=== PATIENT | male | born 1955 | race Caucasian/White ===

== ENCOUNTER 2018-10-13 20:18 | Inpatient (IN) ==
[2018-10-13] MEDS ORDERED: ASPIRIN ONE (20:23)
[2018-10-13] MEDS ORDERED: ASPIRIN PO ONE (20:27)
[2018-10-13] MEDS ORDERED: CARDIZEM ONE (20:33)
[2018-10-13] MEDS ORDERED: CARDIZEM IV ONE (20:35)
[2018-10-13 20:49] LABS: BASO% 0.8 % (0.0-0.8); EOS# 0.12 X1000 (0.0-0.7); HEMATOCRIT 35.4 % (42.0-52.0); HEMOGLOBIN 11.3 g/dL (14.0-18.0); IMM GRAN# 0.03 X1000 (0.0-0.04); IMM GRAN% 0.3 % (0.0-0.5); LYMPH# 1.62 X1000 (1.2-3.4); LYMPH% 13.5 % (20.5-51.1); MCH 33.5 PG (27-31); MCHC 31.9 g/dL (33-37); MONO# 1.53 X1000 (0.11-0.59); MONO% 12.8 % (1.7-9.3); MPV 9.8 FL (7.4-10.4); NEUT# 8.56 X1000 (1.4-6.5); NEUT% 71.6 % (42.2-75.2); PLT 303 X1000 (130-400); RBC 3.37 XMIL (4.7-6.1); RDW 14.1 % (11.5-14.5); WBC 11.96 X1000 (4.8-10.8)
[2018-10-13] MEDS ORDERED: CORDARONE IV ONE ×2 (20:56→21:45)
[2018-10-13 21:06] LABS: INR 1.11; PROTIME 14.9 Seconds (11.0-16.0)
[2018-10-13 21:07] LABS: PTT 30.9 Seconds (22.3-41.8)
[2018-10-13 21:13] LABS: AGAP 13; ALBUMIN 3.6 g/dL (3.5-5.0); ALKALINE PHOSPHATASE 87 U/L (32-122); BUN 13 mg/dL (8-22); CALCIUM 8.8 mg/dL (8.8-10.2); CHLORIDE 92 mmol/L (98-107); CK PROFILE 96 U/L (24-204); COSMO 282; CREATININE 0.8 mg/dL (0.7-1.2); ESTIMATED GFR > 60; GLUCOSE 304 mg/dL (70-104); GOT 10 U/L (10-34); GPT 8 U/L (10-44); POTASSIUM 3.8 mmol/L (3.5-5.1); SODIUM 135 mmol/L (136-145); TCO2 30 mmol/L (25-35); TOTAL PROTEIN 7.3 g/dL (6.3-8.3)
--- NOTE | 2018-10-13 21:33 | Diag Imaging Result Doc PS360 ---
EXAM: CHEST-1 VIEW - 10/13/2018 HISTORY: cp TECHNIQUE: Portable chest COMPARISON: 12/20/2017 FINDINGS: Heart size is normal. There are COPD/emphysematous changes. There is no dense consolidation, pleural effusion, or pneumothorax identified. IMPRESSION: COPD/emphysematous changes. No discrete pneumonia. No pneumothorax. Electronically signed by Colin Gramajo 10/13/2018 9:31 PM
[2018-10-13] MEDS ORDERED: MORPHINE IV ONE ×2 (21:49→23:35)
[2018-10-13] MEDS ORDERED: ZOFRAN IV ONE (21:49)
[2018-10-13] MEDS ORDERED: CARDIZEM 100 MG/NS 100 MG/100 ML IVPB IV SCH ×2 (22:00→23:45)
--- NOTE | 2018-10-13 22:04 | PROVIDER DOCUMENTATION ---
This chart was entered by Marli Reyna Scribe, acting as scribe for Florentino Obrien MD. HPI-Chest Pain - General Chief Complaint: Chest Pain Stated Complaint: CP Time Seen by Provider: 10/13/18 20:22 Source: patient Allergies/Adverse Reactions: Patient Allergies Allergy/AdvReac Type Severity Reaction Status Date / Time pneumococcal vaccine Allergy Unknown Verified 12/06/15 15:21 Home Medications: Home Medication List Medication Instructions Recorded Confirmed Last Taken Type Aspirin 81 mg PO DAILY 08/02/12 06/29/17 Unknown History Amiodarone [Cordarone] 200 mg PO DAILY 12/06/15 06/29/17 Unknown History Lisinopril/Hydrochlorothiazide 1 each PO DAILY 12/06/15 06/29/17 Unknown History [Lisinopril-Hctz 20-25 mg Tab] PRAVAstatin [Pravachol] 40 mg PO QHS 12/06/15 06/29/17 Unknown History Albuterol Sulfate Inhaler 2 puff INH Q6H PRN PRN 06/29/17 06/29/17 Unknown History [Ventolin Hfa] Ipratropium/Albuterol Sulfate 3 ml IH DAILY PRN 06/29/17 06/29/17 Unknown History [Iprat-Albut 0.5-3(2.5) mg/3 ml] Metformin HCl [Fortamet] 1,000 mg PO DAILY 06/29/17 06/29/17 Unknown History - History of Present Illness-CP Nature of Presenting Problem: pt is a 62 yr old male presenting with complaint of chest pain and worsening shortness of breath. pt reports while sitting, talking her began having chest pain, dypnea worsened. pt hx of COPD and is on 3L continuous o2 home. Location: reports: central Chest Pain Radiation: reports: no radiation Quality of Pain: reports: dull Severity in ED: moderate Onset/Duration: this morning Timing: constant Context/Activities at Onset: reports: light activity Modifying Factors: improves with: exercise (worsens sypmtoms) Associated Symptoms: reports: shortness of breath. denies: nausea Nitro Today/Relief: no nitro taken today Aspirin Treatment Today: 325 mg x 1, provided by ED Similar Symptoms Previously?: No Recently Seen Here or By Another Healthcare Provider: No Review of Systems - Adult - REVIEW OF SYSTEMS - ADULT Constitutional: reports: fatique. denies: chills, fever Eyes: denies: discharge, redness Ears, Nose, Mouth & Throat: reports: no symptoms reported Cardiovascular: reports: chest pain. denies: palpitations, syncope Respiratory: reports: dyspnea on exertion, shortness of breath. denies: cough Gastrointestinal: reports: no symptoms reported Genitourinary: reports: no symptoms reported Musculoskeletal: reports: no symptoms reported Integumentary: reports: no symptoms reported Neurological: denies: dizziness/vertigo, headache/migraines Psychiatric: reports: no symptoms reported Endocrine: reports: no symptoms reported Hematologic/Lymphatic: reports: no symptoms reported Allergic/Immunologic: reports: no symptoms reported All Other Systems: Reviewed and Negative Past History - Adult - PAST MEDICAL HISTORY-ADULT Review of Records: reports: Old Records Reviewed, Nursing Assessment Review, Medications Reviewed, Social history reviewed & non-contributory. Major Childhood Illnesses: reports: denies history Cardiovascular: reports: A-Fib, CHF, HTN Respiratory: reports: COPD Gastrointestinal: reports: denies history Obstetrical/Gynecological: reports: denies history Genitourinary: reports: denies history Musculoskeletal: reports: denies history Neurological: reports: denies history Endocrine/Immune: reports: Diabetes Other Conditions: reports: denies history - PRIOR SURGERIES/PROCEDURES Surgical/Procedure History: reports: reviewed, not pertinent - IMMUNIZATION STATUS Childhood Immunizations: See Nurse Assessment Flu Vaccine: See Nurse Assessment - FAMILY HISTORY Family History: reviewed, not pertinent - SOCIAL HISTORY Smoking: cigarettes, greater than 1 pack/day Provider spent 3-5 mins advising pt. on dangers of tobacco.: Discussed manners to quit use, and f/u contacts for add'l counseling. Substance Use: alcohol Alcohol Use Frequency: 3-4 times a week Number of drinks per typical drinking period:: 3-4 drinks Living Situation: alone Physical Exam-General - PHYSICAL EXAM-ADULT Initial Vital Signs Reviewed: Yes - CONSTITUTIONAL General Appearance: alert, moderate distress, obese - EYES Eyes: PERRL/EOMI - HEAD, EARS, NOSE, MOUTH & THROAT HENMT: moist mucous membranes - NECK Neck: non-tender, full range of motion, supple, normal inspection - RESPIRATORY Respiratory: decreased breath sounds, accessory muscle use, prolonged expiration , increased rate, other (shallow breathing with prolonged, pursed lip expirations) - CARDIOVASCULAR Cardiovascular: normal peripheral pulses, regular rate, rhythm, no edema - GASTROINTESTINAL (ABDOMEN) Abdominal Exam: normal bowel sounds, non tender, soft - LYMPHATIC Lymphatic: no adenopathy - MUSCULOSKELETAL Back Exam: normal inspection, no CVA tenderness, no vertebral tenderness Extremity: normal range of motion, non-tender, normal inspection - SKIN Integumentary: normal color, normal turgor, warm/dry - NEUROLOGIC Neurologic: grossly normal, no motor/sensory deficits - PSYCHIATRIC Psych/Mental Status: normal mood/affect - HEART Score HEART Score: History: Slightly Suspicious HEART Score: ECG: Non-Specific Repolarization Disturbance/LBBB/PM HEART Score: Age: 45-65 Years HEART Score: Risk Factors for Atherosclerotic Disease: > or = 3 Risk Factors or History of Atherosclerotic Disease HEART Score: Troponin: < or = Normal Limit (4) Total HEART Score:: 4 Progress - PLAN OF CARE/RESULTS Progress/Plan/Lab Results: Vital Signs - 8 hr 10/13/18 20:20 10/13/18 20:52 Temperature 98.4 F Pulse Rate 170 H 132 H Respiratory Rate 20 19 Blood Pressure 161/129 100/82 O2 Sat by Pulse Oximetry 93 L 95 Laboratory Results - last 24 hr 10/13/18 10/13/18 10/13/18 20:35 20:35 20:35 WBC 11.96 H RBC 3.37 L Hgb 11.3 L Hct 35.4 L MCV 105.0 H MCH 33.5 H MCHC 31.9 L RDW Std Deviation 14.1 Plt Count 303 MPV 9.8 Immature Gran % (Auto) 0.3 Neut % (Auto) 71.6 Lymph % (Auto) 13.5 L Summers % (Auto) 12.8 H Eos % (Auto) 1.0 Baso % (Auto) 0.8 Immature Gran # (Auto) 0.03 Neut # (Auto) 8.56 H Lymph # (Auto) 1.62 Summers # (Auto) 1.53 H Eos # (Auto) 0.12 Baso # (Auto) 0.10 PT INR PTT (Actin FS) Sodium 135 L Potassium 3.8 Chloride 92 L Carbon Dioxide 30 Anion Gap 13 BUN 13 Creatinine 0.8 Estimated GFR/1.73 m2 > 60 BUN/Creatinine Ratio 16 Glucose 304 H POC Glucose Calculated Osmolality 282 Calcium 8.8 Total Bilirubin 0.40 AST 10 ALT 8 L Alkaline Phosphatase 87 Creatine Kinase 96 Troponin T Ioy-I-Zjqfspgiijy Pept 221 H Total Protein 7.3 Albumin 3.6 Globulin 4.0 Albumin/Globulin Ratio 1.0 10/13/18 10/13/18 10/13/18 20:35 20:35 20:56 WBC RBC Hgb Hct MCV MCH MCHC RDW Std Deviation Plt Count MPV Immature Gran % (Auto) Neut % (Auto) Lymph % (Auto) Summers % (Auto) Eos % (Auto) Baso % (Auto) Immature Gran # (Auto) Neut # (Auto) Lymph # (Auto) Summers # (Auto) Eos # (Auto) Baso # (Auto) PT 14.9 INR 1.11 PTT (Actin FS) 30.9 Sodium Potassium Chloride Carbon Dioxide Anion Gap BUN Creatinine Estimated GFR/1.73 m2 BUN/Creatinine Ratio Glucose POC Glucose 330 H D Calculated Osmolality Calcium Total Bilirubin AST ALT Alkaline Phosphatase Creatine Kinase Troponin T < 0.010 Ber-C-Jvlnhptbcrv Pept Total Protein Albumin Globulin Albumin/Globulin Ratio Orders Category Date Time Status Admit - [facility] Routine AdmDCTranf 10/13/18 22:02 Ordered Cardiac Monitoring DIRECTED Care 10/13/18 20:28 Active Oxygen Therapy- ED Nursing DIRECTED Care 10/13/18 20:28 Active Saline Loc NOW Care 10/13/18 20:28 Active CHEST-1 VIEW [RAD] Stat Exams 10/13/18 20:58 Completed CBC WITH ELECTRONIC DIFF [HEME] Stat Lab 10/13/18 20:35 Completed CK PROFILE [SP CHEM] Stat Lab 10/13/18 20:35 Completed COMPREHENSIVE METABOLIC PANEL [CHEM] Stat Lab 10/13/18 20:35 Completed PRO B-NATRIURETIC PEPTIDE Stat Lab 10/13/18 20:35 Completed PROTIME WITH INR [COAG] Stat Lab 10/13/18 20:35 Completed PTT [COAG] Stat Lab 10/13/18 20:35 Completed TROPONIN T Stat Lab 10/13/18 20:35 Completed Amiodarone [Cordarone] Med 10/13/18 20:56 Discontinued 150 mg IV NOW ONE Amiodarone [Cordarone] Med 10/13/18 21:45 Discontinued 150 mg IV NOW ONE Aspirin Med 10/13/18 20:23 Discontinued 325 mg .ROUTE .STK-MED ONE Aspirin Med 10/13/18 20:27 Discontinued 325 mg PO NOW ONE Diltiazem 100 mg/Ns [Cardizem 100 mg/Ns] Med 10/13/18 22:00 Ordered 100 mg in 100 ml IV As Directed Diltiazem [Cardizem] Med 10/13/18 20:35 Discontinued 10 mg IV NOW ONE Diltiazem [Cardizem] Med 10/13/18 20:33 Discontinued 25 mg .ROUTE .STK-MED ONE Morphine Med 10/13/18 21:49 Discontinued 4 mg IV NOW ONE Ondansetron [Zofran] Med 10/13/18 21:49 Discontinued 4 mg IV NOW ONE CP/SOB/Palp >45 yrs of Age Stat Oth 10/13/18 20:28 Ordered EKG [EKG] Stat Ther 10/13/18 20:28 Ordered Transfer/Admit Order [TRANSFER] Routine Transfer 10/13/18 22:01 Ordered A/P: Afib w RVR. Gave 2 doses of 10 mg Cardizem, 2 doses of miodarone 150 mg, has not resolved RVR. Will admit to Dr alonso Result Diagrams: 10/13/18 20:35 10/13/18 20:35 - CONSULTS/PCP/HOSPITALIST Notification #1 *Consult/PCP/Hospitalist*: Dr alonso Time Discussed: 22:04 Consult Disposition: Admit Departure - Departure Date of Disposition Decision: 10/13/18 Time of Disposition Decision: 22:04 DIAGNOSIS: Atrial fibrillation with RVR Disposition: ADMITTED INPATIENT 09 Certified Medical Emergency: Emergent Condition: Stable Additional Freetext Instructions: We have examined and treated you today on an emergency basis only. This was not a substitute for, or an effort to provide, complete medical care. In most cases , you must let your doctor check you again. Tell your doctor about any new or lasting problems. We cannot recognize and treat all injuries or illnesses in one Emergency Department visit. If you had special tests, such as X-rays or CT scans, will be reviewed by radiologist and will call you if there are any new suggestions Follow up with primary care provider in 1 to 2 days if no improvement. If you do not have a primary care provider, you need to choose one as soon as possible. Take medicines as prescribed. Monitor for any side effects or adverse events from medications. If any side effect, adverse event or rash develops, or if you suspect any other adverse reaction to the medication, then discontinue the medication immediately and contact clinic /PCP or go to the nearest ER. Narcotic meds / sedative meds instruction - patent advised not to drive, operate any machinery or go into water after taking meds as it may impair mental ability to react to the situation in an appropriate manner. Continue other current medicines. Follow up with PCP within 24-48 hours, or sooner if symptoms worsen or fail to improve. Patient / guardian verbalizes understanding of treatment plan, medication, and side effects and agrees with treatment plan. Patient leaves ER in stable condition and ambulatory state. Return to ER as needed. Discharge instructions reviewed verbally and given to patient in written form. Follow up with primary Referrals and Follow-Ups: Tali Hartmann MD [Primary Care Provider] - - Critical Care Note This patient required my direct & personal management of CC.: No Attestation - Physician/ PATTIE Attestation Patient care was provided by Advanced Practice Provider:: No The physician spent face to face time with patient:: Yes Advanced Practice Provider documentation review:: Supervising physician onsite and consulted in the evaluation and care of this patient. The physician did have a face to face encounter with the patient. This chart was documented by the indicated scribe, (Marli Reyna, Lindsay) and accurately reflects the services I performed and decisions made by me, Florentino Obrien MD, as attested by the provider's signature.
--- NOTE | 2018-10-13 22:13 | ED EKG INTERP ---
This chart was entered by Marli Reyna Scribe, acting as scribe for Florentino Obrien MD. EKG Interpretation - EKG Time of EKG reading by physician:: 20:25 EKG Read and Signed by:: Florentino Obrien EKG Interpretation (*Must complete 3 of following elements*): Abnormal (left posterior fasicular block, bifasicular block) Rate: 151 Rhythm: afib with RVR with PVCs Mccrory: normal QRS: RBB, other (bifasicular block, left posteroir fasicular block) SD Interval: normal ST Wave: normal Attestation - Physician/ PATTIE Attestation Patient care was provided by Advanced Practice Provider:: No The physician spent face to face time with patient:: Yes Advanced Practice Provider documentation review:: Supervising physician onsite and consulted in the evaluation and care of this patient. The physician did have a face to face encounter with the patient. This chart was documented by the indicated scribe, (Marli Reyna Scribe) and accurately reflects the services I performed and decisions made by Micah gant Christophe J., MD, as attested by the provider's signature.
[2018-10-13] MEDS ORDERED: CARDIZEM 125/NS 125 MG/125 ML IVPB ONE (23:48)
[2018-10-14] MEDS ORDERED: DUONEB (A & A) INH ONE (00:07)
[2018-10-14] MEDS ORDERED: SOLU-MEDROL IV ONE (00:46)
--- NOTE | 2018-10-14 01:15 | ED EKG INTERP ---
This chart was entered by Marli Reyna Scribe, acting as scribe for Florentino Obrien MD. EKG Interpretation - EKG Time of EKG reading by physician:: 00:53 EKG Read and Signed by:: Florentino Obrien EKG Interpretation (*Must complete 3 of following elements*): Abnormal ( indeterminate axis) Rate: 93 Rhythm: sinus rhythm with occ PVCs QRS: RBB, PVC's Attestation - Physician/ PATTIE Attestation Patient care was provided by Advanced Practice Provider:: No The physician spent face to face time with patient:: Yes Advanced Practice Provider documentation review:: Supervising physician onsite and consulted in the evaluation and care of this patient. The physician did have a face to face encounter with the patient. This chart was documented by the indicated scribe, (Marli Reyna, Lindsay) and accurately reflects the services I performed and decisions made by me, Florentino Obrien MD, as attested by the provider's signature.
[2018-10-14] MEDS ORDERED: DUONEB (A & A) INH PRN (01:18)
[2018-10-14] MEDS ORDERED: NS 1,000 ML IV SCH (01:30)
[2018-10-14] MEDS: MORPHINE IV PRN ×3 (01:50→13:14)
[2018-10-14] MEDS ORDERED: CARDIZEM 125/NS 125 MG/125 ML IVPB IV SCH (06:17)
--- NOTE | 2018-10-14 08:27 | EKG Report ---
Test Performed on : 10/14/2018 00:53:51 AM Test Reason : cp Blood Pressure : / mmHG Vent. Rate : 093 BPM Atrial Rate : 093 BPM P-R Int : 186 ms QRS Dur : 132 ms QT Int : 398 ms P-R-T Axes : 068 065 069 degrees QTc Int : 494 ms Sinus rhythm. with occasional premature ventricular complexes. Indeterminate axis Right bundle branch block Abnormal ECG When compared with ECG of 13-OCT-2018 20:25, (Unconfirmed) Sinus rhythm. has replaced Atrial fibrillation. Vent. rate has decreased BY 58 BPM Non-specific change in ST segment in Anterior leads Unconfirmed Result
[2018-10-14] MEDS ORDERED: CARDIZEM 125/NS 125 MG/125 ML IVPB IV PRN (08:30)
--- NOTE | 2018-10-14 08:36 | EKG Report ---
Test Performed on : 10/13/2018 8:25:19 PM Test Reason : cp Blood Pressure : / mmHG Vent. Rate : 151 BPM Atrial Rate : 166 BPM P-R Int : 000 ms QRS Dur : 124 ms QT Int : 300 ms P-R-T Axes : 000 146 055 degrees QTc Int : 475 ms Atrial fibrillation. with rapid ventricular response. with premature ventricular or aberrantly conduc juan luis complexes. Right bundle branch block Left posterior fascicular block Bifascicular block Abnormal ECG When compared with ECG of 13-OCT-2018 20:24, (Unconfirmed) No significant change was found Unconfirmed Result
[2018-10-14] MEDS ORDERED: VENTOLIN HFA INH PRN (08:39)
[2018-10-14] MEDS ORDERED: GLUCOPHAGE XR PO SCH (09:00)
[2018-10-14] MEDS ORDERED: HYDROCHLOROTHIAZIDE PO SCH (09:00)
[2018-10-14] MEDS ORDERED: CORDARONE PO SCH ×2 (09:00→09:45)
[2018-10-14] MEDS ORDERED: NON-FORMULARY MED (Lisinopril/Hydrochlorothiazide [Lisinopril-Hctz 20-25 Mg Tab] 1 EACH) PO SCH (09:00)
[2018-10-14] MEDS: PRINIVIL PO SCH (10:18)
[2018-10-14] MEDS: ASPIRIN PO SCH (10:19)
[2018-10-14] MEDS: HUMALOG (PARKWAY) SUBQ SCH ×3 (11:41→21:41)
[2018-10-14] MEDS: DUONEB (A & A) INH PRN ×2 (11:43→22:41)
[2018-10-14] MEDS ORDERED: LASIX IV SCH (12:00)
[2018-10-14] MEDS ORDERED: SOLU-MEDROL IV SCH (12:00)
--- NOTE | 2018-10-14 13:25 | HISTORY AND PHYSICAL ---
PRIMARY CARE PHYSICIAN: Dr. Tali Hartmann PROFESSIONAL NURSE: Dr. Vicente. CHIEF COMPLAINT: Chest pain and worsening shortness of breath despite being on 3 L of O2 at home. HISTORY OF PRESENTING ILLNESS: This is a 62-year-old male who presents to [facility] ER with complaints of chest pain and worsening shortness of breath. He states the pain began while he was sitting and talking, and began having left-sided chest pain, dyspnea that worsened despite being on his home O2 at 3 L via nasal cannula. He states he felt some palpitations as well. His workup in the emergency room showed an EKG with atrial fibrillation with RVR at 151. He was given Cardizem 10 mg IV x1, aspirin p.o. x1, amiodarone 150 mg IV x1 in the emergency room. His rate decreased down to 93, and was in sinus rhythm with occasional PVCs. Currently, he is in atrial fibrillation but is rate controlled in the upper 80s and low 90s. He was admitted to the intensive care unit for further evaluation and treatment. The patient states that he has not been taking his medications as prescribed, the reason was "because I was being stupid", and was not for any financial reasons that he was not taking his medications as prescribed. He states he saw Dr. Vicente outpatient approximately 1 month ago. PAST MEDICAL HISTORY: Atrial fibrillation, CHF, hypertension, COPD, and diabetes. PAST SURGICAL HISTORY: Hernia repair and an appendectomy. FAMILY HISTORY: Hypertension. SOCIAL HISTORY: He currently lives alone. He has been a 2 pack a day smoker for 40+ years. Denies any alcohol or illicit drug use. ALLERGIES: Pneumococcal vaccine. HOME MEDICATIONS: 1. Ventolin 2 puff inhalation q.6 hours p.r.n. 2. Amiodarone 200 mg p.o. daily. 3. Aspirin 81 mg p.o. daily. 4. Ipratropium/albuterol sulfate 3 mL inhalation daily p.r.n. 5. Lisinopril/hydrochlorothiazide 20/25 one p.o. daily. 6. Metformin 1000 mg p.o. daily. 7. Pravastatin 40 mg p.o. at bedtime. LABORATORY DATA: White blood cell count of 11.96, hemoglobin 11.3, hematocrit 35.4, and platelets 303,000. The PT and INR of 14.9 and 1.11. Sodium of 135, potassium 3.8, chloride 92, CO2 30, BUN of 13, creatinine 0.8, and glucose 304. Cardiac enzymes x2 sets were negative. EKG showed atrial fibrillation with RVR at 151 on arrival. Chest x-ray with COPD and emphysematous changes, but no discrete pneumonia or pneumothorax noted. REVIEW OF SYSTEMS: He denied any fever, chills, blurred vision, or dizziness. He was positive for chest pain and palpitations, but no radiating. Positive for shortness of breath, but no cough. No abdominal pain, constipation, diarrhea, or burning or hurting with urination. PHYSICAL EXAMINATION: VITAL SIGNS: Temperature 98.4 degrees, pulse 170, respirations 20, blood pressure was 161/129, saturating 93% on 4 L. Currently, her O2 saturation is 93% on 4 L, 92 heart rate, and still in atrial fibrillation. GENERAL: This is a 62-year-old male who is sitting up in the bed eating breakfast and answers questions appropriately. HEENT: Normocephalic, atraumatic. Normal ENT on inspection. Oropharynx and nares are clear. Eyes: Pupils are equal, round, and reactive to light and accommodation. Extraocular movements are intact. NECK: Normal inspection. Normal range of motion. LUNGS: Clear to auscultation bilaterally with equal lung expansion and chest wall movement. HEART: Irregular rate and rhythm, but no murmurs, rubs, or gallops. ABDOMEN: Soft, nontender, and nondistended. Bowel sounds are present x4 quadrants. MUSCULOSKELETAL: He has 5/5 strength x4 extremities. NEUROLOGICAL: The cranial nerves 2-12 are grossly intact. ASSESSMENT: 1. Atrial fibrillation with rapid ventricular response now rate controlled. 2. Chest pain resolved. 3. Hypertension. 4. Diabetes type 2. 5. Medical noncompliance. PLAN: He was admitted to the intensive care unit. Placed on a diabetic diet. Pattern blood sugars with sliding scale insulin. We will check an echocardiogram today. He is on morphine 4 mg IV q.4 hours p.r.n. We will continue his home medications as previously identified. Recheck a CBC and BMP in the morning. Further orders after seen by attending. Dictated by AMAN Daniels for Ezio Cedeño MD cc: AkMD Ancelmo Becker MD Kami Whorton, CRNP Alexis R. Penot, MD
[2018-10-14 14:06] LABS: BILIRUBIN URINE NEGATIVE (NEGATIVE); BLOOD URINE TRACE (NEGATIVE); CLARITY CLEAR (CLEAR); COLOR YELLOW; KETONE URINE TRACE mg/dL (NEGATIVE); LEUKOCYTES URINE NEGATIVE (NEGATIVE); NITRITE URINE NEGATIVE (NEGATIVE); PROTEIN URINE TRACE mg/dL (NEGATIVE); SP GRAVITY URINE 1.015; UROBILINOGEN URINE 4 mg/dL
[2018-10-14 14:33] LABS: URINE BACTERIA 1+ /HFP; URINE CAST NONE SEEN /LPF; URINE CRYSTAL NONE SEEN /HPF; URINE EPITHELIAL CELLS <10 /HPF (<10); URINE RBC <10 /HPF (<10); URINE SOURCE CATH; URINE WBC <10 /HPF (<10); URINE YEAST NONE SEEN /HPF
--- NOTE | 2018-10-14 15:35 | PROGRESS NOTE ---
DATE: 10/14/2018 SUBJECTIVE: The patient has no major complaints breathing. He could not breathe yesterday. He came in. He looked at his O2 saturation as an outpatient and heart rate was in the 150s, so he came in for evaluation. He was in atrial fibrillation with RVR and he was admitted for treatment. His chest x-ray is clear or just consistent with COPD. He does have wheezing on exam. His heart rate is now regular, overall stable, and the patient is overall improved. His atrial fibrillation has been rate controlled now with amiodarone and Cardizem and he seems better. PROBLEM LIST: Atrial fibrillation with rapid ventricular response. He seems to be resolved. Recently his amiodarone was decreased because he has been stable, but he tells me he only takes his medicines very intermittently. Sometimes it will be a week and he will not take his amiodarone. It does have a long half-life, but I am not sure if he is actually getting full treatment doses. I am going to bump up the amiodarone 400 b.i.d. I am not really sure about doing a full load again. I will try to get a cardiology opinion if available. At this point he may need even a little diuresis. I am going to give him a little bit of Lasix because he does have some peripheral edema and we will evaluate for heart failure and those kinds of things. I do not think there is any evidence of ischemia. He has had 2 sets of cardiac enzymes and they were negative. I have not had any other further enzymes. Echo has been ordered. We will work on diabetic control as well. Check an A1c. I am going to bump up his metformin. For his COPD, he has a mild COPD exacerbation, so we will continue breathing treatments and steroids and monitor his level. He is diabetic and hypertensive. He is not on anticoagulation, but I think he meets criteria. We will discuss with cardiology about that. There may be a reason they have taken him off of that related to other issues. cc: Ezio Cedeño MD
--- NOTE | 2018-10-14 16:19 | CARDIOLOGY CONSULTATION ---
DATE: 10/14/2018 REASON FOR CONSULTATION: Cardiology was consulted for chest pain, shortness of breath, atrial fibrillation Mr. Everett Loving is a 62-year-old gentleman who I follow in the clinic has history of hypertension, diabetes, COPD, last episode of atrial fibrillation was in 2011. I saw him recently. He had a stress test which revealed severe grade large-sized fixed defect in the left ventricular apex suggestive of scar however he has not had any previous cardiac history and he did not complain of chest pain when I had seen him and we decided to do further investigation should he have any chest pains. He takes oxygen at home. He has COPD as well. He came to the emergency room with having had left-sided chest discomfort for the last couple of days at least 2 to 3 days, however when he came to the emergency room he noticed that his heart rate was very high and he had worsening chest pain. He was noted to be in atrial fibrillation was given Cardizem, amiodarone 150 mg IV in the emergency room. Patient converted to sinus rhythm. At the time of my examination patient was pain free. His cardiac enzymes were negative. There is no dizziness or syncope. He says he has not been taking his amiodarone recently and this has been of late in the last week. REVIEW OF SYSTEM: 14-point review of systems was done. GI: There is no history of nausea, vomiting, diarrhea. There is no history of hematemesis or melena. Central nervous system: No focal weakness to suggest a CVA, TIA. : There is no dysuria or hematuria. PAST MEDICAL HISTORY: 1. Paroxysmal atrial fibrillation last episode in 2011 and episode during this hospitalization. 2. Severe COPD on no home oxygen. 3. Hypertension. 4. Hyperlipidemia. 5. Diabetes. 6. Tobacco abuse. Smokes about 2 packs of cigarettes a day. 7. History of diastolic heart failure. 8. Preserved left ventricular systolic function by echocardiogram. SOCIAL HISTORY: Patient lives alone. There is no history of alcohol abuse. HOME MEDICATIONS: Amiodarone 200 mg a day, aspirin 81 mg a day, lisinopril hydrochlorothiazide 20/25, metformin 1000, pravastatin 40, inhalers, oxygen. ALLERGIES: He is not known to be allergic to any medication. PHYSICAL EXAMINATION: Blood pressure when he came in was 160/120, currently blood pressure 108/71. Jugular sinus pressure was normal. First and second heart sounds were heard. There was no S3 gallop.Respiratory: Scattered wheeze. Abdomen: Soft, nontender. There was no guarding or rigidity. Bowel sounds were heard. Central nervous system: Alert and was moving all 4 extremities. Examination of extremities revealed no pedal edema. HEENT: Atraumatic, normocephalic. Pupils were reacting to light . LABORATORY EXAMINATION: Revealed sodium 135, potassium 3.8, BUN 13, creatinine 0.8, glucose 304. Cardiac enzymes 2 sets negative. Chest x-ray COPD emphysematous changes. CURRENT MEDICATIONS: In addition to his home medications in the hospital his amiodarone was increased to 400 mg twice a day. Given his COPD we will cut it down to 200 mg a day. ASSESSMENT AND PLAN: Mr. Everett Loving is a 62-year-old gentleman with history of hypertension, diabetes, chronic obstructive pulmonary disease, history of diastolic heart failure in the past, past episode of atrial fibrillation was in 2011 comes with complaints of having episodes of chest discomfort 2 to 3 days prior to his admission, when he was admitted he had increasing chest pain with palpitations. He was noted to be in atrial fibrillation was given amiodarone 150 intravenous and Cardizem and he is in sinus rhythm. RECOMMENDATIONS: 1. Given his multiple risk factors and stress test which revealed severe fixed defect when I saw him in the clinic there was no ischemia, however he has been having episodes of chest pain suggestive of unstable angina. Cardiac enzymes are negative. Given this, I have recommended that he undergo left heart catheterization. Risks, benefits, alternatives were explained. Patient will be set up for left heart catheterization on Wednesday. 2. We will continue with Lovenox given that he will be undergoing the procedure and in addition to aspirin. 3. As far as his atrial fibrillation is concerned, this is the 2nd episode. He was very well controlled on amiodarone. He has severe COPD as well. I will decrease the amiodarone to 200 mg a day. 4. Diabetes. Continue with glipizide and metformin. 5. Hypertension. He is on lisinopril hydrochlorothiazide. I have not made any changes. 6. For severe COPD he is on inhalers. Would recommend continuing the same medications. Thank you for the consult. Will follow hospital course. cc: Ancelmo Vicente MD
[2018-10-14] MEDS: LOVENOX SUBQ SCH (16:33)
[2018-10-14] MEDS ORDERED: BASAGLAR SUBQ ONE (16:46)
[2018-10-14] MEDS ORDERED: INSULIN PEN NEEDLES ONE (16:56)
[2018-10-14] MEDS ORDERED: SENOKOT PO PRN (20:32)
--- NOTE | 2018-10-14 21:07 | ECHO REPORT ---
ORDER DATE: 10/14/2018 INDICATION: COPD, shortness breath, atrial fibrillation. FINDINGS: 1. The right atrium appears normal in size at 3.7 cm. 2. Trace tricuspid regurgitation. RV systolic pressure of 46. 3. Normal RV size and systolic function. 4. Trace pulmonic insufficiency. 5. Normal left atrial size with a dimension of 3.8 cm. 6. No mitral valve prolapse. Trace mitral regurgitation. 7. Normal LV size, end-diastolic dimension of 4.6. Normal wall thicknesses with a posterior and interventricular septal wall thickness 1.0 cm each. Normal LV systolic function. Estimated EF of 60%. Definity echo contrast was used on this study. 8. Aortic valve appears calcified with some restriction in motion. The valve is trileaflet. There is trace insufficiency. The peak gradient across valve is 46 with a mean of 25. The valve area by continuity equation is 1.16 cm2. 9. Aorta appears slightly dilated at the root with a dimension of 3.8 cm. 10. No pericardial effusion is identified. cc: MD Rosalie Ferro CRNP
[2018-10-14] MEDS: GLUCOPHAGE XR PO SCH (21:39)
[2018-10-14] MEDS: AYR NASAL SPRAY NAS PRN (21:40)
[2018-10-14] MEDS: PRAVACHOL PO SCH (21:40)
[2018-10-14] MEDS: SOLU-MEDROL IV SCH (22:03)
[2018-10-15] MEDS: DUONEB (A & A) INH PRN ×4 (03:35→18:32)
[2018-10-15] MEDS: LOVENOX SUBQ SCH ×2 (05:00→16:24)
[2018-10-15] MEDS ORDERED: LOVENOX SUBQ SCH (06:00)
[2018-10-15] MEDS: HUMALOG (PARKWAY) SUBQ SCH ×4 (06:48→21:36)
[2018-10-15 07:17] LABS: EOS# 0.01 X1000 (0.0-0.7); EOS% 0.1 % (0.0-10.0); HEMATOCRIT 33.7 % (42.0-52.0); HEMOGLOBIN 10.5 g/dL (14.0-18.0); IMM GRAN# 0.06 X1000 (0.0-0.04); IMM GRAN% 0.4 % (0.0-0.5); LYMPH# 0.69 X1000 (1.2-3.4); MCHC 31.2 g/dL (33-37); MONO% 8.7 % (1.7-9.3); MPV 10.1 FL (7.4-10.4); NEUT# 11.85 X1000 (1.4-6.5); NEUT% 85.8 % (42.2-75.2); PLT 317 X1000 (130-400); RBC 3.18 XMIL (4.7-6.1); RDW 13.9 % (11.5-14.5); WBC 13.81 X1000 (4.8-10.8)
[2018-10-15 07:42] LABS: AGAP 11; BUN 20 mg/dL (8-22); CALCIUM 8.8 mg/dL (8.8-10.2); CHLORIDE 91 mmol/L (98-107); COSMO 278; CREATININE 0.6 mg/dL (0.7-1.2); ESTIMATED GFR > 60; GLUCOSE 227 mg/dL (70-104); MAGNESIUM 1.8 mg/dL (1.5-2.7); POTASSIUM 4.1 mmol/L (3.5-5.1); SODIUM 134 mmol/L (136-145); TCO2 32 mmol/L (25-35)
[2018-10-15 08:26] LABS: LYMPHS 7 % (21-51); MONO 6 % (1-9); SEGS 87 % (42-75)
[2018-10-15] MEDS ORDERED: BASAGLAR SUBQ SCH (09:00)
[2018-10-15] MEDS: GLUCOPHAGE XR PO SCH ×2 (09:20→21:35)
[2018-10-15] MEDS: LASIX PO SCH (09:20)
[2018-10-15] MEDS: ASPIRIN PO SCH (09:20)
[2018-10-15] MEDS: CORDARONE PO SCH (09:20)
[2018-10-15] MEDS: PRINIVIL PO SCH (09:20)
[2018-10-15] MEDS: POTASSIUM CHLORIDE 20% LIQUID PO SCH (09:34)
[2018-10-15] MEDS: SOLU-MEDROL IV SCH ×2 (11:50→19:55)
[2018-10-15 12:50] LABS: HEMOGLOBIN A1C 8.5 % (4.8-6.0)
[2018-10-15] MEDS: FLONASE NAS SCH (13:46)
[2018-10-15] MEDS ORDERED: DUONEB (A & A) INH PRN (19:03)
[2018-10-15] MEDS ORDERED: CARDIZEM PO ONE (19:19)
[2018-10-15] MEDS ORDERED: DUONEB (A & A) INH SCH (19:30)
--- NOTE | 2018-10-15 19:44 | PROGRESS NOTE ---
DATE: 10/15/2018 SUBJECTIVE: Patient has no focal complaints. OBJECTIVE: Vital Signs: Blood pressure is improved, 104/49. Heart rate of 104, respiratory rate of 20, temperature 98.3, 96% on 2 L. Cardiovascular: Regular rate and rhythm. Pulmonary: Bilateral breath sounds. Clear to auscultation. GI: Was soft, nontender, nondistended. Bowel sounds are positive. Extremity Exam: No clubbing or cyanosis. Lymphatic exam: No peripheral edema. Neurological: Nonfocal. He does have a little twinge of wheezing, but it is a little bit better than it was before. PROBLEM LIST: 1. Atrial fibrillation with rapid ventricular rate. That is overall improved. He will be on Pacerone. This has been manipulated by Dr. Vicente and he is on Lovenox for the time being. 2. Chronic obstructive pulmonary disease exacerbation. Seems a bit improved per Dr. Vicente's recommendations. We are trying to decrease steroids as soon as possible. With his level of wheezing though, I have got to be careful because we cannot push breathing treatments, which I think at this point I am going to give him levalbuterol and see how he does with that. Because he is relatively tachycardic, I will also give him a dose of Cardizem to see if we can try to get the heart rate under better control. 3. Diabetes. We will continue blood sugars and follow closely. I have started some Lantus. His blood sugars are still not really very good at all, but we are going to wean his steroids and I am going to up his Lantus to 20 and see how he does. We are just going to go to b.i.d. 4. Disposition: We are waiting right heart catheterization, left heart catheterization on Wednesday per Cardiology recommendations. He is still having some intermittent chest pain. His atrial fibrillation is still not completely controlled. We will continue to follow very closely. I am having to adjust his medications for heart rate control. cc: Ezio Cedeño MD
[2018-10-15] MEDS: ROBITUSSIN-AC PO PRN (19:55)
[2018-10-15] MEDS: PRAVACHOL PO SCH (21:35)
[2018-10-15] MEDS: BASAGLAR SUBQ SCH (21:36)
[2018-10-15] MEDS: XOPENEX NEB INH SCH (22:18)
[2018-10-16] MEDS: XOPENEX NEB INH SCH ×5 (03:41→23:01)
[2018-10-16] MEDS: LOVENOX SUBQ SCH ×2 (04:13→16:13)
[2018-10-16] MEDS: CARDIZEM PO SCH ×2 (05:55→08:54)
[2018-10-16] MEDS: HUMALOG (PARKWAY) SUBQ SCH ×4 (06:33→21:09)
[2018-10-16] MEDS ORDERED: INSULIN PEN NEEDLES MISC PRN (06:46)
[2018-10-16 07:10] LABS: HEMATOCRIT 34.1 % (42.0-52.0); HEMOGLOBIN 10.9 g/dL (14.0-18.0); IMM GRAN# 0.07 X1000 (0.0-0.04); IMM GRAN% 0.6 % (0.0-0.5); LYMPH# 0.87 X1000 (1.2-3.4); LYMPH% 7.2 % (20.5-51.1); MCH 33.6 PG (27-31); MCV 105.2 FL (81-99); MONO# 1.03 X1000 (0.11-0.59); MONO% 8.5 % (1.7-9.3); MPV 9.9 FL (7.4-10.4); NEUT# 10.13 X1000 (1.4-6.5); NEUT% 83.7 % (42.2-75.2); PLT 366 X1000 (130-400); RBC 3.24 XMIL (4.7-6.1); RDW 14.2 % (11.5-14.5)
[2018-10-16 07:30] LABS: AGAP 11; BUN 23 mg/dL (8-22); CALCIUM 8.8 mg/dL (8.8-10.2); CHLORIDE 95 mmol/L (98-107); COSMO 288; CREATININE 0.6 mg/dL (0.7-1.2); ESTIMATED GFR > 60; GLUCOSE 247 mg/dL (70-104); MAGNESIUM 1.8 mg/dL (1.5-2.7); POTASSIUM 4.6 mmol/L (3.5-5.1); SODIUM 138 mmol/L (136-145); TCO2 32 mmol/L (25-35)
[2018-10-16] MEDS: ASPIRIN PO SCH (08:54)
[2018-10-16] MEDS: CORDARONE PO SCH (08:54)
[2018-10-16] MEDS: LASIX PO SCH (08:54)
[2018-10-16] MEDS: POTASSIUM CHLORIDE 20% LIQUID PO SCH (08:54)
[2018-10-16] MEDS: SOLU-MEDROL IV SCH (08:54)
[2018-10-16] MEDS: COZAAR PO SCH (08:54)
[2018-10-16] MEDS: GLUCOPHAGE XR PO SCH ×2 (08:54→21:08)
[2018-10-16] MEDS: BASAGLAR SUBQ SCH ×2 (08:55→21:07)
[2018-10-16] MEDS: FLONASE NAS SCH (08:57)
[2018-10-16] MEDS ORDERED: CORDARONE 360 MG/D5W 360 MG/200 ML IV.SOLN IV ONE (12:17)
[2018-10-16] MEDS ORDERED: CARDIZEM IV ONE (12:17)
[2018-10-16] MEDS ORDERED: MAGNESIUM SULFATE 1 GM/D5W 1 GM/100 ML IVPB IV ONE (13:54)
[2018-10-16] MEDS ORDERED: LANOXIN IV ONE ×3 (14:00→22:00)
--- NOTE | 2018-10-16 14:13 | PROGRESS NOTE ---
DATE: 10/16/2018 SUBJECTIVE: Patient has no focal complaints. He is sitting up eating lunch. Spontaneously this morning, though, his heart rate went into the 130s to 140s, all the way up to 170s with atrial fibrillation. PHYSICAL EXAMINATION: Vital Signs: Current blood pressure 150/70, heart rate was 140s, when I saw him 150s, respiratory rate 24, temp 98.2. Cardiovascular: Tachy, with irregularly irregular. Pulmonary: Occasional wheezing. Gastrointestinal: Soft, nontender, nondistended. Bowel sounds are positive. LABORATORY DATA: White count is 12, hemoglobin and hematocrit 10 and 34, platelets 366,000. Creatinine 0.6, blood sugar 247, mag is 1.8. PROBLEM LIST: 1. Atrial fibrillation with RVR today, which is much worse than usual but was an issue when he initially came in, but that is improved. I have gone ahead and initiated IV amiodarone because I just do not think we can really get by without it and will see how he does. Give him a little bit of magnesium. 2. Chronic obstructive pulmonary disease exacerbation. I think he is doing much better. I am going to drop his Solu-Medrol to daily. I just do not want, his sugars are still elevated. We will drop his Xopenex to half dose. 3. Possible CAD. Plan is for left heart catheterization tomorrow. We will continue to monitor. I am going to give him some additional Lantus because of Lantus just does not seem to be working. 1. Disposition: Plan is to transfer to [facility] tomorrow for left heart catheterization, from what I understand. Dr. Díaz is going to check on him today. I appreciate his input. cc: Ezio Cedeño MD
--- NOTE | 2018-10-16 14:28 | CARDIOLOGY PROGRESS NOTE ---
DATE: 10/16/2018 CHIEF COMPLAINT: Dyspnea, irregular heartbeat. SUBJECTIVE: Mr. Loving was doing fine last night. Unfortunately this morning he developed recurrence of atrial fibrillation and had to be transferred back to the ICU. He has been put back on an IV amiodarone drip. He just felt slightly more dyspneic and also felt a little bit of palpitations. He denies having chest pain. OBJECTIVE: Blood pressure is 150/70, temperature 98.2, pulse 140, respirations 28. He is awake, looking somewhat pale, in no significant distress. HEENT is unremarkable. Chest: Diffusely diminished breath sounds with some end expiratory wheezing. His heart sounds are distant and irregular without gallop or murmur. His abdomen is obese, nontender. Extremities showed trace edema. Neurologic: Follows commands. Moves all 4 extremities. DIAGNOSTIC DATA: His blood work today shows white cell count is 12,100, hemoglobin 10.9, hematocrit 34.1, RDW is 14.2, MCV is 105.2. Sodium is 138, potassium 4.6, BUN is 23, creatinine 0.6. Magnesium is 1.8. Hemoglobin A1c is 8.5%. IMPRESSION: 1. The patient presented with atrial fibrillation with rapid response. This has recurred, and now he is back in the ICU on IV amiodarone. 2. Chronic obstructive pulmonary disease, severe. 3. Remote imaging study indicating presence of abdominal aortic aneurysm of 3.2 x 2.3 cm. This was done in 2011. 4. Tobacco user, heavy. 5. Obesity, body mass index of 32. 6. Diabetes mellitus type 2. RECOMMENDATIONS: At this point in time, we will add digoxin to his regimen to try to make him convert. I would suggest to do a CT scan of the chest and abdomen to evaluate for possible abdominal aortic aneurysm enlargement and also make sure that he does not have any pulmonary nodules that were missed on the chest x-ray. In addition, we will look at coronary calcifications. Of note, his echocardiogram from 10/14/2018 showed normal left ventricular systolic function. His ProBNP was only minimally elevated at 221, normal being 177 for his age. Further advice will follow. cc: Jean-Paul Alston MD
[2018-10-16] MEDS ORDERED: CORDARONE 540 MG in D5W 289.2 ML IV ONE (18:17)
[2018-10-16] MEDS: CORDARONE 360 MG/D5W 360 MG/200 ML IV.SOLN IV SCH (18:51)
[2018-10-16] MEDS: ROBITUSSIN-AC PO PRN (21:07)
[2018-10-16] MEDS: AYR NASAL SPRAY NAS PRN (21:08)
[2018-10-16] MEDS: PRAVACHOL PO SCH (21:08)
[2018-10-17] MEDS: XOPENEX NEB INH SCH ×2 (03:48→08:23)
[2018-10-17] MEDS: LOVENOX SUBQ SCH (04:42)
[2018-10-17] MEDS: CORDARONE 360 MG/D5W 360 MG/200 ML IV.SOLN IV SCH (05:30)
[2018-10-17] MEDS: HUMALOG (PARKWAY) SUBQ SCH (07:04)
[2018-10-17 07:14] LABS: BASO# 0.01 X1000 (0.0-0.2); BASO% 0.1 % (0.0-0.8); EOS# 0.01 X1000 (0.0-0.7); EOS% 0.1 % (0.0-10.0); HEMATOCRIT 34.9 % (42.0-52.0); HEMOGLOBIN 11.1 g/dL (14.0-18.0); IMM GRAN# 0.07 X1000 (0.0-0.04); IMM GRAN% 0.7 % (0.0-0.5); LYMPH# 1.74 X1000 (1.2-3.4); LYMPH% 16.4 % (20.5-51.1); MCH 33.7 PG (27-31); MCHC 31.8 g/dL (33-37); MCV 106.1 FL (81-99); MONO# 1.35 X1000 (0.11-0.59); MONO% 12.7 % (1.7-9.3); MPV 9.9 FL (7.4-10.4); NEUT# 7.45 X1000 (1.4-6.5); PLT 372 X1000 (130-400); RBC 3.29 XMIL (4.7-6.1); RDW 14.5 % (11.5-14.5); WBC 10.63 X1000 (4.8-10.8)
[2018-10-17 07:28] LABS: AGAP 9; BUN 23 mg/dL (8-22); CALCIUM 8.9 mg/dL (8.8-10.2); CHLORIDE 97 mmol/L (98-107); COSMO 282; CREATININE 0.5 mg/dL (0.7-1.2); ESTIMATED GFR > 60; GLUCOSE 172 mg/dL (70-104); POTASSIUM 4.3 mmol/L (3.5-5.1); SODIUM 137 mmol/L (136-145); TCO2 31 mmol/L (25-35)
[2018-10-17 07:56] LABS: ANISOCYTOSIS 1+; LYMPHS 12 % (21-51); MONO 10 % (1-9); SEGS 78 % (42-75)
[2018-10-17 08:00] VITALS: BP 108/63
[2018-10-17] MEDS: POTASSIUM CHLORIDE 20% LIQUID PO SCH (08:36)
[2018-10-17] MEDS: LASIX PO SCH (08:36)
[2018-10-17] MEDS: COZAAR PO SCH (08:36)
[2018-10-17] MEDS: FLONASE NAS SCH (08:36)
[2018-10-17] MEDS: BASAGLAR SUBQ SCH (08:37)
[2018-10-17] MEDS: GLUCOPHAGE XR PO SCH (08:37)
[2018-10-17] MEDS: ASPIRIN PO SCH (08:37)
[2018-10-17] MEDS ORDERED: SOLU-MEDROL IV SCH (09:00)
--- NOTE | 2018-10-17 09:15 | Diag Imaging Result Doc PS360 ---
EXAM: CT THORAX/ABDOMEN W/O CONTRAST HISTORY: EMPHYSEMA/ABDOMINAL AORTIC ANEURYSM/TOBACCO ABUSE TECHNIQUE: Routine chest and abdomen CT with IV contrast. No enteric contrast was administered. COMPARISON: CT abdomen and pelvis 08/18/2012 FINDINGS: CT THORAX: There is marked scattered calcific atherosclerotic disease including coronary artery calcification. There are mildly prominent mediastinal lymph nodes. None meet criteria for pathologic enlargement. No hilar adenopathy. There is pulmonary emphysema. Irregular pleural parenchymal thickening right apex. There is bilateral, diffuse, peribronchial thickening. There are prominent reticular markings and septal thickening within the bilateral lower lobes. There is a small focal area of consolidation left lower lobe. No effusion. No pneumothorax. CT ABDOMEN: Evaluation of the solid visceral organs is limited by lack of IV contrast. There is subcutaneous gas within the anterior abdominal wall likely from recent injection. Correlate clinically. No calcified gallstones are appreciated. There is moderate constipation. No free fluid, free air, or bowel distention. The appendix is surgically absent. No nephrolithiasis or hydronephrosis. Marked scattered calcific atherosclerotic disease is noted including a 3.3 cm infrarenal abdominal aortic aneurysm. Unenhanced liver spleen and pancreas are unremarkable. IMPRESSION: 1.Peribronchial thickening bilateral lungs. 2.Pulmonary emphysema. 3.Bibasilar reticular infiltrates with septal thickening and small area of consolidation left lower lobe. 4.Pleural thickening right apex nonspecific, likely scarring. 5.Moderate constipation. 6.3.3 cm abdominal aortic aneurysm. This exam was performed using automated exposure control, adjustment of mA or kV according to patient size, and/or use of iterative reconstruction technique. Electronically signed by Mary Jane Arita 10/17/2018 9:13 AM
--- NOTE | 2018-10-17 09:20 | EKG Report ---
Test Performed on : 10/16/2018 12:25:21 PM Test Reason : tachycardia Blood Pressure : / mmHG Vent. Rate : 146 BPM Atrial Rate : 082 BPM P-R Int : 000 ms QRS Dur : 124 ms QT Int : 316 ms P-R-T Axes : 000 083 057 degrees QTc Int : 492 ms Atrial fibrillation. with rapid ventricular response. with premature ventricular or aberrantly conduc juan luis complexes. Right bundle branch block Abnormal ECG When compared with ECG of 14-OCT-2018 00:53, (Unconfirmed) Atrial fibrillation. has replaced Sinus rhythm. Vent. rate has increased BY [address] no longer elevated in Inferior leads Non-specific change in ST segment in Anterior leads Unconfirmed Result
--- NOTE | 2018-10-17 12:52 | EKG Report ---
Test Performed on : 10/16/2018 6:03:13 PM Test Reason : Rhythm change Blood Pressure : / mmHG Vent. Rate : 091 BPM Atrial Rate : 091 BPM P-R Int : 166 ms QRS Dur : 138 ms QT Int : 390 ms P-R-T Axes : 078 024 066 degrees QTc Int : 479 ms Normal sinus rhythm. Right bundle branch block Abnormal ECG When compared with ECG of 16-OCT-2018 12:25, (Unconfirmed) Sinus rhythm. has replaced Atrial fibrillation. Vent. rate has decreased BY [address] elevation now present in Inferior leads Unconfirmed Result
--- NOTE | 2018-10-17 21:00 | DISCHARGE SUMMARY ---
ADMISSION DATE: 10/14/2018 DISCHARGE DATE: 10/17/2018 DIAGNOSES: 1. Atrial fibrillation with rapid ventricular response, rate now controlled. 2. Chest pain, resolved. 3. Hypertension. 4. Diabetes mellitus type 2. 5. Obesity with a BMI of 32. 6. Chronic obstructive pulmonary disease. 7. History of abdominal aortic aneurysm 3.3 cm. DIAGNOSTICS: CT of the abdomen and chest without contrast revealed peribronchial thickening in bilateral lungs, pulmonary emphysema, bibasilar reticular infiltrates with septal thickening and small area of consolidation in left lower lobe, 3.3 cm abdominal aortic aneurysm, constipation. HOSPITAL COURSE: Mr. Loving presented to the emergency room for chest pain, shortness of breath. He was found to be in atrial fibrillation, RVR for which he was given Cardizem and amiodarone, and he did convert to sinus rhythm while in the emergency room. He remained in sinus rhythm. He does have a history of COPD. He uses oxygen at home. He was treated. He was given supplemental oxygen. We continued his Ventolin inhaler as well as steroids to taper. Cardiology was consulted, and as he had episodes of chest pain suggestive of unstable angina, it was felt that we needed to proceed with a left heart catheterization, which is scheduled for later today. DISCHARGE PHYSICAL EXAMINATION: Vital Signs: Blood pressure is 108/63 with a heart rate of 72, respirations 19, temperature 97.6 degrees with O2 saturation 96% to 98% on 2 L nasal cannula. Cardiovascular: Regular rate and rhythm. S1 and S2 appreciated. He has no gallop or murmur. Pulmonary: Breath sounds noted with some end-expiratory wheezing. Chest rises and falls symmetric with respiration. Gastrointestinal: Abdomen is soft, nontender, nondistended with bowel sounds in all 4 quadrants. Extremities: He does have some trace lower extremity edema with peripheral pulses palpable x4 extremities. Neurologic: He is alert and oriented x3. DISCHARGE MEDICATIONS: We will hold his medications at present and keep him n.p.o., and discharge medications will be per Cardiology at [facility] on discharge. FOLLOWUP: Will be arranged per [facility] on discharge. DISPOSITION: He is being discharged in transfer to [facility] for heart catheterization and further treatment in stable condition. TIME SPENT: This is a greater than 30-minute discharge. Dictated by AMAN Nguyen for Gary Cisneros MD This chart was documented by, AMAN Nguyen and accurately reflects the services performed, treatment plan and medical decisions as attested by the providers signature Gary Cisneros MD. cc: AMAN Nguyen MD
--- NOTE | 2018-10-18 09:53 | DISCHARGE SUMMARY ---
ADMISSION DATE: 10/14/2018 DISCHARGE DATE: 10/17/2018 ADDENDUM: Patient seen and examined by myself. Admitted to the hospital with atrial fibrillation and RVR that has since returned to sinus. His blood pressure also has dropped most likely iatrogenically due to medications. We will stop any of these as possible. The patient has a planned left heart catheterization, and therefore will be transferred to [facility] for this to occur. cc: Gary Cisneros MD
== END 2018-10-17 10:20 | disposition short-term general hospital (02) | DRG 308 ==
LOC: P.ED 20:18 → P.ICU 10-14 01:12 → SUATTDRO 10-14 01:12 → P.MEDSURG 10-14 18:41 → P.ICU 10-16 13:04
PROVIDERS: ATTEND Family Medicine
CPT/HCPCS: 71010; 71045; 71250; 74150; 80048; 80053; 81001; 82550; 82948; 83036; 83735; 83880; 84484; 85025; 85610; 85730; 93005; 93306; 94640; 94761; 96374; 96375; 96376; 99285; A9270; C8929; J0282; J1160; J1650; J1815; J1940; J2270; J2405; J2920; J2930; J3475; J7030; Q9957; XXXXX

== ENCOUNTER 2018-12-27 13:47 | Inpatient (IN) ==
[2018-12-27] MEDS ORDERED: SOLU-MEDROL IV ONE (13:53)
[2018-12-27] MEDS ORDERED: DUONEB (A & A) INH ONE (13:54)
[2018-12-27 14:15] LABS: BE 3.5 mmoll (-3.0-3.0); BLOOD TYPE ARTERIAL; HCO3-(ACT) 27.7 mmoll (20.0-26.0); O2(CT) 8.9 mL/dL (15.0-23.0); O2HB 95.2 % (95.0-99.0); PCO2(98.6) 40 mmHg (35-45); PO2(98.6) 83 mmHg (60-100); SAMPLE BLOOD; SAO2 97.9 % (95.0-100.0); THB 6.5 g/dL (11.5-17.4); pH(98.6) 7.45 (7.35-7.45)
[2018-12-27 14:19] LABS: BASO# 0.12 X1000 (0.0-0.2); BASO% 1.3 % (0.0-0.8); EOS# 0.09 X1000 (0.0-0.7); HEMATOCRIT 17.9 % (42.0-52.0); IMM GRAN# 0.05 X1000 (0.0-0.04); IMM GRAN% 0.5 % (0.0-0.5); LYMPH# 1.41 X1000 (1.2-3.4); LYMPH% 15.5 % (20.5-51.1); MCH 33.5 PG (27-31); MCHC 31.3 g/dL (33-37); MCV 107.2 FL (81-99); MONO# 1.36 X1000 (0.11-0.59); MONO% 14.9 % (1.7-9.3); MPV 8.6 FL (7.4-10.4); NEUT# 6.07 X1000 (1.4-6.5); NEUT% 66.8 % (42.2-75.2); PLT 409 X1000 (130-400); RBC 1.67 XMIL (4.7-6.1); RDW 15.2 % (11.5-14.5)
[2018-12-27 14:20] LABS: HEMOGLOBIN 5.6 g/dL (14.0-18.0)
[2018-12-27 14:20] LABS: ALLEN TEST YES; MODALITY CANNULA
--- NOTE | 2018-12-27 14:26 | Diag Imaging Result Doc PS360 ---
EXAM: CHEST-1 VIEW HISTORY: sob TECHNIQUE: Chest single view COMPARISON: 10/13/2018 FINDINGS: The lungs are hyperexpanded. There is scarring in the upper right lung. The heart is not enlarged. The vessels are not distended. There are no infiltrates. No effusion identified. IMPRESSION: Emphysema Electronically signed by Domenico Ayoub 12/27/2018 2:23 PM
[2018-12-27 14:31] LABS: OCCULT BLOOD 1 POSITIVE (NEGATIVE)
[2018-12-27 14:31] LABS: INR 1.04; PROTIME 14.1 Seconds (11.0-16.0)
--- NOTE | 2018-12-27 14:31 | PROVIDER DOCUMENTATION ---
This chart was entered by Tasha Gamboa Scribe, acting as scribe for Zachery Peterson MD. HPI-Respiratory General - General Chief Complaint: Shortness of Breath Stated Complaint: RESP DISTRESS Time Seen by Provider: 12/27/18 13:53 Source: patient, EMS Allergies/Adverse Reactions: Patient Allergies Allergy/AdvReac Type Severity Reaction Status Date / Time pneumococcal vaccine Allergy Unknown Verified 12/06/15 15:21 Home Medications: Home Medication List Medication Instructions Recorded Confirmed Last Taken Type Aspirin 81 mg PO DAILY 08/02/12 10/14/18 10/12/18 07:00 History Amiodarone [Cordarone] 200 mg PO DAILY 12/06/15 10/14/18 10/12/18 07:00 History Lisinopril/Hydrochlorothiazide 1 each PO DAILY 12/06/15 10/14/18 10/12/18 07:00 History [Lisinopril-Hctz 20-25 mg Tab] PRAVAstatin [Pravachol] 40 mg PO QHS 12/06/15 10/14/18 10/12/18 07:00 History Albuterol Sulfate Inhaler 2 puff INH Q6H PRN PRN 06/29/17 10/14/18 10/13/18 07:00 History [Ventolin Hfa] Ipratropium/Albuterol Sulfate 3 ml IH DAILY PRN 06/29/17 10/14/18 10/13/18 History [Iprat-Albut 0.5-3(2.5) mg/3 ml] Metformin HCl [Fortamet] 1,000 mg PO DAILY 06/29/17 10/14/18 10/12/18 07:00 History - History of Present Illness-Resp Nature of Presenting Problem: 63 y/o male presents to ED in respiratory distress onset just prior to arrival. Pt reports he has had worsening SOB and cough for the past week. Pt states he has hx COPD and is on home O2. EMS reports O2 sats in 70s and that they gave breathing treatment en route to ED. Pt is alert and oriented. Quality of Pain: reports: none Severity in ED: reports: mild Onset/Duration: reports: just prior to arrival, 1 week ago Timing: reports: still present Context: reports: other (hx COPD) Exposure: reports: other (hx COPD) Episode Frequency: chronic episodes (hx COPD) Current Respiratory Medication Therapy: Initiated see nurses note Modifying Factors: improves with: nothing Associated Symptoms: reports: cough, shortness of breath, short of breath, other (respiratory distress) Similar Symptoms Previously?: Yes (hx COPD) Recently seen or treated by another doctor?: No Review of Systems - Adult - REVIEW OF SYSTEMS - ADULT Constitutional: denies: chills, fever Eyes: reports: no symptoms reported Ears, Nose, Mouth & Throat: reports: no symptoms reported Cardiovascular: denies: chest pain, palpitations Respiratory: reports: cough, shortness of breath, other (respiratory distress) Gastrointestinal: denies: abdominal pain, diarrhea, nausea, vomiting Genitourinary: reports: no symptoms reported Musculoskeletal: denies: back pain, joint pain Integumentary: reports: no symptoms reported Neurological: denies: dizziness/vertigo, seizure Psychiatric: reports: no symptoms reported Endocrine: reports: no symptoms reported Hematologic/Lymphatic: reports: no symptoms reported Allergic/Immunologic: reports: no symptoms reported All Other Systems: Reviewed and Negative Past History - Adult - PAST MEDICAL HISTORY-ADULT Review of Records: reports: Old Records Reviewed, Nursing Assessment Review, Medications Reviewed Major Childhood Illnesses: reports: denies history Cardiovascular: reports: A-Fib, CHF, HTN, hyperlipidemia Respiratory: reports: COPD Gastrointestinal: reports: denies history Obstetrical/Gynecological: reports: denies history Genitourinary: reports: denies history Musculoskeletal: reports: denies history Neurological: reports: denies history Endocrine/Immune: reports: Diabetes Other Conditions: reports: denies history - PRIOR SURGERIES/PROCEDURES Surgical/Procedure History: reports: reviewed, not pertinent, appendectomy - IMMUNIZATION STATUS Childhood Immunizations: See Nurse Assessment Flu Vaccine: See Nurse Assessment - FAMILY HISTORY Family History: reviewed, not pertinent - SOCIAL HISTORY Smoking: cigar Provider spent 3-5 mins advising pt. on dangers of tobacco.: Discussed manners to quit use, and f/u contacts for add'l counseling. Substance Use: none/never Alcohol Use Frequency: occasionally Living Situation: family Physical Exam-General - PHYSICAL EXAM-ADULT Initial Vital Signs Reviewed: Yes - CONSTITUTIONAL General Appearance: appears well, alert, no apparent distress - EYES Eyes: PERRL/EOMI, pink conjunctivae - HEAD, EARS, NOSE, MOUTH & THROAT HENMT: normocephalic/atraumatic, moist mucous membranes, normal ENT inspection - NECK Neck: non-tender, full range of motion - RESPIRATORY Respiratory: chest non-tender, respiratory distress, wheezing - CARDIOVASCULAR Cardiovascular: normal peripheral pulses, regular rate, rhythm - GASTROINTESTINAL (ABDOMEN) Abdominal Exam: normal bowel sounds, non tender, soft - GENITOURINARY Rectal Exam: normal exam, normal rectal tone, black stool Hemoccult Exam: heme positive stool - MUSCULOSKELETAL Back Exam: normal inspection, no CVA tenderness Extremity: normal range of motion, non-tender, normal gait - SKIN Integumentary: normal color, warm/dry - NEUROLOGIC Neurologic: grossly normal - PSYCHIATRIC Psych/Mental Status: normal mood/affect, normal thought content, normal thought process - HEART Score HEART Score: History: Slightly Suspicious HEART Score: ECG: Normal HEART Score: Age: 45-65 Years HEART Score: Risk Factors for Atherosclerotic Disease: > or = 3 Risk Factors or History of Atherosclerotic Disease HEART Score: Troponin: < or = Normal Limit Total HEART Score:: 3 Progress - PLAN OF CARE/RESULTS Progress/Plan/Lab Results: Vital Signs - 8 hr 12/27/18 13:49 12/27/18 14:13 Temperature 98.8 F Pulse Rate 112 H 100 H Respiratory Rate 24 23 Blood Pressure 114/69 O2 Sat by Pulse Oximetry 99 96 Laboratory Results - last 24 hr 12/27/18 12/27/18 12/27/18 13:54 13:58 13:58 WBC 9.10 RBC 1.67 L Hgb 5.6 L* Hct 17.9 L MCV 107.2 H MCH 33.5 H MCHC 31.3 L RDW Std Deviation 15.2 H Plt Count 409 H MPV 8.6 Immature Gran % (Auto) 0.5 Neut % (Auto) 66.8 Lymph % (Auto) 15.5 L Murray % (Auto) 14.9 H Eos % (Auto) 1.0 Baso % (Auto) 1.3 H Immature Gran # (Auto) 0.05 H Neut # (Auto) 6.07 Lymph # (Auto) 1.41 Murray # (Auto) 1.36 H Eos # (Auto) 0.09 Baso # (Auto) 0.12 Segmented Neutrophils 68 Lymphocytes 20 L Monocytes 12 H PT INR PTT (Actin FS) Specimen Type Sample Site pH pCO2 pO2 HCO3 Base Excess Oxyhemoglobin ABG O2 Sat (Calculated) ABG O2 Saturation ABG Carboxyhemoglobin ABG Methemoglobin Javier Test A-a O2 Difference Total Hemoglobin Lactate Liter Flow Blood Gas Modality FiO2 % Sodium 135 L Potassium 4.0 Chloride 98 Carbon Dioxide 26 Anion Gap 12 BUN 17 Creatinine 0.6 L Estimated GFR/1.73 m2 > 60 BUN/Creatinine Ratio 28 Glucose 184 H Calculated Osmolality 276 Calcium 8.8 Total Bilirubin < 0.15 L AST 12 ALT 11 Alkaline Phosphatase 70 Creatine Kinase 78 Troponin T Knr-C-Hukjaeirhdm Pept 247 H Total Protein 6.8 Albumin 3.7 Globulin 3.0 Albumin/Globulin Ratio 1.0 Plasma Lactate Stool Occult Blood Blood Type Blood Type Confirm Antibody Screen Crossmatch 12/27/18 12/27/18 12/27/18 13:58 13:58 13:58 WBC RBC Hgb Hct MCV MCH MCHC RDW Std Deviation Plt Count MPV Immature Gran % (Auto) Neut % (Auto) Lymph % (Auto) Murray % (Auto) Eos % (Auto) Baso % (Auto) Immature Gran # (Auto) Neut # (Auto) Lymph # (Auto) Murray # (Auto) Eos # (Auto) Baso # (Auto) Segmented Neutrophils Lymphocytes Monocytes PT 14.1 INR 1.04 PTT (Actin FS) 31.9 Specimen Type Sample Site pH pCO2 pO2 HCO3 Base Excess Oxyhemoglobin ABG O2 Sat (Calculated) ABG O2 Saturation ABG Carboxyhemoglobin ABG Methemoglobin Javier Test A-a O2 Difference Total Hemoglobin Lactate Liter Flow Blood Gas Modality FiO2 % Sodium Potassium Chloride Carbon Dioxide Anion Gap BUN Creatinine Estimated GFR/1.73 m2 BUN/Creatinine Ratio Glucose Calculated Osmolality Calcium Total Bilirubin AST ALT Alkaline Phosphatase Creatine Kinase Troponin T < 0.010 Sxv-O-Pqdnjytfitg Pept Total Protein Albumin Globulin Albumin/Globulin Ratio Plasma Lactate 1.8 Stool Occult Blood Blood Type Blood Type Confirm Antibody Screen Crossmatch 12/27/18 12/27/18 12/27/18 13:58 13:59 14:28 WBC RBC Hgb Hct MCV MCH MCHC RDW Std Deviation Plt Count MPV Immature Gran % (Auto) Neut % (Auto) Lymph % (Auto) Murray % (Auto) Eos % (Auto) Baso % (Auto) Immature Gran # (Auto) Neut # (Auto) Lymph # (Auto) Murray # (Auto) Eos # (Auto) Baso # (Auto) Segmented Neutrophils Lymphocytes Monocytes PT INR PTT (Actin FS) Specimen Type ARTERIAL Sample Site R RADIAL pH 7.45 pCO2 40 pO2 83 HCO3 27.7 H Base Excess 3.5 H Oxyhemoglobin 95.2 ABG O2 Sat (Calculated) 8.9 L ABG O2 Saturation 97.9 ABG Carboxyhemoglobin 2.80 H ABG Methemoglobin 0.0 Javier Test YES A-a O2 Difference 124.0 Total Hemoglobin 6.5 L Lactate 1.10 Liter Flow 4.0 Blood Gas Modality CANNULA FiO2 % 36.0 Sodium Potassium Chloride Carbon Dioxide Anion Gap BUN Creatinine Estimated GFR/1.73 m2 BUN/Creatinine Ratio Glucose Calculated Osmolality Calcium Total Bilirubin AST ALT Alkaline Phosphatase Creatine Kinase Troponin T Sxs-F-Xakivwteebp Pept Total Protein Albumin Globulin Albumin/Globulin Ratio Plasma Lactate Stool Occult Blood POSITIVE A Blood Type A POSITIVE Blood Type Confirm Antibody Screen NEGATIVE Crossmatch See Detail 12/27/18 14:47 WBC RBC Hgb Hct MCV MCH MCHC RDW Std Deviation Plt Count MPV Immature Gran % (Auto) Neut % (Auto) Lymph % (Auto) Murray % (Auto) Eos % (Auto) Baso % (Auto) Immature Gran # (Auto) Neut # (Auto) Lymph # (Auto) Murray # (Auto) Eos # (Auto) Baso # (Auto) Segmented Neutrophils Lymphocytes Monocytes PT INR PTT (Actin FS) Specimen Type Sample Site pH pCO2 pO2 HCO3 Base Excess Oxyhemoglobin ABG O2 Sat (Calculated) ABG O2 Saturation ABG Carboxyhemoglobin ABG Methemoglobin Javier Test A-a O2 Difference Total Hemoglobin Lactate Liter Flow Blood Gas Modality FiO2 % Sodium Potassium Chloride Carbon Dioxide Anion Gap BUN Creatinine Estimated GFR/1.73 m2 BUN/Creatinine Ratio Glucose Calculated Osmolality Calcium Total Bilirubin AST ALT Alkaline Phosphatase Creatine Kinase Troponin T Bhg-K-Lsnliotsxbe Pept Total Protein Albumin Globulin Albumin/Globulin Ratio Plasma Lactate Stool Occult Blood Blood Type Blood Type Confirm A POSITIVE Antibody Screen Crossmatch Orders Category Date Time Status Cardiac Monitoring DIRECTED Care 12/27/18 13:53 Active IV Insertion ORDERED Care 12/27/18 13:53 Completed Notify MD of + Sepsis Screen NOW Care 12/27/18 13:53 Active Notify Physician As Ordered Care 12/27/18 13:53 Active Transfuse .Give-Transfuse Care 12/27/18 14:33 Active CHEST-1 VIEW [RAD] Stat Exams 12/27/18 13:53 Completed ABG [RESP] Routine Lab 12/27/18 13:59 Completed BLOOD CULTURE [BLDCUL] Stat Lab 12/27/18 13:57 Ordered BNP [PRO B-NATRIURETIC PEPTIDE] Stat Lab 12/27/18 13:54 Completed CBC WITH DIFF [HEME] Stat Lab 12/27/18 13:58 Completed CK PROFILE [SP CHEM] Stat Lab 12/27/18 13:58 Completed COMPREHENSIVE METABOLIC PANEL [CHEM] Stat Lab 12/27/18 13:58 Completed LACTATE, PLASMA [CHEM] Lab 12/27/18 13:58 Completed LACTATE, PLASMA [CHEM] Lab 12/27/18 17:00 Uncollected LACTATE, PLASMA [CHEM] Lab 12/27/18 20:00 Uncollected OCCULT BLOOD SCREEN STOOL PL Stat Lab 12/27/18 14:28 Completed PRBC [LRPC (RED CELLS)] [BBK] Stat Lab 12/27/18 13:58 Results PROTIME WITH INR [COAG] Stat Lab 12/27/18 13:58 Completed PTT [COAG] Stat Lab 12/27/18 13:58 Completed TROPONIN T Stat Lab 12/27/18 13:58 Completed TYPE & SCREEN [BBK] Stat Lab 12/27/18 13:58 Results URINALYSIS W/POSS RFLX CULT [URINALYSIS] Stat Lab 12/27/18 13:53 Uncollected Albuterol 2.5MG/Ipratrop 0.5MG [Duoneb (A & A)] Med 12/27/18 13:54 Discontinue d 3 ml INH NOW ONE Methylprednisolone Sod Succ [Solu-Medrol] Med 12/27/18 13:53 Discontinued 125 mg IV NOW ONE Aerosol Treatments Routine Oth 12/27/18 13:54 Active Aerosol Treatments Stat Oth 12/27/18 13:54 Active Oxygen Device Stat Oth 12/27/18 13:53 Active EKG [EKG] Stat Ther 12/27/18 13:54 Ordered Result Diagrams: 12/27/18 13:58 12/27/18 13:58 - EKG 1 Time of EKG reading by physician:: 13:55 EKG Read and Signed by:: Zachery Peterson EKG Interpretation (*Must complete 3 of following elements*): Abnormal Rate: 99 Rhythm: NSR [place]: left QRS: RBB MD Interval: normal ST Wave: normal - XRAY 1 XRAY Study: Chest Impression: Abnormal ( FINDINGS: The lungs are hyperexpanded. There is scarring in the upper right lung. The heart is not enlarged. The vessels are not distended. There are no infiltrates. No effusion identified. IMPRESSION: Emphysema Electronically signed by Domenico Ayoub 12/27/2018 2:23 PM) - CONSULTS/PCP/HOSPITALIST Notification #1 *Consult/PCP/Hospitalist*: Dr. Daugherty Time Discussed: 14:53 Reason/Comments: GI Bleed Consult Disposition: Admit #2 Consult: Dr. Cisneros Time Discussed: 15:17 Reason/Comments: GI Bleed Consult Disposition: Admit (to Dr. Wang at [facility]) Departure - Departure Date of Disposition Decision: 12/27/18 Time of Disposition Decision: 14:32 DIAGNOSIS: Tobacco abuse disorder GI bleed Qualifiers: GI bleed type/associated pathology: unspecified gastrointestinal hemorrhage t ype Qualified Code(s): K92.2 - Gastrointestinal hemorrhage, unspecified Disposition: ADMITTED INPATIENT 09 Certified Medical Emergency: Emergent Condition: Serious Referrals and Follow-Ups: None,PCP [Primary Care Provider] - Discharge Education: Steps to Quit Smoking, Fyid-bu-Liwn - Critical Care Note This patient required my direct & personal management of CC.: No Attestation - Physician/ PATTIE Attestation Patient care was provided by Advanced Practice Provider:: No The physician spent face to face time with patient:: Yes Advanced Practice Provider documentation review:: Supervising physician onsite and consulted in the evaluation and care of this patient. The physician did have a face to face encounter with the patient. This chart was documented by the indicated scribe, (Tasha Gamboa Scribe) and accurately reflects the services I performed and decisions made by me, Zachery Peterson MD, as attested by the provider's signature.
[2018-12-27 14:32] LABS: PTT 31.9 Seconds (22.3-41.8)
[2018-12-27 14:41] LABS: AGAP 12; ALBUMIN 3.7 g/dL (3.5-5.0); ALKALINE PHOSPHATASE 70 U/L (32-122); BUN 17 mg/dL (8-22); CALCIUM 8.8 mg/dL (8.8-10.2); CHLORIDE 98 mmol/L (98-107); CK PROFILE 78 U/L (24-204); COSMO 276; CREATININE 0.6 mg/dL (0.7-1.2); ESTIMATED GFR > 60; GLUCOSE 184 mg/dL (70-104); GOT 12 U/L (10-34); GPT 11 U/L (10-44); SODIUM 135 mmol/L (136-145); TCO2 26 mmol/L (25-35); TOTAL BILIRUBIN < 0.15 mg/dL (0.20-1.00); TOTAL PROTEIN 6.8 g/dL (6.3-8.3)
[2018-12-27 15:09] LABS: LYMPHS 20 % (21-51); MONO 12 % (1-9); SEGS 68 % (42-75)
[2018-12-27] MEDS ORDERED: NS 1,000 ML ONE (15:37)
[2018-12-27] MEDS ORDERED: NS 1,000 ML IV ONE ×2 (15:42→16:34)
[2018-12-27] MEDS ORDERED: TYLENOL PO PRN (16:08)
[2018-12-27] MEDS ORDERED: DUONEB (A & A) INH PRN (16:08)
--- NOTE | 2018-12-27 16:20 | EKG Report ---
Test Performed on : 12/27/2018 1:55:51 PM Test Reason : pain Blood Pressure : / mmHG Vent. Rate : 099 BPM Atrial Rate : 099 BPM P-R Int : 182 ms QRS Dur : 134 ms QT Int : 394 ms P-R-T Axes : 060 -84 052 degrees QTc Int : 505 ms Normal sinus rhythm. Left axis deviation Right bundle branch block Abnormal ECG When compared with ECG of 16-OCT-2018 18:03, Nonspecific T wave abnormality has replaced inverted T waves in Anterior leads Unconfirmed Result
[2018-12-27] MEDS: HUMALOG SUBQ SCH ×2 (17:41→21:45)
[2018-12-27] MEDS: PROTONIX IV SCH (17:45)
[2018-12-27] MEDS: SODIUM CHLORIDE 0.9% INJ SCH (17:45)
[2018-12-27] MEDS: SOLU-MEDROL IV SCH (17:45)
[2018-12-27] MEDS: LEVAQUIN 500 MG/D5W 500 MG/100 ML IVPB IV SCH (17:46)
--- NOTE | 2018-12-27 18:40 | HISTORY AND PHYSICAL ---
PRIMARY CARE PROVIDER: Dr. Tali Hartmann. GAS PUMPING STATION OPERATOR: Dr. Moses. CUSTOMER EXPERIENCE STRATEGIST: Dr. Vicente. CHIEF COMPLAINT: Shortness of breath. HISTORY OF PRESENT ILLNESS: Mr. Loving is a 63-year-old male who carries a past medical history of atrial fibrillation, recently put on Eliquis, congestive heart failure, hypertension, COPD on home O2 at 3 to 3.5 L, diabetes mellitus. He presented to [facility] with complaints of worsening shortness of breath x1 week. He states he saw Dr. Moses's nurse practitioner last week and was started on Daliresp. He felt he had an allergic reaction to it. He became more short of breath, dizziness, and developed some lower extremity edema. He states that he did happen to notice that he has had dark stools x1 week that he thought was due to a side effect of the Daliresp. Today at his home he got to where he could not catch his breath. He called EMS. Per his report, his oxygen saturation when they checked it was 69%. He was brought to the ER. Workup revealed a hemoglobin and hematocrit of 5.6 and 17.9, heme-positive stools, and a proBNP of 247. He was initiated on treatment for COPD exacerbation. The patient's lung sounds are extremely tight. He is not moving much air. He is also getting 2 units of blood and will be transferred to [facility], to the ICU secondary to his respiratory failure and his GI bleeding, with consult for Cardiology, Pulmonology, and Gastroenterology. He denied any headache, fever, chills, chest pain, nausea, vomiting, diarrhea, dysuria. PAST MEDICAL HISTORY: 1. Atrial fibrillation. 2. Hypertension. 3. COPD. 4. Diabetes mellitus. 5. Congestive heart failure. PAST SURGICAL HISTORY: 1. Hernia repair. 2. Appendectomy. 3. Recent heart catheterization. FAMILY HISTORY: Hypertension. SOCIAL HISTORY: He currently lives alone. He smokes 3 to 4 cigars per day. No alcohol or illicit drug use. ALLERGIES: Pneumococcal vaccination. I guess we can add Daliresp causing dizziness. HOME MEDICATIONS: Have not been verified. However, he was recently started on Eliquis. PHYSICAL EXAMINATION: VITAL SIGNS: Temperature is 98.1 degrees, heart rate 99, respirations 21, blood pressure 145/61, O2 is 99% on 4 L nasal cannula. GENERAL: Mr. Loving is a 63-year-old male who is sitting up on the stretcher in the tripod position. He is noticeably short of breath but in no acute distress. He is able to talk in full sentences. HEENT: Atraumatic, normocephalic. PERRL. NECK: Supple. Trachea midline. CARDIOVASCULAR: S1, S2 appreciated. No murmurs, gallops, or rubs noted. Irregular rate and rhythm. Bilateral lower extremity 1+ pitting edema. No noticeable JVD. PULMONARY: Lung sounds tight. He is not moving much air throughout all lung dorado. I did not appreciate any wheezes. However, he was wheezing on admission. He has been given albuterol treatments and started on steroids. ABDOMEN: Soft, nontender, nondistended. Positive bowel sounds 4 quadrants. NEUROLOGIC: No focal deficits noted. DIAGNOSTIC DATA: Chest x-ray: Emphysema. LABORATORY DATA: White count 9, hemoglobin and hematocrit 5.6 and 17.9, platelet count is 409,000. PT 14, INR 1.04. ABG, pH 7.45, pCO2 40, PO2 83, bicarb 27, base excess 3.5, O2 saturation 97% on 4 L nasal cannula. Sodium 135, potassium 4.0, BUN 17, creatinine 0.6, blood glucose is 184. Troponin less than 0.010. ProBNP 247. Stool occult blood positive. ASSESSMENT AND PLAN: 1. Gastrointestinal bleed, believed to be secondary to p.o. Eliquis. We will make him NPO for now. Will consult GI. Transfuse him with 2 units of blood. Recheck his hemoglobin and hematocrit after the 2nd unit. Admit him to the ICU at [facility]. We will do Protonix b.i.d. for the first 24 hours and then transitioned to p.o. as able. 2. Chronic obstructive pulmonary disease exacerbation. We will start IV antibiotics, bronchodilators, IV steroids, aggressive pulmonary toilet. Continue supplemental O2. Consult Dr. Moses. 3. Atrial fibrillation, recently put on Eliquis. We will consult Cardiology. Await their recommendations given that the patient has now had a GI bleed and new lower extremity edema. 4. Diabetes mellitus. Will place him on pattern blood sugars and sliding scale. 5. Hypertension. Continue home medications when reconciled. 6. Acute respiratory failure secondary to being hypoxemic with O2 saturations of 69%. He was on 7 L nasal cannula on arrival to the ED. He has now been weaned down to 4 L after treatment. Again, we have consulted Dr. Moses with Pulmonology. 7. Further recommendations to follow physician evaluation, laboratory and diagnostic data. Dictated by AMAN Wheatley for Gary Cisneros MD cc: MD Tali Beebe MD Ashish K. Basu, MD Mamoun I. Najjar, MD Michael Kelso, MD MTDD
[2018-12-27] MEDS: DUONEB (A & A) INH SCH ×2 (19:25→23:30)
[2018-12-27] MEDS ORDERED: BLISTEX MEDICATED BERRY LIP BALM TOP PRN (19:45)
[2018-12-27] MEDS ORDERED: BENADRYL IV ONE (19:54)
--- NOTE | 2018-12-27 22:42 | HISTORY AND PHYSICAL ---
ADDENDUM: Patient seen and examined by myself. Full note dictated and discussed with nurse practitioner. Patient presented to the hospital with shortness of breath and subsequently diagnosed with anemia. The patient notes he has been having some bleeding in his emesis. Hemoglobin and hematocrit are low at 7 and 15. Therefore, we will type, cross, have given 2 units we will transfer him to [facility] for GI evaluation. He has a known history of atrial fibrillation, recently placed on Eliquis. Certainly, we will hold this for the time being. Please see full orders. cc: Gary Cisneros MD
[2018-12-28] MEDS: SOLU-MEDROL IV SCH ×3 (00:19→15:41)
[2018-12-28 00:48] LABS: HEMATOCRIT 20.6 % (42.0-52.0); HEMOGLOBIN 6.7 g/dL (14.0-18.0)
[2018-12-28] MEDS: DUONEB (A & A) INH SCH ×6 (03:27→23:45)
[2018-12-28 03:52] LABS: URINE SOURCE CLEAN CATCH
[2018-12-28 03:54] LABS: BILIRUBIN URINE NEGATIVE (NEGATIVE); BLOOD URINE NEGATIVE (NEGATIVE); COLOR YELLOW; GLUCOSE URINE 500 mg/dL (NEGATIVE); KETONE URINE TRACE mg/dL (NEGATIVE); LEUKOCYTES URINE NEGATIVE (NEGATIVE); NITRITE URINE NEGATIVE (NEGATIVE); PH URINE 5.5; PROTEIN URINE TRACE mg/dL (NEGATIVE); TURBIDITY URINE CLEAR (CLEAR); UROBILINOGEN URINE NORMAL (NORMAL)
[2018-12-28 03:56] LABS: UR EPITHELIAL CELLS <10 /HPF (<10); URINE BACTERIA NEGATIVE /HPF; URINE RBC <10 /HPF (<10); URINE WBC <10 /HPF (<10)
[2018-12-28 04:39] LABS: ALLEN TEST YES; BE 1.2 mmoll (-3.0-3.0); BLOOD TYPE ARTERIAL; HCO3-(ACT) 25.8 mmoll (20.0-26.0); METHB 0.8 % (0.0-1.5); O2(CT) 15.7 mL/dL (15.0-23.0); O2HB 94.6 % (95.0-99.0); PCO2(98.6) 41 mmHg (35-45); PO2(98.6) 104 mmHg (60-100); SAMPLE BLOOD; SAO2 96.9 % (95.0-100.0); THB 11.7 g/dL (11.5-17.4); pH(98.6) 7.41 (7.35-7.45)
[2018-12-28 04:43] LABS: MODALITY BI PAP
[2018-12-28] MEDS: PROTONIX IV SCH ×2 (06:31→15:42)
[2018-12-28] MEDS: HUMALOG SUBQ SCH ×4 (06:31→21:17)
[2018-12-28] MEDS: SODIUM CHLORIDE 0.9% INJ SCH ×2 (06:31→15:42)
[2018-12-28] MEDS ORDERED: DUONEB (A & A) INH ONE (08:11)
--- NOTE | 2018-12-28 08:17 | Diag Imaging Result Doc PS360 ---
EXAM: CHEST-PORTABLE 12/28/2018 HISTORY: short of breath TECHNIQUE: AP portable at 0454 COMMENT: There is ill-defined opacity obscuring the left hemidiaphragm. This was not the case on 12/27/2018. The heart size and pulmonary vascularity are stable in appearance. IMPRESSION: Atelectasis versus pneumonia left lower lobe. Electronically signed by Marquis Banerjee 12/28/2018 8:15 AM
[2018-12-28] MEDS ORDERED: PRECEDEX ONE (08:20)
[2018-12-28] MEDS ORDERED: VERSED ONE (08:20)
[2018-12-28] MEDS ORDERED: DIPRIVAN 1% ONE (08:28)
[2018-12-28] MEDS ORDERED: ROBINUL ONE (08:29)
[2018-12-28] MEDS ORDERED: XYLOCAINE-MPF 2% ONE (08:29)
[2018-12-28] MEDS ORDERED: QUELICIN (DOSE) ONE (08:29)
--- NOTE | 2018-12-28 09:06 | GASTROENTEROLOGY CONSULTATION ---
DATE: 12/28/2018 REASON FOR CONSULTATION: Symptomatic anemia, melena. PRIMARY ORDNANCE EQUIPMENT WORKER: Dr. Coates. MANAGED CARE LIAISON: Dr. Moses. ACID REMOVER: Dr. Vicente. HISTORY OF PRESENT ILLNESS: Mr. Everett Loving is a 63-year-old gentleman with past medical history of atrial fibrillation, recently started on Eliquis, hypertension, hyperlipidemia, noninsulin dependent diabetes, COPD on 3 to 3.5 L of home oxygen, history of diverticulitis and congestive heart failure, who presented to [facility] yesterday with 1 to 2 weeks of progressive shortness of breath. He says he was seen by Dr. Moses recently, who noted the patient had some increased wheezing on exam and was given an antibiotic and steroids with minimal improvement. He does complain of some associated dizziness and chest pain, none currently. No nausea or vomiting. He has noticed some GERD over the last week. He does not take any NSAIDs. He is not on aspirin. No bright red blood per rectum. No unexplained weight loss. His last colonoscopy was done by Dr. Coates about 6 months ago, which was unrevealing. He has never had an EGD in the past. PAST MEDICAL HISTORY: As per HPI. The patient does state that he had a cardiac catheterization in the past that showed nonobstructive CAD. PAST SURGICAL HISTORY: Hernia repair, appendectomy. FAMILY HISTORY: No family history of GI malignancies. SOCIAL HISTORY: The patient has a longstanding smoking history. He currently smokes several cigars daily. No alcohol or drug use. ALLERGIES: Pneumovax. MEDICATIONS: Eliquis, doxycycline, metformin, pravastatin, lisinopril hydrochlorothiazide combination, glipizide, amiodarone. REVIEW OF SYSTEMS: As per HPI, otherwise a 12 point review of systems is negative. PHYSICAL EXAMINATION: Vital Signs: Temperature 98.6 degrees, heart rate was up to 118 on admission, blood pressure is currently 110/67, heart rate 68, respiratory rate 24, O2 saturation is 100% on 30% FiO2. General: The patient is awake, alert, oriented, in no acute distress. HEENT: Sclerae anicteric. Moist mucous membranes. No lymphadenopathy or JVD. Pulmonary: End expiratory wheezing, otherwise clear. Cardiac: Regular rate and rhythm. No murmurs. Abdomen: Obese, soft, nontender, nondistended. Normoactive bowel sounds. No rebound or guarding. Extremities: No clubbing, cyanosis, or edema. Neurologic: Nonfocal. LABORATORY DATA: On presentation, white count was 9.1, hemoglobin was 5.6. He was transfused 3 units. His most recent hemoglobin is 6.7. He does not have a post transfusion hemoglobin from his last unit. Platelets of 409,000. INR of 1.04. ABG, pH is 7.4, pCO2 41, PO2 104. Sodium 135, potassium 4.0, chloride 98, bicarb 26, BUN 17, creatinine 0.6, glucose 184. LFTs are unremarkable. Troponin negative. ProBNP 247. UA shows glucosuria, otherwise negative. IMAGING: Chest x-ray shows emphysema. No acute findings. ASSESSMENT AND PLAN: 1. Mr. Everett Driscoll is a 63-year-old gentleman with past medical history notable for chronic obstructive pulmonary disease on home oxygen, congestive heart failure, nonobstructive coronary artery disease, atrial fibrillation, recently started on Eliquis, who presents with acute blood loss anemia, found to have a hemoglobin of 5.6, transfused 3 units overnight. He is clinically stable currently. We are holding his Eliquis. We will plan for diagnostic EGD today to rule out peptic ulcer disease, angiodysplasia, esophagitis, duodenitis. He is on a PPI IV b.i.d. He also has received fluid resuscitation. 2. Chronic obstructive pulmonary disease exacerbation. Patient is on steroids and Levaquin as well as inhalers. 3. Diabetes. Patient is on sliding scale insulin. 4. Hypertension. We are holding his home blood pressure medications. He is normotensive currently. 5. History of diverticulitis. The patient denies bright red blood per rectum. He is up-to-date with colonoscopy. 6. Gastroesophageal reflux disease. He is on proton pump inhibitor. 7. Congestive heart failure. He appears to be euvolemic currently. Does not appear to be in congestive heart failure exacerbation. He is n.p.o. for EGD today. Thank you for the consult. We will follow with you. Please call with any questions or concerns.
--- NOTE | 2018-12-28 09:29 | OPERATIVE NOTE ---
PROCEDURE DATE: 12/28/2018 EGD: PROVIDER: Mik Daugherty MD INDICATIONS: Gastrointestinal bleed, melena, anemia. MEDICATIONS: Monitored anesthesia care. DETAILS OF OPERATION: Prior to procedure, history and physical was performed. The patient medications and allergies were reviewed. The patient's tolerance to previous anesthesia was also reviewed. The risks and benefits of the procedure and the sedation options and risks were discussed with the patient. All questions were answered. Informed consent was obtained. After reviewing the risks and benefits, the patient was deemed in satisfactory condition to undergo the procedure. The endoscope was passed under direct visualization throughout the procedure, the patient's blood pressure, pulse and oxygen saturation were monitored continuously. The endoscope was inserted into the mouth and advanced to the second part of the duodenum. The upper GI endoscopy was accomplished without difficulty. The patient tolerated the procedure well. COMPLICATIONS: No immediate complications. ESTIMATED BLOOD LOSS: None. FINDINGS: Normal upper endoscopy. IMPRESSION: Normal upper endoscopy. No upper gastrointestinal source of bleeding found. RECOMMENDATIONS: Start clear liquid diet. Prep with 4 L of GoLYTELY starting at 6 p.m. today. Nothing per oral after midnight for diagnostic colonoscopy tomorrow with Dr. Salgado. Continue to trend hemoglobin and hematocrit every 6 to 8 hours. Transfuse as needed to maintain hemoglobin between 7 and 8, holding Eliquis. We will follow with you. Please call with any questions or concerns.
[2018-12-28 10:20] LABS: RBC 2.49 XMIL (4.7-6.1); WBC 4.19 X1000 (4.8-10.8)
[2018-12-28 10:21] LABS: BASO# 0.01 X1000 (0.0-0.2); BASO% 0.2 % (0.0-0.8); HEMATOCRIT 24.5 % (42.0-52.0); HEMOGLOBIN 7.9 g/dL (14.0-18.0); IMM GRAN# 0.05 X1000 (0.0-0.04); IMM GRAN% 1.2 % (0.0-0.5); LYMPH% 11.9 % (20.5-51.1); MCH 31.7 PG (27-31); MCHC 32.2 g/dL (33-37); MCV 98.4 FL (81-99); MONO# 0.32 X1000 (0.11-0.59); MONO% 7.6 % (1.7-9.3); MPV 9.1 FL (7.4-10.4); NEUT# 3.31 X1000 (1.4-6.5); NEUT% 79.1 % (42.2-75.2); PLT 285 X1000 (130-400); RDW 18.7 % (11.5-14.5)
[2018-12-28 10:57] LABS: AGAP 10; ALB/GLOB RATIO 0.8; ALBUMIN 2.9 g/dL (3.5-5.0); ALKALINE PHOSPHATASE 58 U/L (32-122); BUN 12 mg/dL (8-22); CHLORIDE 100 mmol/L (98-107); COSMO 273; CREATININE 0.5 mg/dL (0.7-1.2); ESTIMATED GFR > 60; GLUCOSE 164 mg/dL (70-104); GOT 16 U/L (10-34); GPT 11 U/L (10-44); POTASSIUM 4.5 mmol/L (3.5-5.1); SODIUM 135 mmol/L (136-145); TCO2 25 mmol/L (25-35); TOTAL BILIRUBIN 0.39 mg/dL (0.20-1.00); TOTAL PROTEIN 6.6 g/dL (6.3-8.3)
[2018-12-28] MEDS ORDERED: AMBIEN PO PRN (12:07)
[2018-12-28] MEDS ORDERED: VENTOLIN HFA INH PRN (12:07)
--- NOTE | 2018-12-28 12:41 | PROGRESS NOTE ---
DATE: 12/28/2018 SUBJECTIVE: This morning, Mr. Loving refers to be feeling a lot better. He already had an EGD which apparently was unremarkable. He gave a history of about a week or a little bit more of melenic stool. He felt extremely weak with shortness of breath yesterday. Went to [place] where he was evaluated and found to have a hemoglobin level of 5.6. He has been given a total of 3 PRBC transfusion. He feels a lot better and his hemoglobin has gone up to 7.9 this morning. OBJECTIVE: Vital Signs: Blood pressure is 123/59, pulse is 72, respirations are 20, temperature is 98.8 degrees. General Examination: Mr. Loving is a 63-year-old, male. He is in bed. No distress. HEENT: Mucosa is pink and moist. Anicteric. Acyanotic. Neck: Supple. Chest: Air entry is bilaterally reduced. There is still some distant end- expiratory wheezing bilaterally and there is a prolonged expiratory phase of respiration. Cardiovascular: Regular rate and rhythm. No murmurs. Abdomen: Soft and nontender. Extremities: No pedal edema. NET C DEVELOPER: The patient is awake, alert, and oriented. Laboratory Data: WBC is 4.19, hemoglobin is 7.9, platelet count of 285,000. Chemistry is also reviewed and is completely normal. Glucose is 164. Current Medications: Have all been reviewed. ASSESSMENT: 1. Symptomatic anemia. Patient is status post 2 units of packed red blood cell transfusion. Hemoglobin and hematocrit have significantly improved. 2. Gastrointestinal bleed, believed to be secondary to Eliquis. The patient had an esophagogastroduodenoscopy this morning which was completely negative. We are pending a colonoscopy tomorrow. Gastroenterology is on board. 3. History of emphysema/chronic obstructive pulmonary disease in exacerbation on presentation. The patient continues to be still bronchospastic but he is feeling better. We are going to continue with the bronchodilation therapy, steroids, and antibiotics. Pulmonary medicine has been consulted. 4. History of atrial fibrillation, currently rate controlled. We will continue with his home medication including amiodarone. Anticoagulation has been withheld because of gastrointestinal bleed. 5. Diabetes mellitus, controlled. 6. Hypertension, controlled. 7. Acute on chronic hypoxemic respiratory failure. The patient is on home oxygen. Presenting oxygen saturation was about 69%. It is currently normalized. PLAN: In general, I think Mr. Loving is doing well. We are going to continue with the oxygen therapy. Continue with the antibiotics, bronchodilation, and steroids. He is pending. Pulmonary medicine consult. Mr. Loving had an EGD this morning which was unremarkable and there is a plan for a colonoscopy tomorrow. He got 3 units of PRBC transfusion. His hemoglobin and hematocrit are much better now, and patient feels a lot better too. cc: Wilder Vidal MD [facility]
[2018-12-28] MEDS: LEVAQUIN 500 MG/D5W 500 MG/100 ML IVPB IV SCH (15:42)
[2018-12-28 16:21] LABS: HEMATOCRIT 25.7 % (42.0-52.0); HEMOGLOBIN 8.2 g/dL (14.0-18.0)
[2018-12-28] MEDS ORDERED: GOLYTELY PO ONE (18:00)
--- NOTE | 2018-12-28 18:59 | CONSULTATION ---
DATE OF CONSULTATION: 12/28/2018 REQUESTING PROVIDER: AMAN Wheatley. REASON FOR CONSULTATION: Shortness of breath. HISTORY OF PRESENT ILLNESS: This is a 63-year-old male with a medical history of chronic hypoxemic respiratory failure secondary to end-stage COPD with ongoing tobacco abuse, obstructive sleep apnea, atrial fibrillation, congestive heart failure, abdominal aortic aneurysm, unstable angina, hypertension, hyperlipidemia, diabetes mellitus type 2, and diverticulitis. He has been seen in our office for over 2 years for end-stage COPD and moderate obstructive sleep apnea. He presented to the ER yesterday afternoon with worsening shortness of breath and cough for 1 week. Initial workup in the ER revealed severe anemia secondary to GI bleeding, acute on chronic hypoxemic respiratory failure, and COPD exacerbation. He has been admitted to the ICU for further evaluation and management. His last admission to our facility was from 10/14/2018 to 10/17/2018, for atrial fibrillation with rapid ventricular response. The patient currently is sitting in bed comfortably with no acute distress noted. He is on a nasal cannula at 4 L. He states he is feeling better. He underwent EGD per Dr. Daugherty at an earlier time, and there was no upper GI bleeding source identified. He reports black stool for about 1 month since he was on Eliquis per Dr. Vicente. He also reports intermittent pedal edema, chronic cough with thick creamy sputum at times, worsening shortness of breath, and progressive weakness. He reports no fever, chills, chest pain, palpitations, abdominal pain, diarrhea, nausea, or vomiting. PAST MEDICAL AND SURGICAL HISTORY: 1. Chronic hypoxemic respiratory failure, secondary to end-stage COPD, on continuous home oxygen at 3.5 L. 2. End-stage COPD with ongoing tobacco abuse, on Daliresp, Trelegy, DuoNeb, and Ventolin. PFT on 03/29/2018 revealed FEV1 23% of predicted. 3. Ongoing tobacco abuse. The patient reports he has not been smoking for 1.5 weeks recently because of the severity of his illness. 4. Obstructive sleep apnea, moderate, on CPAP at home. 5. Atrial fibrillation. 6. Congestive heart failure. 7. Abdominal aortic aneurysm. 8. Unstable angina, status post recent left heart catheterization at [facility] on 10/17/2018. 9. Hypertension. 10. Hyperlipidemia. 11. Diabetes mellitus type 2. 12. Diverticulitis. 13. Hernia repair. 14. Appendectomy on 08/02/2012. SOCIAL HISTORY: The patient lives alone. He started smoking at 17 years old. 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 He smokes 3 to 4 cigars per day recently. Currently, he has not smoked for up to 1.5 weeks. He has no history of alcohol or illicit drug use. FAMILY HISTORY: Positive for hypertension, diabetes, and lung cancer. ALLERGIES: Pneumococcal vaccine, roflumilast. REVIEW OF SYSTEMS: A 10 point review of systems was conducted and the pertinent is listed within the HPI, otherwise noncontributory. PHYSICAL EXAMINATION: Vital Signs: Temperature 97.1 degrees, blood pressure 127/54, pulse 85, respiratory rate 21, oxygen saturation 97% on nasal cannula at 4 L. General: Chronically ill appearing, in no acute distress, very pleasant and cooperative. He has a barrel chest with increased AP diameter. HEENT: Atraumatic. Trachea midline. Mucosa pink and moist. Respiratory: Even and unlabored. Symmetrical excursion. Auscultation reveals diminished breathing sounds bilaterally with prolonged expiratory phase and rhonchi, which is worse on the right side. Cardiovascular: Regular rate and rhythm. Gastrointestinal: Bowel sounds normoactive in all 4 quadrants. Soft, nontender, mildly distended. Extremities: Trace pedal edema. No clubbing, no cyanosis. Neurologic: Alert and oriented x3. Speech fluent and follow commands. LAB DATA: White blood cells 4.19, hemoglobin 8.2, hematocrit 25.7, platelet 285,000. Sodium 135, potassium 4.5, chloride 100, carbon dioxide 25, BUN 12, creatinine 0.5, glucose 164, albumin 2.9. ABGs: PH 7.41, pCO2 41, pO2 104, HC03 25.8, base excess 1.2, oxyhemoglobin 94.6, on BiPAP with pressure 12/4 and FiO2 30%. IMAGING DATA: Chest x-ray revealed ill-defined opacity obscuring the left hemidiaphragm. ASSESSMENT: This is a 63-year-old, male with a medical history of chronic hypoxemic respiratory failure secondary to end-stage chronic obstructive pulmonary disease, with ongoing tobacco abuse, obstructive sleep apnea, atrial fibrillation, congestive heart failure, abdominal aortic aneurysm, unstable angina, angina, hypertension, hyperlipidemia, diabetes mellitus type 2, and diverticulitis. He has been admitted to the ICU with symptomatic anemia, secondary to gastrointestinal bleeding, and chronic obstructive pulmonary disease exacerbation with acute on chronic hypoxemic respiratory failure. 1. Acute on chronic hypoxemic respiratory failure. 2. End-stage chronic obstructive pulmonary disease with exacerbation. 3. Ongoing tobacco abuse. 4. Symptomatic anemia secondary to gastrointestinal bleeding. 5. Obstructive sleep apnea. PLAN: 1. Continue supplemental oxygen. 2. Continue BiPAP at bedtime and as needed. 3. Continue antibiotics, steroid, and bronchodilators. 4. Chest x-ray and arterial blood gases if indicated. 5. Follow up with CBC, CMP, sputum culture, and blood culture. 6. Highly recommend patient to quit smoking. 7. Dr. Daugherty is on board. 8. Continue gastrointestinal and deep venous thrombosis prophylaxis. 9. Further recommendations pending hospital course. Thank you for the courtesy of this consult. Dictated by AMAN Young for Audrey Moses MD cc: AMAN Young MD [facility]
[2018-12-28] MEDS: PRAVACHOL PO SCH (21:16)
[2018-12-28 22:18] LABS: HEMATOCRIT 25.1 % (42.0-52.0); HEMOGLOBIN 8.2 g/dL (14.0-18.0)
[2018-12-29] MEDS: SOLU-MEDROL IV SCH ×5 (00:44→23:08)
[2018-12-29] MEDS: DUONEB (A & A) INH SCH ×6 (03:45→23:35)
[2018-12-29] MEDS: PROTONIX IV SCH ×2 (04:50→17:23)
[2018-12-29] MEDS: HUMALOG SUBQ SCH ×4 (06:24→22:26)
[2018-12-29 08:14] LABS: BASO# 0.01 X1000 (0.0-0.2); BASO% 0.2 % (0.0-0.8); EOS# 0.02 X1000 (0.0-0.7); EOS% 0.3 % (0.0-10.0); HEMATOCRIT 24.9 % (42.0-52.0); IMM GRAN# 0.05 X1000 (0.0-0.04); IMM GRAN% 0.8 % (0.0-0.5); LYMPH% 7.8 % (20.5-51.1); MCH 31.6 PG (27-31); MCHC 32.1 g/dL (33-37); MCV 98.4 FL (81-99); MONO# 0.59 X1000 (0.11-0.59); MONO% 9.3 % (1.7-9.3); MPV 9.2 FL (7.4-10.4); NEUT% 81.6 % (42.2-75.2); PLT 341 X1000 (130-400); RBC 2.53 XMIL (4.7-6.1); RDW 18.3 % (11.5-14.5); WBC 6.37 X1000 (4.8-10.8)
[2018-12-29 08:46] LABS: AGAP 11; ALB/GLOB RATIO 0.9; ALBUMIN 3.2 g/dL (3.5-5.0); ALKALINE PHOSPHATASE 58 U/L (32-122); BUN 17 mg/dL (8-22); CALCIUM 8.6 mg/dL (8.8-10.2); CHLORIDE 99 mmol/L (98-107); COSMO 281; CREATININE 0.6 mg/dL (0.7-1.2); ESTIMATED GFR > 60; GLUCOSE 197 mg/dL (70-104); GOT 9 U/L (10-34); GPT 10 U/L (10-44); POTASSIUM 3.3 mmol/L (3.5-5.1); SODIUM 137 mmol/L (136-145); TCO2 27 mmol/L (25-35); TOTAL BILIRUBIN 0.29 mg/dL (0.20-1.00); TOTAL PROTEIN 6.7 g/dL (6.3-8.3)
[2018-12-29 10:07] LABS: HEMATOCRIT 25.6 % (42.0-52.0); HEMOGLOBIN 8.3 g/dL (14.0-18.0)
[2018-12-29] MEDS ORDERED: DIPRIVAN 1% ONE (11:15)
[2018-12-29] MEDS ORDERED: XYLOCAINE-MPF 2% ONE (11:15)
--- NOTE | 2018-12-29 11:58 | PROGRESS NOTE ---
DATE: 12/29/2018 SUBJECTIVE: This morning, Mr. Loving to be doing fairly okay. He said his wheezing has significantly improved. Mr. Loving is waiting for a colonoscopy today. He denies any active melena stool or any bleed. OBJECTIVELY: Current vital signs: Blood pressure is 107/47, pulse of 81, respirations 18, temperature is 98 degrees. Patient is saturating 100% on nasal cannula. General: Mr. Loving is a 63-year-old, gentleman. He is in bed. He was not in any cardiopulmonary distress. HEENT: Mucosa is pink and moist. Anicteric. Acyanotic. Neck: Supple. Chest: Good air entry bilaterally. There is still some faint wheezing posteriorly, but this is a whole lot better than yesterday. Cardiovascular: Regular rate and rhythm. There are no murmurs, no rubs, no gallops. Gastrointestinal: Abdomen is soft, nontender. Bowel sounds present. Extremities: No pedal edema. Distal pulses are present. Central nervous system: Patient is awake, alert, and oriented. There is no focal neurological deficit. LABORATORY DATA: Hemoglobin is 8.0 early this morning, a repeat is 8.3. Chemistry is also reviewed, potassium is 3.2, but the rest of chemistry is normal. So far, blood cultures have been 48 hours negative. CURRENT MEDICATIONS: Have all been reviewed. No changes. ASSESSMENT: 1. Symptomatic anemia on presentation. Patient is status post 2 post packed red blood cells transfusion. Hemoglobin and hematocrit is significantly improved. 2. Gastrointestinal bleed, likely due to Eliquis anticoagulation. EGD yesterday was completely normal. The patient is pending a colonoscopy today. 3. Chronic obstructive pulmonary disease, in mild exacerbation on presentation. We are going to continue with the bronchodilation therapy, steroids and antibiotics. Pulmonary Medicine is on board. 4. History of atrial fibrillation, currently rate controlled. We will continue with the patient's on amiodarone. Anticoagulation has been withheld because of gastrointestinal bleed. 5. Diabetes mellitus, controlled. 6. Hypertension, controlled. 7. Acute on chronic hypoxemic respiratory failure. The patient is currently on 4 to 6 L of nasal cannula and seems to be saturating very well. We are going to be titrating this down for a saturation of about 92%. cc: Wilder Vidal MD
[2018-12-29] MEDS: CORDARONE PO SCH (12:56)
--- NOTE | 2018-12-29 16:11 | OPERATIVE NOTE ---
PROCEDURE DATE: 12/29/2018 REQUESTING PHYSICIAN: Dr. Vidal. PROCEDURE: Colonoscopy. PREOPERATIVE DIAGNOSES: 1. Gastrointestinal bleed. 2. Anemia. 3. Melena. 4. Required 3 units of blood transfusion. 5. EGD done yesterday by Dr. Daugherty was negative. POSTOPERATIVE DIAGNOSES: 1. Stool in the left colon. 2. Diverticulosis in the descending and sigmoid colon to moderate degree. 3. Evidence of internal hemorrhoids grade 2. 4. No evidence of any active bleeding. There was no blood in the colon. No evidence of any colitis. ESTIMATED BLOOD LOSS: None. COMPLICATIONS: None. ANESTHESIA: Monitored anesthesia care. DESCRIPTION OF PROCEDURE: After informed consent, the patient explained the risks, benefits, indications, and alternatives to the procedure, the patient was prepared for colonoscopy. The patient was brought to the OR. He was turned in a left lateral position. Rectal exam was performed, which revealed normal rectal tone. No masses were felt. No blood on the examining finger. The colonoscope was introduced through the anal verge all the way to the cecum. Cecum was identified using landmarks like IC valve and appendiceal orifice. The bowel prep was fair. There was stool in the colon that was lavaged. There was no evidence of underlying colitis. I did not visualize any evidence of AVMs. We did not find any evidence of any major polyps. We did not see any evidence of AVM's. All of the lesions less than 5 mm could be missed because of fair prep. There was evidence of diverticulosis in the descending sigmoid colon to moderate degree. There was evidence of internal hemorrhoids grade 2 in the rectum and anal area on retroflexion. The air was slowly withdrawn. The patient tolerated the procedure well and was monitored in the OR in stable condition. RECOMMENDATIONS: 1. Patient will be on Iron-C b.i.d. for 3 months. We will start patient on Centrum Silver once daily for 3 months. 2. The patient counseled to quit smoking. 3. The patient will need a video capsule endoscopy as an outpatient to further workup anemia. 4. The patient to continue on PPIs for GI prophylaxis. 5. We will start on full liquid diet. Advance as tolerated. 6. We will start on MiraLAX 17 g once daily. We will start the patient on Metamucil 1 tablespoon at bedtime. 7. Patient will continue on diverticulosis diet. Avoid excessive corn, nuts, and seeds in diet. 9. I will start patient on hydrocortisone cream per rectal b.i.d. for treatment of hemorrhoids. 10. Above plans discussed with the patient and all questions answered. Please call us with any further questions. cc: MD Wilder Kirby MD [facility]
[2018-12-29] MEDS: LEVAQUIN 500 MG/D5W 500 MG/100 ML IVPB IV SCH (17:22)
[2018-12-29 17:26] LABS: HEMATOCRIT 25.2 % (42.0-52.0); HEMOGLOBIN 8.1 g/dL (14.0-18.0)
[2018-12-29] MEDS ORDERED: METAMUCIL POWDER PACKET PO SCH (21:00)
[2018-12-29] MEDS: ANUSOL-HC CREAM PR SCH (22:25)
[2018-12-29] MEDS: PRAVACHOL PO SCH (22:26)
[2018-12-29] MEDS: ICAR-C PO SCH (22:26)
[2018-12-29] MEDS ORDERED: AYR NASAL SPRAY NAS PRN (22:56)
[2018-12-29 23:51] LABS: HEMATOCRIT 25.1 % (42.0-52.0); HEMOGLOBIN 8.1 g/dL (14.0-18.0)
[2018-12-30] MEDS: PROTONIX IV SCH (03:17)
[2018-12-30] MEDS: SODIUM CHLORIDE 0.9% INJ SCH (03:17)
[2018-12-30] MEDS: DUONEB (A & A) INH SCH ×2 (03:25→08:02)
[2018-12-30] MEDS: HUMALOG SUBQ SCH ×2 (06:06→12:00)
[2018-12-30 07:22] VITALS: BP 128/91
[2018-12-30 08:20] LABS: HEMATOCRIT 24.9 % (42.0-52.0); HEMOGLOBIN 7.9 g/dL (14.0-18.0); IMM GRAN# 0.06 X1000 (0.0-0.04); LYMPH# 0.43 X1000 (1.2-3.4); LYMPH% 6.9 % (20.5-51.1); MCH 31.5 PG (27-31); MCHC 31.7 g/dL (33-37); MCV 99.2 FL (81-99); MONO# 0.77 X1000 (0.11-0.59); MONO% 12.3 % (1.7-9.3); MPV 9.2 FL (7.4-10.4); NEUT# 4.99 X1000 (1.4-6.5); NEUT% 79.8 % (42.2-75.2); PLT 331 X1000 (130-400); RBC 2.51 XMIL (4.7-6.1); RDW 17.6 % (11.5-14.5); WBC 6.25 X1000 (4.8-10.8)
[2018-12-30] MEDS: SOLU-MEDROL IV SCH (08:35)
[2018-12-30] MEDS: ICAR-C PO SCH (08:35)
[2018-12-30] MEDS: CORDARONE PO SCH (08:35)
[2018-12-30] MEDS: ANUSOL-HC CREAM PR SCH (08:36)
[2018-12-30 08:46] LABS: AGAP 9; ALBUMIN 3.2 g/dL (3.5-5.0); ALKALINE PHOSPHATASE 52 U/L (32-122); BUN 17 mg/dL (8-22); CHLORIDE 100 mmol/L (98-107); COSMO 284; CREATININE 0.6 mg/dL (0.7-1.2); ESTIMATED GFR > 60; GLUCOSE 217 mg/dL (70-104); GOT 10 U/L (10-34); GPT 12 U/L (10-44); POTASSIUM 3.6 mmol/L (3.5-5.1); SODIUM 138 mmol/L (136-145); TCO2 29 mmol/L (25-35); TOTAL BILIRUBIN 0.28 mg/dL (0.20-1.00); TOTAL PROTEIN 6.5 g/dL (6.3-8.3)
[2018-12-30] MEDS ORDERED: MIRALAX PO SCH (09:00)
[2018-12-30] MEDS ORDERED: CENTRUM SILVER PO SCH (09:00)
--- NOTE | 2018-12-30 17:58 | PROVIDER PROGRESS NOTE ---
Progress Note SUBJECTIVE: No acute overnights. No complaints. No bleeding. OBJECTIVE: Last Vital Signs Temp 97.9 F 12/30/18 07:22 Pulse 107 H 12/30/18 08:02 Resp 20 12/30/18 08:02 BP 128/91 12/30/18 07:22 Pulse Ox 94 L 12/30/18 08:04 Height 5 ft 10 in Weight 239 lb 3.2 oz GEN: awake, alert, NAD HEENT: anicteric, MMM CV: irregularly irregular PULM: CTAB ABD: obese, soft NT/ND, NABS EXT: no cce NEURO: nonfocal LABS: 12/30/18 12/30/18 07:40 07:40 WBC 6.25 Hgb 7.9 L Plt Count 331 Sodium 138 Potassium 3.6 Colonoscopy POSTOPERATIVE DIAGNOSES: 1. Stool in the left colon. 2. Diverticulosis in the descending and sigmoid colon to moderate degree. 3. Evidence of internal hemorrhoids grade 2. 4. No evidence of any active bleeding. There was no blood in the colon. No evidence of any colitis. EGD 12/28/2018 Normal A/P: Mr. Everett Driscoll is a 63-year-old gentleman with past medical history no table for chronic obstructive pulmonary disease on home oxygen, congestive heart failure, nonobstructive coronary artery disease, atrial fibrillation, recently started on Eliquis, who presented with acute blood loss anemia, found to have a hemoglobin of 5.6, transfused 3 units. EGD was normal. Colonoscopy showed diverticulosis and hemorrhoids without obvious source of bleeding other than diverticulosis. #GI bleed: unclear etiology ?diverticular; recommend outpatient capsule endoscopy #Afib: resume Eliquis for primary CVA prevention #COPD: mgmt per primary #DM2: SSI #HTN: controlled #Diverticulosis: high fiber diet #CHF stable Patient is ok to be discharged with GI follow-up to arrange capsule endoscopy
--- NOTE | 2018-12-31 15:49 | DISCHARGE SUMMARY ---
ADMISSION DATE: 12/27/2018 DISCHARGE DATE: 12/30/2018 DISPOSITION: Is home. FOLLOWUP: 1. Dr. Hartmann. 2. Dr. Moses. 3. Dr. Salgado. CONSULTATION: GI was consulted, patient was seen by Dr. Salgado and Dr. Daugherty. Pulmonary Medicine was consulted, patient was seen by Dr. Moses. INVASIVE PROCEDURES: EGD was initially done by Dr. Daugherty which was unremarkable. A colonoscopy was done by Dr. Salgado that showed diverticulosis, evidence of internal hemorrhoids but there was no evidence of active bleeding. ADMISSION DIAGNOSES: 1. Gastrointestinal bleed. 2. Chronic obstructive pulmonary disease. 3. Atrial fibrillation. 4. Diabetes. 5. Hypertension. DIAGNOSIS AT THE TIME OF DISCHARGE: 1. Symptomatic anemia on presentation patient is status post 2 packed red blood cells transfusion, hemoglobin and hematocrit is stable. 2. Gastrointestinal bleed secondary to Eliquis anticoagulation. Patient had EGD and colonoscopy both of which were unremarkable. There is a plan for video capsule endoscopy on outpatient base. Patient will follow up with GI and get that arranged. 3. Chronic obstructive pulmonary disease with mild exacerbation, patient was treated with standard of care, he is now feeling a lot better. 4. History of atrial fibrillation currently rate controlled. Patient is currently on amiodarone, anticoagulation was withheld because of gastrointestinal bleed from Dr. Daugherty, he thinks is safe to restart the patient back on his anticoagulation. 5. Diabetes mellitus controlled. 6. Hypertension controlled. 7. Acute on chronic hypoxemic respiratory failure. Patient is now back to his normal 2 to 4 L of nasal cannular at home. DISCHARGE MEDICATIONS: 1. Hydrochlorothiazide with lisinopril 1 tablet daily. 2. Pravastatin 40 mg p.o. daily. 3. Amiodarone 200 mg daily. 4. Ventolin inhaler 2 puffs every 6 hours p.r.n. 5. Metformin 1000 p.o. daily. 6. Zolpidem. 7. Glipizide 5 mg p.o. daily. 8. Anusol cream. 9. Multivitamin 1 tab daily. 10. Iron tablet 1 b.i.d. 11. Prednisone 20 mg daily. 12. Spiriva 2.5 mcg inhaler daily. 13. Apixaban 5 mg b.i.d. 14. Levofloxacin 500 p.o. daily. 15. Omeprazole 20 mg p.o. daily. PRESENTING COMPLAINT: Shortness of breath. HISTORY OF PRESENTING COMPLAINT: Mr. Loving is a 63-year-old male with a history of COPD on home 2 oxygen, came to emergency department because of shortness of breath, patient also complained of ongoing dark stools. Upon presentation he was found to be remarkably hypoxemic with oxygen saturation of 69 on room air. His stool was also positive. He was found to have hemoglobin of 5.6. Mr. Loving was admitted for further medical care. He was transferred from [place] to [facility] for higher level of care. HOSPITAL COURSE: Mr. Loving was initially given 3 units of PRBC transfusion which he tolerated well. GI was consulted. Patient was initially seen by Dr. Daugherty. EGD was done which was unremarkable. Preparation was done for colonoscopy. This was successfully done by Dr. Salgado. Findings are in the chart. There was a recommendation for patient to follow up with GI for video capsule arrangement. During the hospital cause Mr. Loving was also found to have COPD exacerbation. He was started on antibiotics, steroids and bronchodilation. His symptoms remarkably improved. Respiratory failure also continued to get better. He was transition to nasal cannular, this morning he is only on 4 L which he normally takes at home. We think he is clinically stable for discharge. He is going to follow up with his primary care Dr. Hartmann, his pulmonary doctor Dr. Moses and GI doctors. In terms of anticoagulation I spoke specifically with Dr. Daugherty the GI doc on board, he think it is safe to start Mr. Loving on his anticoagulation so this will be restarted back. All the discharge instructions have been discussed with the patient and he voiced understanding. There was no family member at the bedside at the time of the discharge. TIME SPENT: 37 minutes. cc: Audrey Moses MD
== END 2018-12-30 15:25 | disposition home or self-care (01) | DRG 377 ==
LOC: P.ED 13:47 → SUATTDRO 15:57 → ICU 15:57 → 3N 12-28 21:26
PROVIDERS: ATTEND Internal Medicine
CPT/HCPCS: 36430; 71010; 71045; 80053; 81001; 82270; 82550; 82805; 82948; 83605; 83880; 84484; 85014; 85018; 85025; 85610; 85730; 86850; 86900; 86901; 86920; 87040; 93005; 94640; 94760; 94761; 94799; 99285; A9270; C9113; J0330; J1200; J1815; J1956; J2250; J2930; J7030; P9016; S0164; XXXXX

== ENCOUNTER 2019-01-07 14:36 | Inpatient (IN) ==
[2019-01-07] MEDS ORDERED: DUONEB (A & A) INH ONE (15:45)
[2019-01-07] MEDS ORDERED: SOLU-MEDROL IV ONE (15:45)
--- NOTE | 2019-01-07 15:52 | PROVIDER DOCUMENTATION ---
HPI-Respiratory General - General Chief Complaint: Shortness of Breath Stated Complaint: NEAR SYNCOPE Time Seen by Provider: 01/07/19 15:02 Source: patient, family Allergies/Adverse Reactions: Patient Allergies Allergy/AdvReac Type Severity Reaction Status Date / Time pneumococcal vaccine Allergy Unknown Verified 12/06/15 15:21 roflumilast [From Dalires] AdvReac DIZZINESS Verified 12/28/18 10:43 Home Medications: Home Medication List Medication Instructions Recorded Confirmed Last Taken Type Amiodarone [Cordarone] 200 mg PO DAILY 12/06/15 12/28/18 10/12/18 07:00 History Lisinopril/Hydrochlorothiazide 1 each PO DAILY 12/06/15 12/28/18 10/12/18 07:00 History [Lisinopril-Hctz 20-25 mg Tab] PRAVAstatin [Pravachol] 40 mg PO QHS 12/06/15 12/28/18 10/12/18 07:00 History Albuterol Sulfate Inhaler 2 puff INH Q6H PRN PRN 06/29/17 12/28/18 10/13/18 07:00 History [Ventolin Hfa] Ipratropium/Albuterol Sulfate 3 ml IH DAILY PRN 06/29/17 12/28/18 10/13/18 History [Iprat-Albut 0.5-3(2.5) mg/3 ml] Fluticasone 50 Mcg Nasal [place] 1 spray INTRANASAL DAILY 12/28/18 12/28/18 Unknown History [Flonase] Fluticasone/Umeclidin/Vilanter 1 ea INH DAILY 12/28/18 12/28/18 Unknown History [Trelegy Ellipta 100-62.5-25] Glipizide E.r. [Glucotrol Xl] 5 mg PO DAILY 12/28/18 12/28/18 Unknown History Metformin HCl 1,000 mg PO DAILY 12/28/18 12/28/18 Unknown History Zolpidem [Ambien] 10 mg PO QHS PRN 12/28/18 12/28/18 Unknown History Apixaban [Eliquis] 5 mg PO BID #120 tab 12/30/18 Unknown Rx Hydrocortisone 2.5% Cream 2.5 gm [place] BID #1 tube 12/30/18 Unknown Rx [Anusol-Hc Cream] Iron Carbonyl/Ascorbic Acid 1 ea PO BID #120 tab 12/30/18 Unknown Rx [Icar-C] Levofloxacin [Levaquin] 500 mg PO DAILY #5 tab 12/30/18 Unknown Rx Multivitamins/Minerals [Centrum 1 ea PO DAILY #120 tab 12/30/18 Unknown Rx Silver] Omeprazole 20 mg PO DAILY #120 tab. 12/30/18 Unknown Rx Prednisone 20 mg PO DAILY #5 tab 12/30/18 Unknown Rx Psyllium [Metamucil Powder Packet] 1 ea PO QHS #120 packet 12/30/18 Unknown Rx Tiotropium [place] [Spiriva 2.5 mcg INHALATION DAILY #1 12/30/18 Unknown Rx Respimat] mist.inhal - History of Present Illness-Resp Nature of Presenting Problem: reports that hes been worsening sob on exertion since he has been discharged from the hospital about a week. on 02 supplement but worsening now. feel weak. mild cough but attributes that is his baseline. he did use the breathing q4h at home. and has been using it more this time. admit fever 100.4. he worries that his hb has dropped again. Review of Systems - Adult - REVIEW OF SYSTEMS - ADULT Constitutional: reports: no symptoms reported Eyes: reports: no symptoms reported Ears, Nose, Mouth & Throat: reports: no symptoms reported Cardiovascular: reports: no symptoms reported Respiratory: reports: no symptoms reported Gastrointestinal: reports: no symptoms reported Genitourinary: reports: no symptoms reported Musculoskeletal: reports: no symptoms reported Integumentary: reports: no symptoms reported Neurological: reports: no symptoms reported Psychiatric: reports: no symptoms reported Endocrine: reports: no symptoms reported Hematologic/Lymphatic: reports: no symptoms reported Allergic/Immunologic: reports: no symptoms reported All Other Systems: Reviewed and Negative Past History - Adult - PAST MEDICAL HISTORY-ADULT Review of Records: reports: Old Records Reviewed, Nursing Assessment Review, Medications Reviewed, Social history reviewed & non-contributory. Major Childhood Illnesses: reports: denies history Cardiovascular: reports: A-Fib, CHF, HTN, hyperlipidemia Respiratory: reports: COPD Gastrointestinal: reports: denies history Obstetrical/Gynecological: reports: denies history Genitourinary: reports: denies history Musculoskeletal: reports: denies history Neurological: reports: denies history Endocrine/Immune: reports: Diabetes Other Conditions: reports: denies history - PRIOR SURGERIES/PROCEDURES Surgical/Procedure History: reports: reviewed, not pertinent, appendectomy - IMMUNIZATION STATUS Childhood Immunizations: See Nurse Assessment Flu Vaccine: See Nurse Assessment - FAMILY HISTORY Family History: reviewed, not pertinent - SOCIAL HISTORY Smoking: denies Substance Use: none/never Alcohol Use Frequency: never Living Situation: family Physical Exam-General - PHYSICAL EXAM-ADULT Initial Vital Signs Reviewed: Yes - CONSTITUTIONAL General Appearance: appears well, mild distress, other (on o2 supplement.) - EYES Eyes: PERRL/EOMI, pink conjunctivae - HEAD, EARS, NOSE, MOUTH & THROAT HENMT: normocephalic/atraumatic, moist mucous membranes, normal ENT inspection - NECK Neck: non-tender, full range of motion - RESPIRATORY Respiratory: chest non-tender, wheezing - CARDIOVASCULAR Cardiovascular: normal peripheral pulses, regular rate, rhythm - GASTROINTESTINAL (ABDOMEN) Abdominal Exam: normal bowel sounds, non tender, soft - MUSCULOSKELETAL Back Exam: normal inspection, no CVA tenderness, CVA tenderness Extremity: normal range of motion, non-tender, normal gait, swelling (pitting edema 2+) - SKIN Integumentary: normal color, normal turgor, warm/dry - NEUROLOGIC Neurologic: grossly normal, no motor/sensory deficits - PSYCHIATRIC Psych/Mental Status: normal thought content, normal thought process, oriented x 3 Progress - PLAN OF CARE/RESULTS Progress/Plan/Lab Results: Vital Signs - 8 hr 01/07/19 15:02 01/07/19 15:07 01/07/19 15:19 Temperature 98.3 F Pulse Rate 87 Respiratory Rate 18 Blood Pressure 88/48 97/46 97/46 O2 Sat by Pulse Oximetry 95 97 97 01/07/19 15:30 01/07/19 15:32 01/07/19 16:02 Temperature Pulse Rate 83 84 87 Respiratory Rate 15 21 16 Blood Pressure 97/51 82/52 O2 Sat by Pulse Oximetry 95 96 98 01/07/19 16:17 01/07/19 16:32 01/07/19 17:03 Temperature Pulse Rate 78 81 83 Respiratory Rate 18 13 22 Blood Pressure 93/45 98/43 O2 Sat by Pulse Oximetry 98 98 97 01/07/19 17:32 Temperature Pulse Rate 78 Respiratory Rate 16 Blood Pressure 99/51 O2 Sat by Pulse Oximetry Laboratory Results - last 24 hr 01/07/19 01/07/1919 15:14 15:14 15:14 WBC 9.84 RBC 2.69 L Hgb 8.8 L Hct 27.6 L MCV 102.6 H MCH 32.7 H MCHC 31.9 L RDW Std Deviation 17.9 H Plt Count 294 MPV 9.5 Immature Gran % (Auto) 0.6 H Neut % (Auto) 68.0 Lymph % (Auto) 14.2 L [place] % (Auto) 15.9 H Eos % (Auto) 0.9 Baso % (Auto) 0.4 Immature Gran # (Auto) 0.06 H Neut # (Auto) 6.69 H Lymph # (Auto) 1.40 [place] # (Auto) 1.56 H Eos # (Auto) 0.09 Baso # (Auto) 0.04 PT INR PTT (Actin FS) Specimen Type Sample Site pH pCO2 pO2 HCO3 Base Excess Oxyhemoglobin ABG O2 Sat (Calculated) ABG O2 Saturation ABG Carboxyhemoglobin ABG Methemoglobin Javier Test A-a O2 Difference Total Hemoglobin Lactate Liter Flow Blood Gas Modality FiO2 % Sodium 134 L Potassium 4.2 Chloride 96 L Carbon Dioxide 26 Anion Gap 12 BUN 13 Creatinine 0.7 Estimated GFR/1.73 m2 > 60 BUN/Creatinine Ratio 19 Glucose 74 Calculated Osmolality 267 Calcium 8.5 L Total Bilirubin 0.43 AST 15 ALT 12 Alkaline Phosphatase 54 Creatine Kinase 26 Troponin T [id number] Pept 346 H Total Protein 5.9 L Albumin 3.2 L Globulin 2.7 Albumin/Globulin Ratio 1.2 01/07/19 01/07/19 01/07/19 15:14 15:14 16:16 WBC RBC Hgb Hct MCV MCH MCHC RDW Std Deviation Plt Count MPV Immature Gran % (Auto) Neut % (Auto) Lymph % (Auto) [place] % (Auto) Eos % (Auto) Baso % (Auto) Immature Gran # (Auto) Neut # (Auto) Lymph # (Auto) [place] # (Auto) Eos # (Auto) Baso # (Auto) PT 15.4 INR 1.12 PTT (Actin FS) 35.0 Specimen Type ARTERIAL Sample Site R RADIAL pH 7.46 H pCO2 39 pO2 79 HCO3 27.6 H Base Excess 3.7 H Oxyhemoglobin 89.3 L* ABG O2 Sat (Calculated) 16.3 ABG O2 Saturation 95.9 ABG Carboxyhemoglobin 6.20 H* ABG Methemoglobin 0.7 Javier Test YES A-a O2 Difference 129.0 Total Hemoglobin 12.9 Lactate 0.70 Liter Flow 4.0 Blood Gas Modality CAN[place]ULA FiO2 % 36.0 Sodium Potassium Chloride Carbon Dioxide Anion Gap BUN Creatinine Estimated GFR/1.73 m2 BUN/Creatinine Ratio Glucose Calculated Osmolality Calcium Total Bilirubin AST ALT Alkaline Phosphatase Creatine Kinase Troponin T < 0.010 [id number]-D-Sqbxsxxhpwh Pept Total Protein Albumin Globulin Albumin/Globulin Ratio Orders Category Date Time Status Cardiac Monitoring DIRECTED Care 01/07/19 15:35 Active Oxygen Therapy- ED Nursing DIRECTED Care 01/07/19 15:35 Active Saline Loc NOW Care 01/07/19 15:35 Active CHEST-2 VIEWS [RAD] Stat Exams 01/07/19 15:35 Completed ABG [RESP] Routine Lab 01/07/19 16:16 Completed CBC WITH ELECTRONIC DIFF [HEME] Stat Lab 01/07/19 15:14 Completed CK PROFILE [SP CHEM] Stat Lab 01/07/19 15:14 Completed COMPREHENSIVE METABOLIC PANEL [CHEM] Stat Lab 01/07/19 15:14 Completed D-DIMER [COAG] Stat Lab 01/07/19 17:50 Uncollected PRO B-NATRIURETIC PEPTIDE Stat Lab 01/07/19 15:14 Completed PROTIME WITH INR [COAG] Stat Lab 01/07/19 15:14 Completed PTT [COAG] Stat Lab 01/07/19 15:14 Completed TROPONIN T Stat Lab 01/07/19 15:14 Completed 0.9% Sodium Chloride Inj [Ns] 1,000 ml Med 01/07/19 17:39 Active IV 999 mls/hr Albuterol 2.5MG/Ipratrop 0.5MG [Duoneb (A & A)] Med 01/07/19 15:45 Discontinued 3 ml INH NOW ONE Levofloxacin 750 mg/D5w [Levaquin 750 mg/D5w] Med 01/07/19 17:39 Active 750 mg in 150 ml IV NOW Methylprednisolone Sod Succ [Solu-Medrol] Med 01/07/19 15:45 Discontinued 80 mg IV NOW ONE Aerosol Treatments Routine Oth 01/07/19 15:45 Completed Aerosol Treatments Stat Oth 01/07/19 15:45 Completed CP/SOB/Palp >45 yrs of Age Stat Oth 01/07/19 15:34 Ordered EKG [EKG] Stat Ther 01/07/19 15:35 Ordered Result Diagrams: 01/07/19 15:14 01/07/19 15:14 - CONSULTS/PCP/HOSPITALIST Notification #1 *Consult/PCP/Hospitalist*: Anabel Dave Time Discussed: 17:51 Consult Disposition: Admit Departure - Departure Date of Disposition Decision: 01/07/19 Time of Disposition Decision: 17:52 DIAGNOSIS: COPD with exacerbation, PNA (pneumonia), Sepsis Disposition: ADMITTED INPATIENT 09 Certified Medical Emergency: Emergent Condition: Stable Referrals and Follow-Ups: Tali Hartmann MD [Primary Care Provider] - - Critical Care Note This patient required my direct & personal management of CC.: No Attestation - Physician/ PATTIE Attestation The physician spent face to face time with patient:: Yes Advanced Practice Provider documentation review:: Supervising physician onsite and consulted in the evaluation and care of this patient. The physician did have a face to face encounter with the patient.
[2019-01-07 16:07] LABS: BASO# 0.04 X1000 (0.0-0.2); BASO% 0.4 % (0.0-0.8); EOS# 0.09 X1000 (0.0-0.7); EOS% 0.9 % (0.0-10.0); HEMATOCRIT 27.6 % (42.0-52.0); HEMOGLOBIN 8.8 g/dL (14.0-18.0); IMM GRAN# 0.06 X1000 (0.0-0.04); IMM GRAN% 0.6 % (0.0-0.5); LYMPH% 14.2 % (20.5-51.1); MCH 32.7 PG (27-31); MCHC 31.9 g/dL (33-37); MCV 102.6 FL (81-99); MONO# 1.56 X1000 (0.11-0.59); MONO% 15.9 % (1.7-9.3); MPV 9.5 FL (7.4-10.4); NEUT# 6.69 X1000 (1.4-6.5); PLT 294 X1000 (130-400); RBC 2.69 XMIL (4.7-6.1); RDW 17.9 % (11.5-14.5); WBC 9.84 X1000 (4.8-10.8)
--- NOTE | 2019-01-07 16:09 | Diag Imaging Result Doc PS360 ---
EXAM: CHEST-2 VIEWS HISTORY: sob TECHNIQUE: Chest two views COMPARISON: 12/28/2018 FINDINGS: The lungs are hyperexpanded. The heart is not enlarged. The vessels are distended. There are left basilar infiltrates. No pleural effusions. IMPRESSION: Left basilar infiltrates with pulmonary edema Electronically signed by Domenico Ayoub 01/07/2019 4:06 PM
[2019-01-07 16:12] LABS: INR 1.12; PROTIME 15.4 Seconds (11.0-16.0)
[2019-01-07 16:23] LABS: AGAP 12; ALB/GLOB RATIO 1.2; ALBUMIN 3.2 g/dL (3.5-5.0); ALKALINE PHOSPHATASE 54 U/L (32-122); BUN 13 mg/dL (8-22); CALCIUM 8.5 mg/dL (8.8-10.2); CHLORIDE 96 mmol/L (98-107); CK PROFILE 26 U/L (24-204); COSMO 267; CREATININE 0.7 mg/dL (0.7-1.2); ESTIMATED GFR > 60; GLUCOSE 74 mg/dL (70-104); GOT 15 U/L (10-34); GPT 12 U/L (10-44); POTASSIUM 4.2 mmol/L (3.5-5.1); SODIUM 134 mmol/L (136-145); TCO2 26 mmol/L (25-35); TOTAL BILIRUBIN 0.43 mg/dL (0.20-1.00); TOTAL PROTEIN 5.9 g/dL (6.3-8.3)
[2019-01-07 16:26] LABS: ALLEN TEST YES; BE 3.7 mmoll (-3.0-3.0); BLOOD TYPE ARTERIAL; HCO3-(ACT) 27.6 mmoll (20.0-26.0); METHB 0.7 % (0.0-1.5); O2(CT) 16.3 mL/dL (15.0-23.0); PCO2(98.6) 39 mmHg (35-45); PO2(98.6) 79 mmHg (60-100); SAMPLE BLOOD; SAO2 95.9 % (95.0-100.0); THB 12.9 g/dL (11.5-17.4); pH(98.6) 7.46 (7.35-7.45)
[2019-01-07 16:30] LABS: MODALITY CANNULA; O2HB 89.3 % (95.0-99.0)
[2019-01-07] MEDS ORDERED: NS 1,000 ML IV ONE (17:39)
[2019-01-07] MEDS ORDERED: LEVAQUIN 750 MG/D5W 750 MG/150 ML IVPB IV ONE (17:39)
[2019-01-07] MEDS ORDERED: TYLENOL PO PRN (18:22)
[2019-01-07] MEDS ORDERED: DUONEB (A & A) INH PRN (18:22)
--- NOTE | 2019-01-07 18:23 | ED EKG INTERP ---
This chart was entered by Tasha Gamboa Scribe, acting as scribe for Alissa Adkins MD. EKG Interpretation - EKG Time of EKG reading by physician:: 15:03 EKG Read and Signed by:: Alissa Adkins EKG Interpretation (*Must complete 3 of following elements*): Abnormal Rate: 93 Rhythm: NSR [place]: normal QRS: RBB LA Interval: normal ST Wave: normal Attestation - Physician/ PATTIE Attestation Patient care was provided by Advanced Practice Provider:: No The physician spent face to face time with patient:: Yes Advanced Practice Provider documentation review:: Supervising physician onsite and consulted in the evaluation and care of this patient. The physician did have a face to face encounter with the patient. This chart was documented by the indicated scribe, (Tasha Gamboa Scribe) and accurately reflects the services I performed and decisions made by me, Alissa Adkins MD, as attested by the provider's signature.
[2019-01-07] MEDS ORDERED: ROCEPHIN 1 GM in NS 50 ML IV SCH (18:30)
--- NOTE | 2019-01-07 19:48 | HISTORY AND PHYSICAL ---
PRIMARY CARE PROVIDER: Dr. Tali Hartmann. UNIX DEVELOPER: Dr. Moses. LAND USE PLANNER: Dr. Vicente. CHIEF COMPLAINT: Shortness of breath and low-grade fever. HISTORY OF PRESENT ILLNESS: Mr. Everett Loving is a 63-year-old male with a medical history of paroxysmal atrial fibrillation, congestive heart failure, hypertension, most recently a GI bleed from a diverticula where he was stopped on his Eliquis and only resumed on aspirin. He denies any bleeding symptoms at all. He does have a history of COPD and he is on 3.5 to 4 liters of oxygen continuously. He states that over the last 3 days, he has had worsening shortness of breath, some low-grade fevers, cream-colored phlegm and that today he was just very weak and a little dizzy. He states that he has been taking his breathing treatments every 4 hours, which really has not helped much and so he came to [facility] for workup. Imaging reveals that he may have a possible left basilar pneumonia with possible pulmonary edema. He actually has a not very elevated ProBNP. He does have some lower extremity edema. He has expiratory wheezes and prolonged expiration. His oxygen saturation is about 94-95% on 4 liters of oxygen. Blood pressure has been maintained and mostly in the 90s systolically. We are going to admit. It looks like he has some hypoxemic chronic respiratory pulmonary disease with some pneumonia and there may be possibility of component of congestive heart failure. His last electrocardiogram was in October and had a normal ejection fraction of 60%, although the aortic valve did have some calcification with some restriction in motion. We will admit him to the medical floor. We will treat him for pneumonia and COPD exacerbation with hypoxia. PAST MEDICAL HISTORY: 1. GI bleed from diverticula this past month. 2. Paroxysmal atrial fibrillation. He was first diagnosed in 2011. Last time he was in [facility] was in September 2018. Currently only on aspirin and amiodarone. Was taken off Eliquis due to the GI bleed. 3. COPD. Continuous home oxygen of 3.5 to 4 liters. 4. Hypertension. 5. Diabetes mellitus type 2, on oral medications. 6. Reported congestive heart failure but his echocardiogram does not look too bad. He does have some what looks like aortic stenosis with restricted motion. 7. Diverticula. PAST SURGICAL HISTORY: 1. EGD and colonoscopy this month. 2. Hernia repair. 3. Appendectomy. 4. Recent left heart catheterization. SOCIAL HISTORY: He has been a smoker for 40 years at least, usually 3 to 4 cigars per day but over the last month, he has had only 1 cigar. He also used to be a heavy drinker, 12 to 15 beers per day, but he says he has not had a drink in over a year. He denies any illicit drug use. FAMILY HISTORY: Positive for hypertension. ALLERGIES: Pneumococcal vaccine and roflumilast. HOME MEDICATIONS: 1. Ambien 10 mg p.o. nightly p.r.n.. 2. Pravachol 40 mg p.o. nightly. 3. Amiodarone 200 mg p.o. daily. 4. Flonase intranasally once daily. 5. Glucotrol XL 5 mg p.o. daily. 6. Albuterol/Atrovent p.r.n. 7. Lisinopril hydrochlorothiazide once daily. 8. Metformin 1000 mg p.o. daily. 9. Ellipta inhaled daily. 10.Albuterol sulfate inhaler, 2 puffs inhaled every 6 hours p.r.n. 11.Metamucil once nightly. 12.Hydrocortisone (Anusol) per rectum twice daily. 13.Centrum Silver once p.o. daily. 14.Icar-C, one tab p.o. twice daily. 15.He just recently finished up Levaquin 500 mg p.o. daily. 16.Omeprazole 20 mg p.o. daily. 17.Prednisone 20 mg p.o. daily. 18.Spiriva 2 puffs daily. REVIEW OF SYSTEMS: A 14-point review of systems are completed and all are negative except for those mentioned above in HPI. He did claim to have a subjective fever of 99 degrees to 100.4 degrees. Denied any chest pain. PHYSICAL EXAMINATION: VITAL SIGNS: Temperature 98.3 degrees, heart rate 81, respiratory rate 17, blood pressure 93/52, oxygen saturation 95% on 4 liters nasal cannula oxygen, his home dose. GENERAL: Mr. Everett Loving is a 63-year-old male. He is in no acute distress. He is able to answer questions appropriately. HEENT: Atraumatic, normocephalic. Pupils equal, round and reactive to light. Extraocular movements intact. Mucous membranes are moist. NECK: Trachea is midline. CARDIOVASCULAR: S1, S2. Regular rate and rhythm. No murmurs, rubs or gallops. He has +1 lower extremity edema. He has +2 dorsalis and radial pulses. Negative for JVD or carotid bruits. PULMONARY: Posteriorly, he has prolonged expiration with expiratory wheezing noted throughout both lungs but no accessory muscle use or work of breathing noted. He is tolerating 4 liters nasal cannula oxygen. GI: Soft, nontender, nondistended. Positive bowel sounds x 4. EXTREMITIES: Moves all extremities equally. Full range of motion. NEUROLOGICAL: Alert and oriented x 3. Follows commands. Sensory is intact. SKIN: Warm, dry and intact but pale. LABORATORY DATA: White blood cell count 9000, hemoglobin 8, hematocrit 27, platelet count 294. INR is 1.12, PTT is 35. D-dimer is 0.46. Arterial blood gases on his home oxygen at 4 liters: pH of 7.46, PCO2 of 39, PO2 of 79, bicarb 27, base excess 3.7, oxygen saturation 95%. Sodium 134, potassium 4.2, BUN 13, creatinine 0.7, glucose 74, calcium 8.5, total bilirubin 0.43, AST 15, ALT 12. CK 26. Troponin less than 0.01. ProBNP of 346. Albumin is 3.2. IMAGING: Chest x-ray shows left basilar infiltrates with pulmonary edema. EKG is normal sinus rhythm with rate of 93. ASSESSMENT AND PLAN: 1. Dyspnea on exertion and at rest, worsened now with acute on chronic hypoxemic respiratory failure. He is still requiring his actual home dosing of oxygen, 4 liters, but he is much more short of breath and he has pneumonia now. We will do nebulizers and continue his oxygen, titrate as needed. Pulmonary toilet. 2. Chronic obstructive pulmonary disease. He has mild exacerbation but he is not retaining CO2, it is more of hypoxia. He will be on IV steroids and antibiotic coverage. 3. He has a left lower lobe pneumonia versus pulmonary edema. His white blood cell count is actually normal at 9000. He has a reported subjective fever. He was given Levaquin in the Emergency Room. I am going to give him Rocephin, given the combination of Levaquin and amiodarone increasing the risk of prolonged QTC, so we will do Rocephin. Repeat chest x-ray tomorrow. 4. History of paroxysmal atrial fibrillation. His last atrial fibrillation with rapid ventricular response was in September of 2018. He has been on amiodarone. He was on Eliquis up until earlier this month, where he was stopped due to a GI bleed from diverticula. He is only on low- dose aspirin of 81 mg per day that has been resumed. He is on amiodarone 200 mg p.o. daily and we will continue that as well. 5. Hypertension. Currently he is more hypotensive. He is running in the 90s. He is not really symptomatic but I am going to hold his hydrochlorothiazide/lisinopril medication. 6. Diabetes mellitus type 2. We will do patterned blood glucoses and sliding- scale insulin. 7. Diverticular bleed earlier this month. He states his bowel movements are normal now. He denies any black, tarry or bloody stools. 8. Reported congestive heart failure but his ejection fraction is normal. It really does not look like there is any diastolic dysfunction but he does have an aortic valve that has restricted motion. Given the blood pressure in the 90s, I am going to withhold giving any Lasix right now. He does actually have some lower extremity edema as well. He denies taking any diuretics at home except for the hydrochlorothiazide that he is on. 9. DVT prophylaxis. We will do sequential compression devices for now. 10.Tobacco abuse. He is down to 1 cigarettes in the last 3 to 4 months. Continued cessation recommended. Dictated by AMAN Zaman for Hiram Carbajal MD cc: AMAN Zaman MD Sarah E. Styers, MD I agree with most components of history, physical, assessment and plan. A separate addendum has been dictated. JENNIFER
[2019-01-07] MEDS ORDERED: SOLU-MEDROL IV SCH (22:00)
[2019-01-07] MEDS: METAMUCIL POWDER PACKET PO SCH (22:48)
[2019-01-07] MEDS: HUMULIN R SUBQ SCH (22:48)
[2019-01-07] MEDS: AMBIEN PO PRN (22:49)
[2019-01-07] MEDS: PRAVACHOL PO SCH (22:49)
[2019-01-07] MEDS: ANUSOL-HC CREAM PR SCH (22:52)
[2019-01-08] MEDS: DUONEB (A & A) INH SCH ×6 (03:52→19:37)
--- NOTE | 2019-01-08 05:45 | HISTORY AND PHYSICAL ---
ADDENDUM: To history and physical dictated by the nurse practitioner. I agree with most components of history, physical, assessment and plan, In brief, Mr. Loving is a 63-year-old man with past medical history of chronic obstructive pulmonary disease and chronic hypoxic respiratory failure, on home 2 L oxygen, noninsulin-dependent diabetes mellitus, atrial fibrillation, not on Eliquis anymore since symptomatic anemia in December 2017 and positive fecal occult blood test, iron deficiency anemia, who was recently in the hospital for a GI bleed and mild acute chronic obstructive pulmonary disease exacerbation, who was discharged a week ago, comes in with chief complaints of worsening shortness of breath and mild fever of 100.4. He also had an episode of dizziness and near-syncope. In the emergency room, he was found to be hypotensive with blood pressure of 80/50, and he was saturating 97% on 3 L nasal cannula. Hospitalist team was consulted for further management since his chest x- ray had suggested bilateral lower lobe infiltrate. At the time of my evaluation, he is denying any chest pain. He is still feeling a little short of breath, he complains of mild wheezing as well. He is coughing more frequently than he normally does and bringing up whitish expectoration. VITALS: Current temperature of 98.3 degrees, pulse of 81, respiratory 17, blood pressure 93/52, saturating 95% on 2 L nasal cannula. PHYSICAL EXAMINATION: GENERAL: The patient does not appear in any acute distress. HEENT: Oral cavity is moist. LUNGS: Air entry bilaterally equal with occasional end-expiratory wheezes. No crackles. CARDIOVASCULAR: S1, S2 normal. No murmur, rub, or gallop. Appears sinus on bedside monitor. ABDOMEN: Soft, nontender. EXTREMITIES: Bilateral lower extremity edema. IMAGING: No imaging. On the chest x-ray, he does have bilateral what appears to be lower lobe infiltrate; however, comparing with previous CT scan, it does look like mild degree of fibrosis. LABS: Suggestive of anemia, which appears to be chronic now. He does have monocytosis and neutrophilia. ABG suggestive of close to normal pH and normal kidney function. Blood cultures and lab sputum culture has been ordered. ASSESSMENT AND PLAN: 1. Acute on chronic hypoxic respiratory failure. 2. Mild acute chronic obstructive pulmonary disease exacerbation, likely because of viral bronchitis. 3. Recent episode of gastrointestinal bleed and symptomatic anemia. 4. History of paroxysmal atrial fibrillation. No longer on anticoagulation. 5. History of iag-terveah-[id number] diabetes mellitus. PLAN: I will admit patient on medical floor and will give him albuterol/ipratropium nebulization. I will also start him on intravenous levofloxacin and intravenous methylprednisolone. I will follow up with blood culture and sputum culture results. 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 DISPOSITION: I will continue to monitor patient on medical floor. I will also start him on pantoprazole for GI prophylaxis considering he is on high dose of steroids, and he is already on home omeprazole. I also consider enoxaparin for DVT prophylaxis. Plan of care discussed with him. All of his questions have been answered. cc: Hiram Carbajal MD
[2019-01-08] MEDS: PULMICORT INH SCH ×3 (05:50→19:37)
[2019-01-08] MEDS: SOLU-MEDROL IV SCH (06:14)
[2019-01-08] MEDS: PRILOSEC PO SCH (06:14)
[2019-01-08] MEDS: HUMULIN R SUBQ SCH ×4 (06:15→21:34)
[2019-01-08 07:54] LABS: BASO# 0.01 X1000 (0.0-0.2); BASO% 0.3 % (0.0-0.8); HEMATOCRIT 28.5 % (42.0-52.0); IMM GRAN# 0.02 X1000 (0.0-0.04); IMM GRAN% 0.6 % (0.0-0.5); LYMPH% 12.3 % (20.5-51.1); MCH 32.1 PG (27-31); MCHC 31.6 g/dL (33-37); MCV 101.8 FL (81-99); MONO# 0.36 X1000 (0.11-0.59); MONO% 11.1 % (1.7-9.3); MPV 9.3 FL (7.4-10.4); NEUT# 2.45 X1000 (1.4-6.5); NEUT% 75.7 % (42.2-75.2); PLT 317 X1000 (130-400); RDW 17.8 % (11.5-14.5); WBC 3.24 X1000 (4.8-10.8)
[2019-01-08 08:16] LABS: AGAP 11; ALB/GLOB RATIO 0.9; ALBUMIN 3.2 g/dL (3.5-5.0); ALKALINE PHOSPHATASE 57 U/L (32-122); BUN 11 mg/dL (8-22); CHLORIDE 94 mmol/L (98-107); COSMO 267; CREATININE 0.6 mg/dL (0.7-1.2); ESTIMATED GFR > 60; GLUCOSE 216 mg/dL (70-104); GOT 9 U/L (10-34); GPT 11 U/L (10-44); POTASSIUM 4.3 mmol/L (3.5-5.1); SODIUM 130 mmol/L (136-145); TCO2 25 mmol/L (25-35); TOTAL BILIRUBIN 0.24 mg/dL (0.20-1.00); TOTAL PROTEIN 6.8 g/dL (6.3-8.3)
--- NOTE | 2019-01-08 08:54 | Diag Imaging Result Doc PS360 ---
EXAM: CHEST-2 VIEWS HISTORY: Pneumonia TECHNIQUE: Chest two views COMPARISON: 01/07/2019 FINDINGS: The lungs are hyperexpanded. No cardiomegaly. Mild increased interstitial markings. No consolidation. Tiny pleural effusions. IMPRESSION: Emphysema with mild pulmonary edema versus fibrosis. Likely tiny underlying infiltrate in the left base. Electronically signed by Domenico Ayoub 01/08/2019 8:52 AM
[2019-01-08] MEDS: ASPIRIN PO SCH (09:49)
[2019-01-08] MEDS: CORDARONE PO SCH (09:49)
[2019-01-08] MEDS: CENTRUM SILVER PO SCH (09:49)
--- NOTE | 2019-01-08 16:00 | PROGRESS NOTE ---
DATE: 01/08/2019 SUBJECTIVE: Awake, not in any obvious distress. OBJECTIVE: Vital signs: Temperature 97.8 degrees, pulse 81, respiratory rate 16. Blood pressure is 120/47. Oxygen saturation 99%. HEENT: Atraumatic, normocephalic. Cardiovascular: S1, S2. Respiratory system: Has evidence of good air entry bilaterally. Abdomen: Soft, nontender. No masses felt. Extremities: No edema. Central Nervous System: No obvious focal deficit noted. LABS: WBC 3.24, hematocrit 28.5 Sodium is 130, potassium 4.3, chloride is 94, bicarb 25, BUN is 11, creatinine 0.6. ASSESSMENT AND PLAN: 1. Acute on chronic respiratory failure. Maintain patient on supplemental oxygen. 2. Chronic obstructive pulmonary disease. Continue nebulized bronchodilators along with steroids and also antibiotics. 3. Hypertension. Controlled. 4. Diabetes mellitus. Continue blood sugar monitoring as well as sliding scale insulin. 5. Congestive heart failure. Stable. 6. Deep vein thrombosis prophylaxis. Sequential compression devices. 7. Atrial fibrillation. Continue amiodarone. 8. Probable pneumonia. Repeat chest x-ray. cc: Ben Jenkins MD [facility]
[2019-01-08] MEDS: ANUSOL-HC CREAM PR SCH (21:32)
[2019-01-08] MEDS: METAMUCIL POWDER PACKET PO SCH (21:33)
[2019-01-08] MEDS: PRAVACHOL PO SCH (21:34)
[2019-01-08] MEDS: AMBIEN PO PRN (21:39)
[2019-01-09] MEDS: DUONEB (A & A) INH SCH ×7 (00:09→23:00)
[2019-01-09] MEDS: PRILOSEC PO SCH (06:24)
[2019-01-09] MEDS: SOLU-MEDROL IV SCH (06:25)
[2019-01-09] MEDS: HUMULIN R SUBQ SCH ×4 (06:28→21:33)
[2019-01-09 07:01] LABS: BASO# 0.03 X1000 (0.0-0.2); BASO% 0.3 % (0.0-0.8); EOS# 0.01 X1000 (0.0-0.7); EOS% 0.1 % (0.0-10.0); HEMATOCRIT 29.4 % (42.0-52.0); HEMOGLOBIN 9.3 g/dL (14.0-18.0); IMM GRAN# 0.03 X1000 (0.0-0.04); IMM GRAN% 0.3 % (0.0-0.5); LYMPH# 1.09 X1000 (1.2-3.4); LYMPH% 9.8 % (20.5-51.1); MCH 32.2 PG (27-31); MCHC 31.6 g/dL (33-37); MCV 101.7 FL (81-99); MONO# 1.38 X1000 (0.11-0.59); MONO% 12.5 % (1.7-9.3); MPV 9.2 FL (7.4-10.4); NEUT# 8.53 X1000 (1.4-6.5); PLT 371 X1000 (130-400); RBC 2.89 XMIL (4.7-6.1); RDW 17.9 % (11.5-14.5); WBC 11.07 X1000 (4.8-10.8)
[2019-01-09 07:13] LABS: AGAP 10; ALB/GLOB RATIO 0.9; ALBUMIN 3.3 g/dL (3.5-5.0); ALKALINE PHOSPHATASE 53 U/L (32-122); BUN 11 mg/dL (8-22); CALCIUM 9.5 mg/dL (8.8-10.2); CHLORIDE 99 mmol/L (98-107); COSMO 277; CREATININE 0.6 mg/dL (0.7-1.2); ESTIMATED GFR > 60; GLUCOSE 170 mg/dL (70-104); GOT 11 U/L (10-34); GPT 12 U/L (10-44); POTASSIUM 4.1 mmol/L (3.5-5.1); SODIUM 137 mmol/L (136-145); TCO2 28 mmol/L (25-35); TOTAL BILIRUBIN 0.21 mg/dL (0.20-1.00); TOTAL PROTEIN 7.1 g/dL (6.3-8.3)
--- NOTE | 2019-01-09 07:35 | Diag Imaging Result Doc PS360 ---
EXAM: CHEST-1 VIEW HISTORY: copd TECHNIQUE: Portable chest single view COMPARISON: 01/08/2019 FINDINGS: The lungs are hyperexpanded. The heart is not enlarged. The vessels are not distended. There are mild increased interstitial markings similar to the prior study. No consolidation. Small infiltrate in the left base persists. No effusion identified. IMPRESSION: Stable chest. Electronically signed by Domenico Ayoub 01/09/2019 7:33 AM
[2019-01-09] MEDS: PULMICORT INH SCH ×2 (07:58→19:25)
[2019-01-09] MEDS: CENTRUM SILVER PO SCH (09:21)
[2019-01-09] MEDS: CORDARONE PO SCH (09:21)
[2019-01-09] MEDS: ASPIRIN PO SCH (09:21)
[2019-01-09] MEDS: ANUSOL-HC CREAM PR SCH ×2 (12:37→23:22)
--- NOTE | 2019-01-09 15:53 | PROGRESS NOTE ---
DATE: 01/09/2019 SUBJECTIVE: The patient is awake, not in any obvious distress. OBJECTIVE: Vital signs: Temperature is 97.7 degrees, pulse 88, respirations 18, blood pressure is 112/57, and oxygen saturation 97%. HEENT: Atraumatic, normocephalic. Cardiovascular: S1, S2. Respiratory: There is evidence of good air entry bilaterally. Abdomen: Soft, nontender. No masses felt. Extremities: No evidence of edema. Central nervous system: No obvious focal deficits noted. LABORATORY: WBC is 11.07, hematocrit 29.4 with a platelet count of 376,000. Chemistry: Sodium is 137, potassium 4.1, chloride is 99, bicarb is 28, BUN is 11, and creatinine 0.6. X-ray of the chest shows a small infiltrate in the left base which still persists. ASSESSMENT AND PLAN: 1. Acute on chronic respiratory failure. Maintain patient on supplemental oxygen. 2. Chronic obstructive pulmonary disease. Continue nebulized bronchodilators along with steroids. 3. Probable pneumonia. Maintain patient on antibiotics. Follow up on sputum as well as blood cultures. 4. Hypertension. Controlled. 5. Diabetes mellitus. Continue blood sugar medications as well as sliding scale insulin. 6. Congestive heart failure. Stable. 7. Deep vein thrombosis prophylaxis. Sequential compression devices. 8. Atrial fibrillation. Heart rate is controlled. Continue patient on amiodarone. 9. Gastrointestinal prophylaxis. PPI. cc: Ben Jenkins MD
[2019-01-09] MEDS: NON-FORMULARY BULK MED INH SCH (16:47)
[2019-01-09] MEDS: LEVAQUIN 750 MG/D5W 750 MG/150 ML IVPB IV SCH ×2 (17:00→17:05)
[2019-01-09] MEDS: FLONASE NAS SCH ×2 (17:13→17:14)
[2019-01-09] MEDS: PRAVACHOL PO SCH (21:33)
[2019-01-09] MEDS: METAMUCIL POWDER PACKET PO SCH (23:22)
[2019-01-10] MEDS: DUONEB (A & A) INH SCH ×7 (03:00→22:45)
[2019-01-10] MEDS: SOLU-MEDROL IV SCH (06:28)
[2019-01-10] MEDS: PRILOSEC PO SCH (06:28)
[2019-01-10] MEDS: HUMULIN R SUBQ SCH ×4 (06:28→21:19)
[2019-01-10] MEDS: PULMICORT INH SCH ×2 (07:25→19:25)
[2019-01-10 08:24] LABS: HEMATOCRIT 28.9 % (42.0-52.0); MCH 32.4 PG (27-31); RBC 2.78 XMIL (4.7-6.1); WBC 8.84 X1000 (4.8-10.8)
[2019-01-10 08:25] LABS: BASO# 0.02 X1000 (0.0-0.2); BASO% 0.2 % (0.0-0.8); EOS# 0.01 X1000 (0.0-0.7); EOS% 0.1 % (0.0-10.0); IMM GRAN# 0.03 X1000 (0.0-0.04); IMM GRAN% 0.3 % (0.0-0.5); LYMPH# 1.28 X1000 (1.2-3.4); LYMPH% 14.5 % (20.5-51.1); MCHC 31.1 g/dL (33-37); MONO# 1.08 X1000 (0.11-0.59); MONO% 12.2 % (1.7-9.3); MPV 9.2 FL (7.4-10.4); NEUT# 6.42 X1000 (1.4-6.5); NEUT% 72.7 % (42.2-75.2); PLT 408 X1000 (130-400); RDW 18.2 % (11.5-14.5)
[2019-01-10 08:30] LABS: AGAP 8; ALBUMIN 3.4 g/dL (3.5-5.0); ALKALINE PHOSPHATASE 53 U/L (32-122); BUN 15 mg/dL (8-22); CALCIUM 8.8 mg/dL (8.8-10.2); CHLORIDE 97 mmol/L (98-107); COSMO 277; CREATININE 0.7 mg/dL (0.7-1.2); ESTIMATED GFR > 60; GLUCOSE 176 mg/dL (70-104); GOT 10 U/L (10-34); GPT 14 U/L (10-44); POTASSIUM 3.9 mmol/L (3.5-5.1); SODIUM 136 mmol/L (136-145); TCO2 31 mmol/L (25-35); TOTAL BILIRUBIN 0.18 mg/dL (0.20-1.00); TOTAL PROTEIN 6.7 g/dL (6.3-8.3)
--- NOTE | 2019-01-10 08:37 | EKG Report ---
Test Performed on : 01/07/2019 3:03:38 PM Test Reason : SOB Blood Pressure : / mmHG Vent. Rate : 093 BPM Atrial Rate : 093 BPM P-R Int : 170 ms QRS Dur : 144 ms QT Int : 402 ms P-R-T Axes : 062 081 059 degrees QTc Int : 499 ms Normal sinus rhythm. Right bundle branch block Abnormal ECG When compared with ECG of 27-DEC-2018 13:55, (Unconfirmed) QRS axis shifted right Unconfirmed Result
[2019-01-10] MEDS: FLONASE NAS SCH (08:57)
[2019-01-10] MEDS: CORDARONE PO SCH (08:58)
[2019-01-10] MEDS: CENTRUM SILVER PO SCH (08:58)
[2019-01-10] MEDS: ANUSOL-HC CREAM PR SCH ×2 (08:58→21:21)
[2019-01-10] MEDS: ASPIRIN PO SCH (08:58)
[2019-01-10] MEDS: NON-FORMULARY BULK MED INH SCH ×2 (10:56→11:15)
[2019-01-10] MEDS: LEVAQUIN 750 MG/D5W 750 MG/150 ML IVPB IV SCH ×2 (17:45→17:55)
--- NOTE | 2019-01-10 20:19 | PROGRESS NOTE ---
DATE: 01/10/2019 SUBJECTIVE: The patient is resting comfortably in bed. He does complain of shortness of breath. OBJECTIVE: Vital Signs: Temperature 97.3 degrees, blood pressure 143/51, heart rate 90, respirations 17, and O2 saturation 99% on 4 L nasal cannula. General: This is an elderly male lying in bed, in no acute distress. Heart: S1, S2. Normal. Lungs: Equal air entry bilaterally. Abdomen: Positive bowel sounds. Soft, nontender, nondistended. Extremities: No edema. No cyanosis. Neurologic: The patient is awake and alert. LABORATORY DATA: Hemoglobin 9, hematocrit 28, platelets 408,000. Sodium 136, potassium 3.9, chloride 97, CO2 of 31, BUN 15, creatinine 0.7, glucose 176. ASSESSMENT AND PLAN: 1. Acute hypoxemic respiratory failure. We will continue to treat the underlying pneumonia. Continue with bronchodilator therapy and supplemental oxygen. 2. Pneumonia. Continue with antibiotic therapy. 3. Chronic obstructive pulmonary disease exacerbation. Continue bronchodilator therapy, antibiotics, and intravenous steroid therapy. 4. Atrial fibrillation. Continue on amiodarone. 5. Constipation. Continue on scheduled laxative therapy. 6. Diabetes mellitus type 2. Continue on sliding scale insulin. 7. Anemia. Continue on iron supplementation. cc: Opal Trejo MD
[2019-01-10] MEDS: PRAVACHOL PO SCH (21:19)
[2019-01-10] MEDS: METAMUCIL POWDER PACKET PO SCH (21:21)
[2019-01-11] MEDS: DUONEB (A & A) INH SCH ×3 (03:00→10:36)
[2019-01-11 05:14] LABS: ALLEN TEST YES; BE 7.6 mmoll (-3.0-3.0); BLOOD TYPE ARTERIAL; HCO3-(ACT) 30.8 mmoll (20.0-26.0); METHB 0.8 % (0.0-1.5); O2(CT) 11.8 mL/dL (15.0-23.0); O2HB 95.2 % (95.0-99.0); PO2(98.6) 92 mmHg (60-100); SAMPLE BLOOD; SAO2 97.1 % (95.0-100.0); THB 8.7 g/dL (11.5-17.4)
[2019-01-11 05:16] LABS: MODALITY CANNULA
[2019-01-11 05:17] LABS: PCO2(98.6) 54 mmHg (35-45)
[2019-01-11] MEDS: PRILOSEC PO SCH (06:14)
[2019-01-11] MEDS: SOLU-MEDROL IV SCH (06:14)
[2019-01-11] MEDS: HUMULIN R SUBQ SCH ×2 (06:16→11:15)
--- NOTE | 2019-01-11 06:47 | Diag Imaging Result Doc PS360 ---
EXAM: CHEST-PORTABLE HISTORY: dyspnea TECHNIQUE: Portable chest single view COMPARISON: 01/09/2019 FINDINGS: The lungs are hyperexpanded. No cardiomegaly. There are mild increased interstitial markings believed to be mild pulmonary edema. No consolidation. No pleural effusions identified. IMPRESSION: Stable chest Electronically signed by Domenico Ayoub 01/11/2019 6:45 AM
[2019-01-11] MEDS: PULMICORT INH SCH (07:18)
[2019-01-11] MEDS: NON-FORMULARY BULK MED INH SCH (07:19)
[2019-01-11] MEDS: FLONASE NAS SCH (08:07)
[2019-01-11] MEDS: ASPIRIN PO SCH (08:08)
[2019-01-11] MEDS: CORDARONE PO SCH (08:08)
[2019-01-11] MEDS: CENTRUM SILVER PO SCH (08:08)
[2019-01-11 08:09] LABS: HEMOGLOBIN 9.5 g/dL (14.0-18.0); RBC 2.97 XMIL (4.7-6.1); WBC 9.51 X1000 (4.8-10.8)
[2019-01-11 08:10] LABS: HEMATOCRIT 30.8 % (42.0-52.0); MCHC 30.8 g/dL (33-37); MCV 103.7 FL (81-99); MPV 9.1 FL (7.4-10.4)
[2019-01-11 08:11] VITALS: BP 133/58
[2019-01-11 08:27] LABS: AGAP 8; BUN 15 mg/dL (8-22); CALCIUM 8.9 mg/dL (8.8-10.2); CHLORIDE 96 mmol/L (98-107); COSMO 277; CREATININE 0.6 mg/dL (0.7-1.2); ESTIMATED GFR > 60; GLUCOSE 139 mg/dL (70-104); SODIUM 137 mmol/L (136-145); TCO2 33 mmol/L (25-35)
[2019-01-11] MEDS: ANUSOL-HC CREAM PR SCH (11:15)
--- NOTE | 2019-01-16 05:51 | DISCHARGE SUMMARY ---
ADMISSION DATE: 01/07/2019 DISCHARGE DATE: 01/11/2019 FINAL DISCHARGE DIAGNOSES: 1. Acute hypoxemic respiratory failure. 2. Pneumonia. 3. Chronic obstructive pulmonary disease exacerbation. 4. Atrial fibrillation. 5. Diabetes mellitus type 2. 6. Constipation. 7. Iron deficiency anemia. 8. Morbid obesity 9. Hypertension 10. GERD IMAGING: Chest x-ray performed on 01/07/2019 that revealed left basilar infiltrates with pulmonary edema. HOSPITAL COURSE: Mr. Loving is a 63-year-old male with a history of chronic obstructive pulmonary disease and diabetes who presented to the ER with a chief complaint of shortness of breath and fever. On admission a chest x-ray was done that revealed pneumonia. The patient was then admitted to the hospitalist service. Blood cultures were obtained and the patient was started on broad-spectrum antibiotics, bronchodilator therapy and supplemental oxygen. Slowly over the course of the hospitalization the patient's respiratory status improved. A repeat chest x-ray was done that showed no evidence of further infiltrative processes. The patient continued to improve clinically and was cleared for discharge home on 01/11/2019. DISCHARGE MEDICATIONS: 1. Medrol Dosepak, use as directed. 2. Aspirin 81 mg p.o. daily. 3. Augmentin 875/125 mg 1 tab oral twice a day x5 days. 4. Lisinopril/hydrochlorothiazide 1 tab oral daily. 5. Pravachol 40 mg p.o. at bedtime. 6. Amiodarone 200 mg p.o. daily. 7. Albuterol inhaler 2 puffs every 6 hours p.r.n. 8. Metformin 1000 mg oral. 9. Ambien 10 mg oral at bedtime. 10. Glucotrol XL 5 mg oral daily. 11. Trilogy Ellipta 1 inhalation daily. 12. Flonase 1 spray intranasal daily. 13. Multivitamin 1 tab oral daily. 14. Icar-C 1 tab oral twice a day. 15. Spiriva 2.5 mcg inhaled daily. 16. Metamucil 1 tablespoon at bedtime. 17. Omeprazole 20 mg p.o. daily. DISCHARGE DIET: 1800 ADA diet. ACTIVITY: As tolerated. FOLLOWUP INSTRUCTIONS: The patient will need to follow up with Dr. Hartmann in 1 week. cc: MD Opal Mason MD [facility]
== END 2019-01-11 15:26 | disposition home or self-care (01) | DRG 193 ==
LOC: SUPCPDRO → ED 14:36 → 3N 20:59 → SUATTDRO 20:59
PROVIDERS: ATTEND Internal Medicine
CPT/HCPCS: 71010; 71020; 71045; 71046; 80048; 80053; 82550; 82805; 82948; 83880; 84484; 85025; 85027; 85379; 85610; 85730; 87040; 93005; 94640; 94761; 96365; 96366; 96375; 99285; A9270; J1956; J2920; J2930; J7030; XXXXX

== ENCOUNTER 2019-01-23 18:05 | Inpatient (IN) ==
[~2019-01-23 18:05] MED LIST: ROCEPHIN 1 GM in NS 50 ML IV ONE
[2019-01-23 18:32] LABS: BLOOD TYPE ARTERIAL; HCO3-(ACT) 28.6 mmoll (20.0-26.0); METHB 0.8 % (0.0-1.5); O2(CT) 13.4 mL/dL (15.0-23.0); PCO2(98.6) 40 mmHg (35-45); PO2(98.6) 56 mmHg (60-100); SAMPLE BLOOD; SAO2 91.6 % (95.0-100.0); pH(98.6) 7.47 (7.35-7.45)
[2019-01-23 18:33] LABS: ALLEN TEST YES; MODALITY CANNULA
[2019-01-23 18:34] LABS: O2HB 86.4 % (95.0-99.0)
--- NOTE | 2019-01-23 18:46 | PROVIDER DOCUMENTATION ---
This chart was entered by Marli Reyna Scribe, acting as scribe for Edwin Wilson MD. HPI-Respiratory General - General Source: patient - History of Present Illness-Resp Quality of Pain: reports: none Severity in ED: reports: mild Timing: reports: still present Context: reports: other (recent pneumonia) Cough Quality/Degree: reports: moderate Episode Frequency: occasional episodes Current Respiratory Medication Therapy: Initiated albuterol (albuterol neb tx enroute by EMS) Modifying Factors: improves with: exertion (worsens), albuterol nebulizer (improved), lying down (worsens), oxygen (improved) Associated Symptoms: reports: cough, fever/chills, shortness of breath. denies: nasal congestion, wheezing Similar Symptoms Previously?: Yes Recently seen or treated by another doctor?: Yes <Edwin Wilson - Last Filed: 01/23/19 22:37> <Chely Cleary - Last Filed: 01/23/19 22:42> - General Chief Complaint: Shortness of Breath Stated Complaint: SOB Time Seen by Provider: 01/23/19 18:05 Allergies/Adverse Reactions: Patient Allergies Allergy/AdvReac Type Severity Reaction Status Date / Time pneumococcal vaccine Allergy Unknown Verified 01/07/19 18:13 roflumilast [From Daliresp] AdvReac DIZZINESS Verified 01/07/19 18:13 Home Medications: Home Medication List Medication Instructions Recorded Confirmed Last Taken Type Amiodarone [Cordarone] 200 mg PO DAILY 12/06/15 01/07/19 10/12/18 07:00 History Lisinopril/Hydrochlorothiazide 1 each PO DAILY 12/06/15 01/07/19 10/12/18 07:00 History [Lisinopril-Hctz 20-25 mg Tab] PRAVAstatin [Pravachol] 40 mg PO QHS 12/06/15 01/07/19 10/12/18 07:00 History Albuterol Sulfate Inhaler 2 puff INH Q6H PRN PRN 06/29/17 01/07/19 10/13/18 07:00 History [Ventolin Hfa] Ipratropium/Albuterol Sulfate 3 ml IH DAILY PRN 06/29/17 01/07/19 10/13/18 History [Iprat-Albut 0.5-3(2.5) mg/3 ml] Fluticasone 50 Mcg Nasal [place] 1 spray INTRANASAL DAILY 12/28/18 01/07/19 Unknown History [Flonase] Fluticasone/Umeclidin/Vilanter 1 ea INH DAILY 12/28/18 01/07/19 Unknown History [Trelegy Ellipta 100-62.5-25] Glipizide E.r. [Glucotrol Xl] 5 mg PO DAILY 12/28/18 01/07/19 Unknown History Metformin HCl 1,000 mg PO DAILY 12/28/18 01/07/19 Unknown History Zolpidem [Ambien] 10 mg PO QHS PRN 12/28/18 01/07/19 Unknown History Iron Carbonyl/Ascorbic Acid 1 ea PO BID #120 tab 12/30/18 01/07/19 Unknown Rx [Icar-C] Multivitamins/Minerals [Centrum 1 ea PO DAILY #120 tab 12/30/18 01/07/19 Unknown Rx Silver] Omeprazole 20 mg PO DAILY #120 tab.rap.dr 12/30/18 01/07/19 Unknown Rx Psyllium [Metamucil Powder Packet] 1 ea PO QHS #120 packet 12/30/18 01/07/19 Un known Rx Tiotropium [place] [Spiriva 2.5 mcg INHALATION DAILY #1 12/30/18 01/07/19 Unknown Rx Respimat] mist.inhal Amoxicillin/Potassium Clav 1 ea PO BID #10 tab 01/11/19 Unknown Rx [Augmentin 875-125 Tablet] Aspirin 81 mg PO DAILY chewtab 01/11/19 Unknown Rx Methylprednisolone [Medrol Dosepak] 4 mg PO DIRECTED #1 pkg 01/11/19 Unknown Rx - History of Present Illness-Resp Nature of Presenting Problem: pt is a 63 yr old male presenting via EMS with 2 day complaint of increased shortness of breath and fever, pt reports recently admitted with pneumonia, discharged 1 week ago. pt reports improvement with albuterol tx enroute. pt admits max temp 102 at home. pt denies chest pain. no other complaints (Edwin Wilson) Review of Systems - Adult - REVIEW OF SYSTEMS - ADULT Constitutional: reports: chills, fever, fatique Eyes: reports: no symptoms reported Ears, Nose, Mouth & Throat: reports: no symptoms reported Cardiovascular: denies: chest pain, palpitations, syncope Respiratory: reports: cough, dyspnea on exertion, shortness of breath, wheezing Gastrointestinal: denies: abdominal pain, diarrhea, nausea, vomiting Genitourinary: reports: no symptoms reported Musculoskeletal: reports: no symptoms reported Integumentary: reports: no symptoms reported Neurological: denies: dizziness/vertigo, headache/migraines, syncope Psychiatric: reports: no symptoms reported Endocrine: reports: no symptoms reported Hematologic/Lymphatic: reports: no symptoms reported Allergic/Immunologic: reports: no symptoms reported All Other Systems: Reviewed and Negative <Edwin Wilson - Last Filed: 01/23/19 22:37> Past History - Adult - PAST MEDICAL HISTORY-ADULT Review of Records: reports: Old Records Reviewed, Nursing Assessment Review, Medications Reviewed, Social history reviewed & non-contributory. Major Childhood Illnesses: reports: denies history Cardiovascular: reports: A-Fib, CHF, HTN, hyperlipidemia Respiratory: reports: COPD Gastrointestinal: reports: denies history Obstetrical/Gynecological: reports: denies history Genitourinary: reports: denies history Musculoskeletal: reports: denies history Neurological: reports: denies history Endocrine/Immune: reports: Diabetes Other Conditions: reports: denies history - PRIOR SURGERIES/PROCEDURES Surgical/Procedure History: reports: reviewed, not pertinent, appendectomy - IMMUNIZATION STATUS Childhood Immunizations: See Nurse Assessment Flu Vaccine: See Nurse Assessment - FAMILY HISTORY Family History: reviewed, not pertinent - SOCIAL HISTORY Smoking: cigarettes, cigar Provider spent 3-5 mins advising pt. on dangers of tobacco.: Discussed manners to quit use, and f/u contacts for add'l counseling. Substance Use: denies Living Situation: alone <Edwin Wilson - Last Filed: 01/23/19 22:37> Physical Exam-General - PHYSICAL EXAM-ADULT Initial Vital Signs Reviewed: Yes - CONSTITUTIONAL General Appearance: alert, no apparent distress, obese - EYES Eyes: PERRL/EOMI - HEAD, EARS, NOSE, MOUTH & THROAT HENMT: moist mucous membranes, normal ENT inspection - NECK Neck: non-tender, full range of motion, supple, normal inspection - RESPIRATORY Respiratory: chest non-tender, lungs clear, no pleuratic chest pain, no respiratory distress, no accessory muscle use, decreased breath sounds (bilaterally) - CARDIOVASCULAR Cardiovascular: normal peripheral pulses, tachycardia - GASTROINTESTINAL (ABDOMEN) Abdominal Exam: normal bowel sounds, non tender, soft - LYMPHATIC Lymphatic: no adenopathy - MUSCULOSKELETAL Back Exam: normal inspection, no CVA tenderness, no vertebral tenderness Extremity: normal range of motion, non-tender, normal gait, normal inspection - SKIN Integumentary: normal color, normal turgor, warm/dry - NEUROLOGIC Neurologic: grossly normal - PSYCHIATRIC Psych/Mental Status: normal mood/affect <Edwin Wilson - Last Filed: 01/23/19 22:37> Progress - PLAN OF CARE/RESULTS Result Diagrams: 01/23/19 18:12 01/23/19 18:12 - EKG 1 Time of EKG reading by physician:: 17:57 EKG Read and Signed by:: Edwin Wilson EKG Interpretation (*Must complete 3 of following elements*): Abnormal (indeterminate axis) Rate: 103 Rhythm: sinus tach QRS: RBB [place] Interval: normal ST Wave: normal - XRAY 1 XRAY Study: Chest Impression: Abnormal ( Signed CHEST-1 VIEW - 01/23/2019 INDICATION: sob COMPARISON: 01/11/2019 FINDINGS: Stable COPD changes. Stable ill-defined increased interstitial markings bilaterally. No pneumothorax or pleural effusio n. Heart size remains normal. IMPRESSION: No change from prior. Electronically signed by Tex Mendosa 01/23/2019 8:28 PM 01/23/192027 Interpreting Physician: Tex Mendosa MD Dictated Date/Time: 01/23/192026 cc: Edwin Wilson MD; Tali Hartmann MD) Comparison with other Films: no changes (01/11/19) - CONSULTS/PCP/HOSPITALIST Notification #1 *Consult/PCP/Hospitalist*: Dr Cisneros Time Discussed: 22:35 Reason/Comments: discussed plan of care for pt admission Consult Disposition: Admit - CHANGE OF SHIFT REPORT (ED Provider) 1 Report Given and Care Transferred to:: Dr Cleary Time of Transfer: 19:00 Items Pending: Labs, XRAY Results <Edwin Wilson - Last Filed: 01/23/19 22:37> - PLAN OF CARE/RESULTS Result Diagrams: 01/23/19 18:12 01/23/19 18:12 - REASSESSMENT Reassessment #1 Status: other (pt signed out to me by Dr. Wilson pending labs and CXR results. Pt with elevated bnp and pulmonary edema on cxr. Lasix given but remains dyspnic with hypoxia with ambulation will admit for further evaluation and treatmetn. Discussed case with Dr. Cisneros, hospitalist, who requests pt be admitted and will see pt in the hospital.) <Chely Cleary - Last Filed: 01/23/19 22:42> - PLAN OF CARE/RESULTS Progress/Plan/Lab Results: Vital Signs - 8 hr 01/23/19 17:52 Temperature 98.9 F Pulse Rate 105 H Respiratory Rate 19 Blood Pressure 123/63 O2 Sat by Pulse Oximetry 92 L Laboratory Results - last 24 hr 01/23/19 01/23/19 01/23/19 18:12 18:12 18:12 WBC 8.30 RBC 2.48 L Hgb 8.0 L Hct 25.7 L MCV 103.6 H MCH 32.3 H MCHC 31.1 L RDW Std Deviation 17.2 H Plt Count 312 MPV 9.5 Immature Gran % (Auto) 0.2 Neut % (Auto) 77.3 H Lymph % (Auto) 11.0 L [place] % (Auto) 9.6 H Eos % (Auto) 1.1 Baso % (Auto) 0.8 Immature Gran # (Auto) 0.02 Neut # (Auto) 6.41 Lymph # (Auto) 0.91 L [place] # (Auto) 0.80 H Eos # (Auto) 0.09 Baso # (Auto) 0.07 Specimen Type Sample Site pH pCO2 pO2 HCO3 Base Excess Oxyhemoglobin ABG O2 Sat (Calculated) ABG O2 Saturation ABG Carboxyhemoglobin ABG Methemoglobin Javier Test A-a O2 Difference Total Hemoglobin Lactate Liter Flow Blood Gas Modality FiO2 % Sodium 138 Potassium 3.5 Chloride 98 Carbon Dioxide 27 Anion Gap 13 BUN 9 Creatinine 0.4 L Estimated GFR/1.73 m2 > 60 BUN/Creatinine Ratio 23 Glucose 133 H Calculated Osmolality 276 Calcium 8.2 L Total Bilirubin 0.30 AST 12 ALT 11 Alkaline Phosphatase 62 Troponin T < 0.010 Til-E-Rzzrjjsgujd Pept Total Protein 5.7 L Albumin 2.9 L Globulin 3.0 Albumin/Globulin Ratio 1.0 01/23/19 01/23/19 18:12 18:15 WBC RBC Hgb Hct MCV MCH MCHC RDW Std Deviation Plt Count MPV Immature Gran % (Auto) Neut % (Auto) Lymph % (Auto) [place] % (Auto) Eos % (Auto) Baso % (Auto) Immature Gran # (Auto) Neut # (Auto) Lymph # (Auto) [place] # (Auto) Eos # (Auto) Baso # (Auto) Specimen Type ARTERIAL Sample Site L RADIAL pH 7.47 H pCO2 40 pO2 56 L HCO3 28.6 H Base Excess 5.0 H Oxyhemoglobin 86.4 L* ABG O2 Sat (Calculated) 13.4 L ABG O2 Saturation 91.6 L ABG Carboxyhemoglobin 4.90 H ABG Methemoglobin 0.8 Javier Test YES A-a O2 Difference 151.0 Total Hemoglobin 11.0 L Lactate 0.90 Liter Flow 4.0 Blood Gas Modality CANNULA FiO2 % 36.0 Sodium Potassium Chloride Carbon Dioxide Anion Gap BUN Creatinine Estimated GFR/1.73 m2 BUN/Creatinine Ratio Glucose Calculated Osmolality Calcium Total Bilirubin AST ALT Alkaline Phosphatase Troponin T Cjl-K-Ogqeqfiajzg Pept 1382 H Total Protein Albumin Globulin Albumin/Globulin Ratio Orders Category Date Time Status Admit - [facility] Routine AdmDCTranf 01/23/19 22:37 Active Activity - Bed Rest with BRP ORDERED Care 01/23/19 22:37 Active Call Admitting on Arrival AT ADMISSION Care 01/23/19 22:38 Active Saline Loc DIRECTED Care 01/23/19 22:37 Active Vital Signs Order ROUTINE Care 01/23/19 22:37 Active Z-Document. for Tele Applied ORDERED Care 01/23/19 22:38 Active Heart Healthy Diet Diet 01/23/19 22:38 Active cxr [CHEST-1 VIEW] [RAD] Stat Exams 01/23/19 17:57 Completed ABG [RESP] Routine Lab 01/23/19 18:15 Completed BLOOD CULTURE [BLDCUL] Stat Lab 01/23/19 18:25 Results CBC WITH ELECTRONIC DIFF [HEME] Stat Lab 01/23/19 18:12 Completed COMPREHENSIVE METABOLIC PANEL [CHEM] Stat Lab 01/23/19 18:12 Completed PRO B-NATRIURETIC PEPTIDE Stat Lab 01/23/19 18:12 Completed TROPONIN T Stat Lab 01/23/19 18:12 Completed CefTRIAXONE [Rocephin] 1 gm Med 01/23/19 18:05 Discontinued 0.9% Sodium Chloride Inj [Ns] 50 ml IV NOW Furosemide [Lasix] Med 01/23/19 20:14 Discontinued 40 mg IV NOW ONE Nitroglycerin Med 01/23/19 22:37 Discontinued 0.5 inch TOP NOW ONE Oxygen Device Routine Oth 01/23/19 22:38 Active Telemetry [OM.EQ] Routine Oth 01/23/19 22:37 Active Transfer/Admit Order [TRANSFER] Routine Transfer 01/23/19 22:39 Ordered Departure <Edwin Wilson - Last Filed: 01/23/19 22:37> - Departure Date of Disposition Decision: 01/23/19 Time of Disposition Decision: 22:42 Certified Medical Emergency: Emergent - Critical Care Note This patient required my direct & personal management of CC.: No <Chely Cleary - Last Filed: 01/23/19 22:42> - Departure DIAGNOSIS: CHF exacerbation Qualifiers: Heart failure type: unspecified Qualified Code(s): I50.9 - Heart failure, unspecified Disposition: ADMITTED INPATIENT 09 Condition: Fair Attestation - Physician/ PATTIE Attestation Patient care was provided by Advanced Practice Provider:: No The physician spent face to face time with patient:: Yes Advanced Practice Provider documentation review:: Supervising physician onsite and consulted in the evaluation and care of this patient. The physician did have a face to face encounter with the patient. <Chely Cleary - Last Filed: 01/23/19 22:42> This chart was documented by the indicated scribe, (Marli Reyna Scribe) and accurately reflects the services I performed and decisions made by me, Edwin Wilson MD, as attested by the provider's signature.
[2019-01-23 18:47] LABS: BASO# 0.07 X1000 (0.0-0.2); BASO% 0.8 % (0.0-0.8); EOS# 0.09 X1000 (0.0-0.7); EOS% 1.1 % (0.0-10.0); HEMATOCRIT 25.7 % (42.0-52.0); IMM GRAN# 0.02 X1000 (0.0-0.04); IMM GRAN% 0.2 % (0.0-0.5); LYMPH# 0.91 X1000 (1.2-3.4); MCH 32.3 PG (27-31); MCHC 31.1 g/dL (33-37); MCV 103.6 FL (81-99); MONO% 9.6 % (1.7-9.3); MPV 9.5 FL (7.4-10.4); NEUT# 6.41 X1000 (1.4-6.5); NEUT% 77.3 % (42.2-75.2); PLT 312 X1000 (130-400); RBC 2.48 XMIL (4.7-6.1); RDW 17.2 % (11.5-14.5)
[2019-01-23 19:06] LABS: AGAP 13; ALBUMIN 2.9 g/dL (3.5-5.0); ALKALINE PHOSPHATASE 62 U/L (32-122); BUN 9 mg/dL (8-22); CALCIUM 8.2 mg/dL (8.8-10.2); CHLORIDE 98 mmol/L (98-107); COSMO 276; CREATININE 0.4 mg/dL (0.7-1.2); ESTIMATED GFR > 60; GLUCOSE 133 mg/dL (70-104); GOT 12 U/L (10-34); GPT 11 U/L (10-44); POTASSIUM 3.5 mmol/L (3.5-5.1); SODIUM 138 mmol/L (136-145); TCO2 27 mmol/L (25-35); TOTAL PROTEIN 5.7 g/dL (6.3-8.3)
[2019-01-23] MEDS ORDERED: LASIX IV ONE (20:14)
--- NOTE | 2019-01-23 20:31 | Diag Imaging Result Doc PS360 ---
CHEST-1 VIEW - 01/23/2019 INDICATION: sob COMPARISON: 01/11/2019 FINDINGS: Stable COPD changes. Stable ill-defined increased interstitial markings bilaterally. No pneumothorax or pleural effusion. Heart size remains normal. IMPRESSION: No change from prior. Electronically signed by Tex Mendosa 01/23/2019 8:28 PM
[2019-01-23] MEDS ORDERED: NITROGLYCERIN TOP ONE (22:37)
[2019-01-24] MEDS: ALBUTEROL NEB INH SCH ×7 (00:58→23:22)
[2019-01-24] MEDS ORDERED: VENTOLIN HFA INH PRN (06:33)
[2019-01-24] MEDS: LASIX IV SCH ×2 (06:49→18:45)
[2019-01-24] MEDS: PRILOSEC PO SCH (06:49)
[2019-01-24] MEDS: NON-FORMULARY MED (Fluticasone/Umeclidin/Vilanter [Trelegy Ellipta 100-62.5-25] 0 EA) INH SCH (07:33)
[2019-01-24] MEDS: ICAR-C PO SCH (08:00)
[2019-01-24] MEDS: THERA M PLUS PO SCH (08:01)
[2019-01-24] MEDS: CORDARONE PO SCH (08:01)
[2019-01-24] MEDS: FLONASE NAS SCH (08:01)
[2019-01-24] MEDS: GLUCOPHAGE PO SCH (08:01)
[2019-01-24] MEDS: ASPIRIN PO SCH (08:01)
[2019-01-24] MEDS: GLUCOTROL XL PO SCH (08:01)
--- NOTE | 2019-01-24 14:40 | HISTORY AND PHYSICAL ---
PRIMARY CARE PROVIDER: Dr. Tali Hartmann. INTERNETWORKING TECHNICIAN: Dr. Vicente. CHIEF COMPLAINT: Shortness of breath over the last 2 days with fever and increase in weakness. HISTORY OF PRESENT ILLNESS: Mr. Loving is a 63-year-old, male with a past medical history of paroxysmal atrial fibrillation, congestive heart failure, hypertension, and a recent GI bleed from diverticula. He was taken off his Eliquis and resumed on aspirin. COPD with home O2 at 4 L. He reported that over the last 2 days, he had an increase in his shortness of breath, a fever of 101.3 on the day of his admission prior to coming in, and he coughed up thick white sputum x1 yesterday as well. He had a bowel movement that was semiformed and dark in color. However, he stated it was not dark like his previous GI bleed. No bright red blood per rectum. He does have inspiratory wheezes upon exam. He denied any chest pain, palpitations, nausea, vomiting, diarrhea, headache. No chills. Workup in the ED showed an elevated proBNP of 1382. He did complain of some bilateral ankle edema that is new for him. Chest x-ray showed increased interstitial markings bilaterally and stable COPD changes. He was admitted for a CHF exacerbation and started on IV Lasix. We will continue him on IV Lasix and cover him with doxycycline. PAST MEDICAL HISTORY: 1. Recent GI bleed from diverticula. The patient was recently on Eliquis and taken off, and placed on aspirin. 2. Paroxysmal atrial fibrillation, follows with Dr. Vicente. On aspirin and amiodarone. 3. COPD, on continuous home O2 at 4 L. 4. Hypertension. 5. Diabetes mellitus type 2, on oral medications. 6. Congestive heart failure history. 7. Diverticula. PAST SURGICAL HISTORY: 1. EGD and colonoscopy. 2. Hernia repair. 3. Appendectomy. 4. Recent left heart catheterization. SOCIAL HISTORY: He was a smoker for 40 years, 3 to 4 cigars per day. Used to be a heavy drinker, 12 to 15 beers a day but has not had a drink in over a year. No illicit drug use. FAMILY HISTORY: Positive for hypertension. ALLERGIES: To the pneumonia vaccine and roflumilast. HOME MEDICATIONS: As per chart. REVIEW OF SYSTEMS: Twelve-point review of systems completely negative except for those mentioned in the HPI. PHYSICAL EXAMINATION: VITAL SIGNS: Current temperature is 99.8 degrees, heart rate 107, respirations 20, blood pressure 142/60, O2 is 97% on 4 L nasal cannula. GENERAL: Mr. Loving is a 63-year-old, male who is sitting up cross- legged in the bed, in no acute distress. HEENT: Atraumatic, normocephalic. PERRL. NECK: Supple. Trachea midline. CARDIOVASCULAR: S1, S2 appreciated. No murmurs, gallops, rubs noted. RESPIRATORY: Lung sounds did appreciate inspiratory wheezes. GI: Soft, nontender, nondistended. Positive bowel sounds in 4 quadrants. EXTREMITIES: Lower extremities, he does have bilateral ankle edema. Bilateral pedal pulses are trace. NEUROLOGIC: No focal deficits noted. DIAGNOSTIC DATA: Chest x-ray, ill-defined increased interstitial markings bilaterally, stable COPD changes. LABORATORY DATA: White count 8, hemoglobin and hematocrit 8 and 25, platelet count is 312,000. Chemistry: Sodium 138, potassium 3.5, BUN 9, creatinine 0.4, blood glucose is 133, currently 150. ProBNP was 1382. Troponin less than 0.010. ASSESSMENT AND PLAN: 1. Mild congestive heart failure exacerbation. He does not take any Lasix at home. We will continue with intravenous Lasix. He does complain of new bilateral ankle edema. We will recheck his proBNP and chest x-ray in the morning. 2.Question PNA. Previous discharge with pneumonia. cxr does not show PNA but patient does complain of fever, chills, as well as a one- time productive cough. We will check a sputum culture. Continue with oral doxycycline. 3. Atrial fibrillation. Continue with amiodarone. 4. Chronic obstructive pulmonary disease. He does not appear to be in exacerbation. We will continue with DuoNebs and his supplemental home oxygen. 5. Diabetes mellitus. Continue with Glucophage. Diabetic diet. 6. Anemia. We will check an occult stool, given his recent history of gastrointestinal bleed. He did complain of a darker colored stool he had this morning. We will continue him on Icar C and a multivitamin. 7. Hypertension, stable. 8. Further recommendations to follow physician evaluation, laboratory and diagnostic data. Dictated by AMAN Wheatley for Gary Cisneros MD cc: MD Tali Beebe MD Ashish K. Basu, MD [facility]PITALJoya
[2019-01-24] MEDS: TYLENOL PO PRN (17:34)
[2019-01-24] MEDS: DOXYCYCLINE PO SCH (20:39)
[2019-01-24] MEDS: PRAVACHOL PO SCH (20:39)
[2019-01-24] MEDS: METAMUCIL POWDER PACKET PO SCH (20:39)
--- NOTE | 2019-01-24 23:16 | HISTORY AND PHYSICAL ---
SUBJECTIVE: The patient is seen and examined by myself. Full note dictated and discussed with nurse practitioner. The patient is a 63-year-old male who presented to the hospital with increased work of breathing and shortness of breath. He notes that he has a history of atrial fibrillation with RVR, although this feels different. He has had increased work of breathing for the past couple of days. He was discharged approximately a week ago with pneumonia and at that time he had temperatures of 102 degrees. Since going home he notes that he is not having any fever, but has started having increased work of breathing. It appears as though he has a CHF exacerbation. We will admit him to the hospital, IV Jaclyn and we will follow. cc: Gary Cisneros MD
[2019-01-25] MEDS: ALBUTEROL NEB INH SCH ×6 (03:15→23:40)
[2019-01-25] MEDS: LASIX IV SCH ×2 (05:38→07:03)
[2019-01-25] MEDS: PRILOSEC PO SCH ×2 (05:38→07:03)
[2019-01-25 07:28] LABS: HEMATOCRIT 28.2 % (42.0-52.0); HEMOGLOBIN 8.6 g/dL (14.0-18.0); MCH 31.7 PG (27-31); MCHC 30.5 g/dL (33-37); MCV 104.1 FL (81-99); MPV 9.6 FL (7.4-10.4); RBC 2.71 XMIL (4.7-6.1); RDW 17.3 % (11.5-14.5); WBC 12.12 X1000 (4.8-10.8)
[2019-01-25] MEDS ORDERED: ALBUTEROL NEB ONE (07:43)
[2019-01-25] MEDS: NON-FORMULARY MED (Fluticasone/Umeclidin/Vilanter [Trelegy Ellipta 100-62.5-25] 0 EA) INH SCH (08:00)
[2019-01-25 08:20] LABS: AGAP 13; ALKALINE PHOSPHATASE 68 U/L (32-122); BUN 9 mg/dL (8-22); CALCIUM 9.1 mg/dL (8.8-10.2); CHLORIDE 95 mmol/L (98-107); COSMO 286; CREATININE 0.5 mg/dL (0.7-1.2); ESTIMATED GFR > 60; GLUCOSE 213 mg/dL (70-104); GOT 12 U/L (10-34); GPT 12 U/L (10-44); MAGNESIUM 1.5 mg/dL (1.5-2.7); POTASSIUM 3.1 mmol/L (3.5-5.1); SODIUM 141 mmol/L (136-145); TCO2 33 mmol/L (25-35); TOTAL PROTEIN 7.3 g/dL (6.3-8.3)
--- NOTE | 2019-01-25 08:20 | Diag Imaging Result Doc PS360 ---
EXAM: CHEST-PORTABLE HISTORY: dyspnea TECHNIQUE: Single view of the chest was performed portably. COMPARISON: 01/23/2019 and earlier. FINDINGS: The heart size is within normal limits. Diffuse groundglass infiltrates are again noted and may be slightly increased when compared with prior. More focal alveolar infiltrate persists at the left lung base. Mildly blunted costophrenic angles are noted. Pulmonary ray are prominent perhaps related to pulmonary arterial hypertension. IMPRESSION: Significant groundglass and interstitial infiltrates. Persistent alveolar consolidation left lower lobe. Electronically signed by Mary Jane Arita 01/25/2019 8:17 AM
[2019-01-25] MEDS: ICAR-C PO SCH (09:47)
[2019-01-25] MEDS: CORDARONE PO SCH (09:47)
[2019-01-25] MEDS: THERA M PLUS PO SCH (09:47)
[2019-01-25] MEDS: MIRALAX PO SCH (09:47)
[2019-01-25] MEDS: GLUCOPHAGE PO SCH (09:47)
[2019-01-25] MEDS: GLUCOTROL XL PO SCH (09:47)
[2019-01-25] MEDS: ASPIRIN PO SCH (09:48)
[2019-01-25] MEDS: FLONASE NAS SCH (09:48)
--- NOTE | 2019-01-25 10:35 | EKG Report ---
Test Performed on : 01/23/2019 5:57:02 PM Test Reason : ER Blood Pressure : / mmHG Vent. Rate : 103 BPM Atrial Rate : 103 BPM P-R Int : 176 ms QRS Dur : 128 ms QT Int : 364 ms P-R-T Axes : 068 -47 054 degrees QTc Int : 476 ms Sinus tachycardia. Indeterminate axis Right bundle branch block Abnormal ECG When compared with ECG of 07-JAN-2019 15:03, (Unconfirmed) QRS axis shifted left Unconfirmed Result
[2019-01-25] MEDS ORDERED: KLOR-CON PO ONE (18:02)
[2019-01-25] MEDS: PRAVACHOL PO SCH (21:09)
[2019-01-25] MEDS: DOXYCYCLINE PO SCH (21:09)
[2019-01-25] MEDS: METAMUCIL POWDER PACKET PO SCH (21:09)
[2019-01-25] MEDS: DUONEB (A & A) INH PRN (21:35)
--- NOTE | 2019-01-25 22:52 | PROGRESS NOTE ---
DATE: 01/25/2019 SUBJECTIVE: Patient notes that overall he is feeling better. He is still having some cough, congestion, shortness of breath, still having some difficulty breathing with ambulation. Denies any fevers or chills. Denies any production of cough OBJECTIVE: Vital Signs: Temperature 98.4, pulse 94, respiratory rate 18, BP 125/56. General: Patient is awake, currently is in no distress. Overall is feeling better. HEENT: Normocephalic. Neck: Supple. Cardiovascular: Regular rate. Chest: Clear. Abdomen: Soft. Extremities: Moves all extremities. ASSESSMENT: 1. Mild congestive heart failure. 2. Pneumonia. 3. Atrial fibrillation. 4. Chronic obstructive pulmonary disease. 5. Diabetes. 6. Anemia. PLAN: We will continue patient in the hospital. Continue Lasix. Continue current medications, and we will follow. cc: Gary Cisneros MD MTDD
[2019-01-25] MEDS: AMBIEN PO PRN (23:45)
[2019-01-25] MEDS: TYLENOL PO PRN (23:45)
[2019-01-26] MEDS: ALBUTEROL NEB INH SCH ×6 (03:53→23:37)
[2019-01-26] MEDS: PRILOSEC PO SCH ×2 (05:14→06:01)
[2019-01-26 06:01] LABS: BASO# 0.05 X1000 (0.0-0.2); BASO% 0.7 % (0.0-0.8); EOS# 0.16 X1000 (0.0-0.7); EOS% 2.2 % (0.0-10.0); HEMOGLOBIN 7.5 g/dL (14.0-18.0); IMM GRAN# 0.03 X1000 (0.0-0.04); IMM GRAN% 0.4 % (0.0-0.5); LYMPH# 1.27 X1000 (1.2-3.4); LYMPH% 17.8 % (20.5-51.1); MCH 31.5 PG (27-31); MONO# 0.88 X1000 (0.11-0.59); MONO% 12.3 % (1.7-9.3); MPV 9.8 FL (7.4-10.4); NEUT# 4.76 X1000 (1.4-6.5); NEUT% 66.6 % (42.2-75.2); PLT 347 X1000 (130-400); RBC 2.38 XMIL (4.7-6.1); RDW 17.2 % (11.5-14.5); WBC 7.15 X1000 (4.8-10.8)
[2019-01-26 06:26] LABS: AGAP 9; ALBUMIN 2.5 g/dL (3.5-5.0); ALKALINE PHOSPHATASE 67 U/L (32-122); BUN 11 mg/dL (8-22); CALCIUM 8.9 mg/dL (8.8-10.2); CHLORIDE 97 mmol/L (98-107); COSMO 284; CREATININE 0.4 mg/dL (0.7-1.2); ESTIMATED GFR > 60; GLUCOSE 234 mg/dL (70-104); GOT 18 U/L (10-34); GPT 18 U/L (10-44); MAGNESIUM 1.7 mg/dL (1.5-2.7); POTASSIUM 3.6 mmol/L (3.5-5.1); SODIUM 139 mmol/L (136-145); TCO2 32 mmol/L (25-35); TOTAL PROTEIN 6.5 g/dL (6.3-8.3)
[2019-01-26] MEDS: NON-FORMULARY MED (Fluticasone/Umeclidin/Vilanter [Trelegy Ellipta 100-62.5-25] 0 EA) INH SCH (07:38)
[2019-01-26] MEDS: GLUCOTROL XL PO SCH (09:07)
[2019-01-26] MEDS: THERA M PLUS PO SCH (09:07)
[2019-01-26] MEDS: ROCEPHIN 1 GM in NS 50 ML IV SCH (09:07)
[2019-01-26] MEDS: ICAR-C PO SCH (09:07)
[2019-01-26] MEDS: ASPIRIN PO SCH (09:07)
[2019-01-26] MEDS: GLUCOPHAGE PO SCH (09:07)
[2019-01-26] MEDS: MIRALAX PO SCH (09:08)
[2019-01-26] MEDS: CORDARONE PO SCH (09:08)
[2019-01-26] MEDS: FLONASE NAS SCH (09:08)
--- NOTE | 2019-01-26 11:19 | Diag Imaging Result Doc PS360 ---
EXAM: CT THORAX W/CONTRAST HISTORY: pneumonia TECHNIQUE: CT chest with intravenous contrast COMPARISON: 10/17/2018 FINDINGS: There are nodular infiltrates in the lower lobes which have developed since the prior exam. There is also severe emphysema. No pleural effusions. No cardiomegaly. There is mild pulmonary edema. No thoracic aortic aneurysm. Moderate atherosclerosis. Mildly prominent mediastinal and right hilar nodes which have increased in size since the prior study. IMPRESSION: 1.Multinodular bilateral infiltrates 2.Mildly prominent lymph nodes which haven't increased in size since the prior study 3.Emphysema This exam was performed using automated exposure control, adjustment of mA or kV according to patient size, and/or use of iterative reconstruction technique. Electronically signed by Domenico Ayoub 01/26/2019 11:17 AM
--- NOTE | 2019-01-26 14:14 | PROGRESS NOTE ---
DATE: 01/26/2019 SUBJECTIVE: Patient states he is still having some shortness of breath and coughing. Denies any fevers or chills. States he did have a bad night last night but feels much better this morning. PHYSICAL EXAMINATION: Temperature 98.4, pulse 102, respiratory rate 18, BP 110/53. General: The patient is awake, alert. Currently in no respiratory distress. HEENT: Normocephalic. Neck: Supple. Cardiovascular: Regular rate. Chest: Decreased but equal breath sounds. Minimal wheezing. Nonlabored currently. Abdomen: Soft and nondistended. Extremities: Moves all extremities. Neurologic: No changes. ASSESSMENT: 1. Abnormal chest x-ray. CT scan is pending. 2. Mild congestive heart failure. 3. Pneumonia. 4. Atrial fibrillation. 5. Chronic obstructive pulmonary disease. 6. Diabetes. PLAN: We will continue patient in the hospital. Continue to follow. Check CT scan. Further orders as needed. cc: Gary Cisneros MD
[2019-01-26] MEDS: DUONEB (A & A) INH PRN ×3 (18:15→22:01)
[2019-01-26] MEDS: DOXYCYCLINE PO SCH (21:41)
[2019-01-26] MEDS: AMBIEN PO PRN (21:41)
[2019-01-26] MEDS: PRAVACHOL PO SCH (21:41)
[2019-01-27] MEDS: ALBUTEROL NEB INH SCH ×6 (03:28→22:37)
[2019-01-27] MEDS: PRILOSEC PO SCH (06:01)
[2019-01-27 06:53] LABS: HEMATOCRIT 27.8 % (42.0-52.0); HEMOGLOBIN 8.4 g/dL (14.0-18.0); MCH 31.5 PG (27-31); MCHC 30.2 g/dL (33-37); MCV 104.1 FL (81-99); MPV 9.9 FL (7.4-10.4); RBC 2.67 XMIL (4.7-6.1); RDW 16.8 % (11.5-14.5); WBC 9.24 X1000 (4.8-10.8)
[2019-01-27 07:03] LABS: AGAP 11; ALBUMIN 2.5 g/dL (3.5-5.0); ALKALINE PHOSPHATASE 73 U/L (32-122); BUN 10 mg/dL (8-22); CALCIUM 8.9 mg/dL (8.8-10.2); CHLORIDE 97 mmol/L (98-107); COSMO 280; CREATININE 0.4 mg/dL (0.7-1.2); ESTIMATED GFR > 60; GLUCOSE 201 mg/dL (70-104); GOT 21 U/L (10-34); GPT 26 U/L (10-44); MAGNESIUM 1.5 mg/dL (1.5-2.7); POTASSIUM 3.9 mmol/L (3.5-5.1); SODIUM 138 mmol/L (136-145); TCO2 30 mmol/L (25-35); TOTAL PROTEIN 6.7 g/dL (6.3-8.3)
[2019-01-27] MEDS: NON-FORMULARY MED (Fluticasone/Umeclidin/Vilanter [Trelegy Ellipta 100-62.5-25] 0 EA) INH SCH (07:44)
[2019-01-27] MEDS: ROCEPHIN 1 GM in NS 50 ML IV SCH (09:27)
[2019-01-27] MEDS: ICAR-C PO SCH (09:30)
[2019-01-27] MEDS: CORDARONE PO SCH (09:30)
[2019-01-27] MEDS: FLONASE NAS SCH (09:30)
[2019-01-27] MEDS: THERA M PLUS PO SCH (09:31)
[2019-01-27] MEDS: GLUCOPHAGE PO SCH (09:31)
[2019-01-27] MEDS: ASPIRIN PO SCH (09:31)
[2019-01-27] MEDS: MIRALAX PO SCH (09:31)
[2019-01-27] MEDS: GLUCOTROL XL PO SCH ×2 (09:32→09:33)
[2019-01-27] MEDS: DUONEB (A & A) INH PRN (17:55)
[2019-01-27] MEDS: PRAVACHOL PO SCH (20:27)
[2019-01-27] MEDS: DOXYCYCLINE PO SCH (20:28)
[2019-01-27] MEDS: METAMUCIL POWDER PACKET PO SCH (20:28)
[2019-01-27] MEDS: AMBIEN PO PRN (20:31)
[2019-01-28] MEDS: ALBUTEROL NEB INH SCH ×6 (03:14→22:50)
[2019-01-28] MEDS: PRILOSEC PO SCH (06:18)
[2019-01-28] MEDS: NON-FORMULARY MED (Fluticasone/Umeclidin/Vilanter [Trelegy Ellipta 100-62.5-25] 0 EA) INH SCH (07:23)
[2019-01-28] MEDS: CORDARONE PO SCH ×2 (07:55→08:10)
[2019-01-28] MEDS: GLUCOTROL XL PO SCH ×2 (07:55→08:10)
[2019-01-28] MEDS: ROCEPHIN 1 GM in NS 50 ML IV SCH (07:56)
[2019-01-28] MEDS: THERA M PLUS PO SCH ×2 (07:56→08:11)
[2019-01-28] MEDS: MIRALAX PO SCH ×2 (07:56→08:11)
[2019-01-28] MEDS: GLUCOPHAGE PO SCH (07:56)
[2019-01-28] MEDS: ASPIRIN PO SCH ×2 (07:56→08:10)
[2019-01-28] MEDS: ICAR-C PO SCH ×2 (07:56→08:10)
[2019-01-28] MEDS: FLONASE NAS SCH (11:07)
--- NOTE | 2019-01-28 14:04 | PROGRESS NOTE ---
DATE: 01/28/2019 SUBJECTIVE: Patient notes he is starting to feel a little bit better although he still gets very winded. He attempted to sit in the chair yesterday for approximately 2 hours and was weak and had to have help to get back to his bed. Otherwise he is improving. PHYSICAL EXAMINATION: Temperature 98, pulse 92, respiratory 18, BP 110/62.General: Patient is awake. He is in no current respiratory distress although he is lying flatly in the bed has not been up yet this morning. HEENT: Normocephalic. Neck: Supple. Cardiovascular: Regular rate. Chest: Relatively clear. No crackles currently, no wheezing. Abdomen: Soft, nondistended, obese. Extremities: Moves all extremities. No edema. Neuro: No focal neurological changes, he is awake, alert, oriented x3. ASSESSMENT: 1. Mild congestive heart failure exacerbation. 2. Bilateral pneumonia. 3. Atrial fibrillation. 4. Chronic obstructive pulmonary disease. 5. Diabetes. 6. Anemia. 7. Hypertension. PLAN: Will continue doxycycline, Rocephin, continue Lasix although have changed p.o. and will follow. Expect that he will be in the hospital 2 or 3 more days. cc: Gary Cisneros MD
[2019-01-28 15:15] LABS: OCCULT BLOOD 1 NEGATIVE (NEGATIVE)
[2019-01-28] MEDS: DUONEB (A & A) INH PRN (19:45)
[2019-01-28] MEDS: METAMUCIL POWDER PACKET PO SCH (20:57)
[2019-01-28] MEDS: PRAVACHOL PO SCH (20:57)
[2019-01-28] MEDS: DOXYCYCLINE PO SCH (20:57)
[2019-01-28] MEDS: AMBIEN PO PRN (21:00)
[2019-01-29] MEDS: ALBUTEROL NEB INH SCH ×6 (03:24→22:45)
[2019-01-29] MEDS: PRILOSEC PO SCH (06:23)
[2019-01-29] MEDS: NON-FORMULARY MED (Fluticasone/Umeclidin/Vilanter [Trelegy Ellipta 100-62.5-25] 0 EA) INH SCH (07:52)
[2019-01-29] MEDS: GLUCOTROL XL PO SCH (08:08)
[2019-01-29] MEDS: MIRALAX PO SCH ×2 (08:08→08:11)
[2019-01-29] MEDS: CORDARONE PO SCH (08:08)
[2019-01-29] MEDS: ROCEPHIN 1 GM in NS 50 ML IV SCH ×2 (08:08→10:17)
[2019-01-29] MEDS: ICAR-C PO SCH (08:08)
[2019-01-29] MEDS: ASPIRIN PO SCH (08:08)
[2019-01-29] MEDS: GLUCOPHAGE PO SCH (08:08)
[2019-01-29] MEDS: THERA M PLUS PO SCH (08:08)
[2019-01-29] MEDS: FLONASE NAS SCH (08:12)
[2019-01-29] MEDS: LASIX PO SCH ×3 (08:18→20:24)
[2019-01-29] MEDS: BENADRYL PO PRN ×2 (10:22→21:29)
[2019-01-29] MEDS: DIFLUCAN PO SCH (10:22)
[2019-01-29] MEDS: OMNICEF PO SCH ×3 (10:23→20:24)
[2019-01-29] MEDS: TYLENOL PO PRN (15:04)
[2019-01-29] MEDS: AMBIEN PO PRN (19:51)
[2019-01-29] MEDS: DOXYCYCLINE PO SCH ×2 (19:51→20:23)
[2019-01-29] MEDS: METAMUCIL POWDER PACKET PO SCH ×2 (19:51→20:24)
[2019-01-29] MEDS: PRAVACHOL PO SCH ×2 (19:52→20:24)
--- NOTE | 2019-01-29 21:22 | PROGRESS NOTE ---
DATE: 01/29/2019 SUBJECTIVE: The patient notes that he is feeling better although he still gets very winded. He was able to get out of bed to the chair on his own but needed help getting back. PHYSICAL EXAMINATION: Vital Signs: Reviewed. Temperature 98.4 degrees, pulse 92, respiratory 18, BP 110/62. General: Patient is very pleasant. He is in no distress currently although he is sitting in bed and has recently had a breathing treatment. HEENT: Normocephalic. Neck: Supple. CV: Regular rate. Chest: Decreased but equal breath sounds. No current wheezing. No crackles. Abdomen: Soft, nondistended. Extremities: Moves all extremities. Neurologic: No focal changes. ASSESSMENT: 1. Pneumonia. 2. Congestive heart failure systolic with mild exacerbation. 3. Atrial fibrillation rate controlled. 4. Chronic obstructive pulmonary disease. 5. Diabetes. 6. Anemia of chronic disease. PLAN: We will continue patient in the hospital, continue doxycycline p.o., change Rocephin to Omnicef as he has lost his IV. We will continue Lasix and will follow. Hopefully he can discharge home tomorrow. cc: Gary Cisneros MD
[2019-01-30] MEDS: ALBUTEROL NEB INH SCH ×4 (03:30→15:53)
[2019-01-30] MEDS: BENADRYL PO PRN ×3 (06:27→20:39)
[2019-01-30] MEDS: PRILOSEC PO SCH (06:27)
[2019-01-30 06:31] LABS: HEMATOCRIT 24.7 % (42.0-52.0); HEMOGLOBIN 7.5 g/dL (14.0-18.0); MCH 31.6 PG (27-31); MCHC 30.4 g/dL (33-37); MCV 104.2 FL (81-99); MPV 9.8 FL (7.4-10.4); RBC 2.37 XMIL (4.7-6.1); WBC 9.08 X1000 (4.8-10.8)
[2019-01-30 06:51] LABS: AGAP 9; ALBUMIN 2.6 g/dL (3.5-5.0); ALKALINE PHOSPHATASE 84 U/L (32-122); BUN 9 mg/dL (8-22); CALCIUM 8.7 mg/dL (8.8-10.2); CHLORIDE 96 mmol/L (98-107); COSMO 279; CREATININE 0.5 mg/dL (0.7-1.2); ESTIMATED GFR > 60; GLUCOSE 207 mg/dL (70-104); GOT 16 U/L (10-34); GPT 29 U/L (10-44); SODIUM 137 mmol/L (136-145); TCO2 32 mmol/L (25-35); TOTAL PROTEIN 6.7 g/dL (6.3-8.3)
[2019-01-30] MEDS: NON-FORMULARY MED (Fluticasone/Umeclidin/Vilanter [Trelegy Ellipta 100-62.5-25] 0 EA) INH SCH (07:37)
[2019-01-30] MEDS: OMNICEF PO SCH (08:10)
[2019-01-30] MEDS: ICAR-C PO SCH (08:11)
[2019-01-30] MEDS: CORDARONE PO SCH (08:11)
[2019-01-30] MEDS: DIFLUCAN PO SCH (08:11)
[2019-01-30] MEDS: ASPIRIN PO SCH (08:11)
[2019-01-30] MEDS: THERA M PLUS PO SCH (08:11)
[2019-01-30] MEDS: FLONASE NAS SCH (08:11)
[2019-01-30] MEDS: LASIX PO SCH ×2 (08:11→20:39)
[2019-01-30] MEDS: GLUCOPHAGE PO SCH (08:11)
[2019-01-30] MEDS: GLUCOTROL XL PO SCH (08:16)
[2019-01-30] MEDS: MIRALAX PO SCH (08:16)
[2019-01-30 12:41] LABS: IRON SATURATION 12 %; TIBC 242 ug/dL; TOTAL IRON 29 ug/dL (53-167); UNBOUND IRON 213 ug/dL (112-346)
[2019-01-30 16:02] LABS: FERRITIN 138 ng/mL (30-400)
[2019-01-30] MEDS: LEVAQUIN PO SCH (17:42)
[2019-01-30] MEDS: DUONEB (A & A) INH SCH ×2 (19:40→23:52)
[2019-01-30] MEDS: AMBIEN PO PRN (20:39)
[2019-01-30] MEDS: PRAVACHOL PO SCH (20:39)
[2019-01-30] MEDS: DOXYCYCLINE PO SCH (20:39)
[2019-01-30] MEDS: METAMUCIL POWDER PACKET PO SCH (20:39)
[2019-01-30] MEDS: DUONEB (A & A) INH PRN (21:55)
[2019-01-31 05:30] LABS: AGAP 9; BUN 12 mg/dL (8-22); CALCIUM 8.7 mg/dL (8.8-10.2); CHLORIDE 94 mmol/L (98-107); COSMO 278; CREATININE 0.5 mg/dL (0.7-1.2); ESTIMATED GFR > 60; GLUCOSE 180 mg/dL (70-104); POTASSIUM 4.5 mmol/L (3.5-5.1); SODIUM 137 mmol/L (136-145); TCO2 34 mmol/L (25-35)
[2019-01-31 05:36] LABS: BASO# 0.09 X1000 (0.0-0.2); BASO% 1.1 % (0.0-0.8); EOS# 0.52 X1000 (0.0-0.7); EOS% 6.5 % (0.0-10.0); HEMATOCRIT 24.9 % (42.0-52.0); HEMOGLOBIN 7.5 g/dL (14.0-18.0); IMM GRAN# 0.07 X1000 (0.0-0.04); IMM GRAN% 0.9 % (0.0-0.5); LYMPH# 1.43 X1000 (1.2-3.4); LYMPH% 17.8 % (20.5-51.1); MCH 31.5 PG (27-31); MCHC 30.1 g/dL (33-37); MCV 104.6 FL (81-99); MONO# 0.98 X1000 (0.11-0.59); MONO% 12.2 % (1.7-9.3); MPV 9.7 FL (7.4-10.4); NEUT# 4.94 X1000 (1.4-6.5); NEUT% 61.5 % (42.2-75.2); PLT 603 X1000 (130-400); RBC 2.38 XMIL (4.7-6.1); WBC 8.03 X1000 (4.8-10.8)
[2019-01-31] MEDS: PRILOSEC PO SCH (06:18)
[2019-01-31 06:52] LABS: BANDS 4 % (0-1); EOS 3 % (1-10); LYMPHS 21 % (21-51); MONO 13 % (1-9); SEGS 59 % (42-75)
[2019-01-31 06:53] LABS: POIKILOCYTOSIS 1+; STOMATOCYTES 2+
[2019-01-31] MEDS: DUONEB (A & A) INH SCH ×5 (07:42→22:32)
[2019-01-31] MEDS: NON-FORMULARY MED (Fluticasone/Umeclidin/Vilanter [Trelegy Ellipta 100-62.5-25] 0 EA) INH SCH (07:42)
[2019-01-31] MEDS: BENADRYL PO PRN ×2 (08:00→20:21)
[2019-01-31] MEDS: GLUCOTROL XL PO SCH (08:00)
[2019-01-31] MEDS: DIFLUCAN PO SCH (08:00)
[2019-01-31] MEDS: ICAR-C PO SCH (08:00)
[2019-01-31] MEDS: ASPIRIN PO SCH (08:00)
[2019-01-31] MEDS: LASIX PO SCH ×2 (08:00→20:21)
[2019-01-31] MEDS: LEVAQUIN PO SCH (08:00)
[2019-01-31] MEDS: THERA M PLUS PO SCH (08:00)
[2019-01-31] MEDS: GLUCOPHAGE PO SCH (08:00)
[2019-01-31] MEDS: CORDARONE PO SCH (08:00)
[2019-01-31] MEDS: FLONASE NAS SCH (08:00)
[2019-01-31] MEDS: MIRALAX PO SCH (08:01)
[2019-01-31] MEDS ORDERED: BENADRYL PO ONE (09:29)
[2019-01-31] MEDS ORDERED: TYLENOL PO ONE (09:29)
[2019-01-31] MEDS ORDERED: LASIX IV SCH (09:30)
[2019-01-31] MEDS ORDERED: NS 500 ML ONE (13:02)
[2019-01-31] MEDS: AMBIEN PO PRN (20:21)
[2019-01-31] MEDS: METAMUCIL POWDER PACKET PO SCH (20:21)
[2019-01-31] MEDS: PRAVACHOL PO SCH (20:21)
[2019-01-31] MEDS: DOXYCYCLINE PO SCH (20:21)
[2019-02-01] MEDS: PRILOSEC PO SCH (06:09)
[2019-02-01 06:12] LABS: AGAP 10; BUN 14 mg/dL (8-22); CALCIUM 9.1 mg/dL (8.8-10.2); CHLORIDE 95 mmol/L (98-107); COSMO 278; CREATININE 0.5 mg/dL (0.7-1.2); ESTIMATED GFR > 60; GLUCOSE 206 mg/dL (70-104); POTASSIUM 4.2 mmol/L (3.5-5.1); SODIUM 136 mmol/L (136-145); TCO2 31 mmol/L (25-35)
[2019-02-01 06:25] LABS: BASO# 0.12 X1000 (0.0-0.2); BASO% 1.2 % (0.0-0.8); EOS# 0.46 X1000 (0.0-0.7); EOS% 4.7 % (0.0-10.0); HEMATOCRIT 28.4 % (42.0-52.0); HEMOGLOBIN 8.8 g/dL (14.0-18.0); IMM GRAN# 0.12 X1000 (0.0-0.04); IMM GRAN% 1.2 % (0.0-0.5); LYMPH# 1.27 X1000 (1.2-3.4); LYMPH% 12.8 % (20.5-51.1); MCH 31.1 PG (27-31); MCV 100.4 FL (81-99); MONO# 1.26 X1000 (0.11-0.59); MONO% 12.7 % (1.7-9.3); MPV 9.8 FL (7.4-10.4); NEUT# 6.66 X1000 (1.4-6.5); NEUT% 67.4 % (42.2-75.2); PLT 595 X1000 (130-400); RBC 2.83 XMIL (4.7-6.1); WBC 9.89 X1000 (4.8-10.8)
[2019-02-01 06:34] LABS: BANDS 2 % (0-1); EOS 3 % (1-10); LYMPHS 22 % (21-51); MONO 4 % (1-9); SEGS 69 % (42-75)
[2019-02-01] MEDS: DUONEB (A & A) INH SCH ×5 (07:23→23:21)
--- NOTE | 2019-02-01 08:14 | Diag Imaging Result Doc PS360 ---
CHEST-PORTABLE - 02/01/2019 INDICATION: hypoxia COMPARISON: 01/25/2019 FINDINGS: Stable hyperexpanded lungs compatible with COPD. There are faint scattered infiltrates bilaterally as seen on the recent CT. No new infiltrates. No pneumothorax or large pleural effusion. IMPRESSION: No change from prior. Electronically signed by Tex Mendosa 02/01/2019 8:11 AM
[2019-02-01] MEDS: LEVAQUIN 750 MG/D5W 750 MG/150 ML IVPB IV SCH (09:17)
[2019-02-01] MEDS: ICAR-C PO SCH (09:17)
[2019-02-01] MEDS: DIFLUCAN PO SCH (09:17)
[2019-02-01] MEDS: GLUCOPHAGE PO SCH (09:17)
[2019-02-01] MEDS: MIRALAX PO SCH ×2 (09:17→09:21)
[2019-02-01] MEDS: CORDARONE PO SCH (09:18)
[2019-02-01] MEDS: ASPIRIN PO SCH (09:18)
[2019-02-01] MEDS: GLUCOTROL XL PO SCH (09:18)
[2019-02-01] MEDS: LASIX PO SCH (09:18)
[2019-02-01] MEDS: THERA M PLUS PO SCH (09:18)
[2019-02-01] MEDS: FLONASE NAS SCH (09:19)
[2019-02-01] MEDS ORDERED: RELISTOR SUBQ ONE (12:19)
[2019-02-01] MEDS ORDERED: FERRLECIT 125 MG in NS 100 ML IV ONE (13:00)
[2019-02-01] MEDS: NON-FORMULARY MED (Fluticasone/Umeclidin/Vilanter [Trelegy Ellipta 100-62.5-25] 0 EA) INH SCH (15:00)
--- NOTE | 2019-02-01 15:09 | PROGRESS NOTE ---
DATE: 01/30/2019 SUBJECTIVE: The patient has no major complaints. He wants to go home but he also wants to ensure that he will not come back. He states he has been admitted several times in the last 2 months. He does well for about 3-4 days then gets fevers again and has to come back. He has had 3 admissions including this one and he had an admission in October that is exactly 2 months or 3 months, I guess there has been 4 admission since October. He sees Dr. Moses typically. One sputum culture grew out Achromobacter denitrificans, which was sensitive to ceftazidime, meropenem, Levaquin, Zosyn. He is currently on Omnicef, doxycycline once a day, and fluconazole. I do not think we are covering him that, resistant to Rocephin, may need to switch him to Levaquin. He is not allergic to Levaquin. His sputum culture this admission was negative. OBJECTIVE: Vital signs: Blood pressure is 103/54, heart rate 97, respiratory rate of 24, temperature 98.7, 93% on 4 L. He has been afebrile. Last temperature was on the 11th. Cardiovascular: Regular rate and rhythm. Pulmonary: Bilateral breath sounds clear to auscultation. Gastrointestinal: Soft, nontender, nondistended, bowel sounds are positive. Extremity exam: No clubbing or cyanosis, in fact had no peripheral edema. Neurological exam: Nonfocal. He still had diminished breath sounds at the bases. PROBLEM: 1. Multinodular infiltrates. This is new based on his CT scan. I do not know if this is recurrent pneumonia or atypical pneumonia. I am just getting a sense of possibility that maybe we are missing the underlying organisms. He does have a couple nodular infiltrates, can hardly tell if those look like any particular organism per say but again his only sputum culture grew out atypical bacteria. We may want to go ahead and treat for that for an extended period of time, perhaps 2-3 weeks, follow up with his PCP. 2. Congestive heart failure. I think he appears to be relatively well-compensated. Continue Lasix. 3. Atrial fibrillation. He is rate-controlled. He is on aspirin alone. He is not on any anticoagulant, unsure if that is because of bleeding risk. He was on Eliquis and developed a diverticular bleed but we will initiate SCDs because he is not on SCDs. DISPOSITION: Again, I anticipate possible discharge in the next couple of days pending his improvement in his breathing status. cc: Ezio Cedeño MD
[2019-02-01] MEDS: DUONEB (A & A) INH PRN (17:52)
[2019-02-01] MEDS: HUMULIN R (PARKWAY) SUBQ SCH ×2 (17:58→21:28)
[2019-02-01] MEDS: PRAVACHOL PO SCH (21:26)
[2019-02-01] MEDS: METAMUCIL POWDER PACKET PO SCH (21:27)
[2019-02-01] MEDS: AMBIEN PO PRN (21:27)
[2019-02-01] MEDS: DOXYCYCLINE PO SCH (21:27)
[2019-02-02] MEDS: DUONEB (A & A) INH PRN (04:17)
[2019-02-02] MEDS: HUMULIN R (PARKWAY) SUBQ SCH ×4 (06:57→21:39)
[2019-02-02] MEDS: PRILOSEC PO SCH (07:01)
[2019-02-02 07:18] LABS: BASO# 0.13 X1000 (0.0-0.2); BASO% 1.5 % (0.0-0.8); EOS# 0.44 X1000 (0.0-0.7); HEMATOCRIT 26.6 % (42.0-52.0); HEMOGLOBIN 8.1 g/dL (14.0-18.0); IMM GRAN# 0.11 X1000 (0.0-0.04); IMM GRAN% 1.3 % (0.0-0.5); LYMPH# 1.35 X1000 (1.2-3.4); LYMPH% 15.5 % (20.5-51.1); MCH 31.3 PG (27-31); MCHC 30.5 g/dL (33-37); MCV 102.7 FL (81-99); MONO% 11.5 % (1.7-9.3); MPV 9.3 FL (7.4-10.4); NEUT# 5.69 X1000 (1.4-6.5); NEUT% 65.2 % (42.2-75.2); PLT 578 X1000 (130-400); RBC 2.59 XMIL (4.7-6.1); RDW 18.7 % (11.5-14.5); WBC 8.72 X1000 (4.8-10.8)
[2019-02-02] MEDS: DUONEB (A & A) INH SCH ×5 (07:34→22:32)
[2019-02-02] MEDS: NON-FORMULARY MED (Fluticasone/Umeclidin/Vilanter [Trelegy Ellipta 100-62.5-25] 0 EA) INH SCH (07:34)
[2019-02-02 08:03] LABS: ANISOCYTOSIS 3+; BANDS 1 % (0-1); EOS 1 % (1-10); LYMPHS 11 % (21-51); MONO 9 % (1-9); SEGS 78 % (42-75)
[2019-02-02] MEDS: DOXYCYCLINE PO SCH (08:07)
[2019-02-02] MEDS: DIFLUCAN PO SCH (08:07)
[2019-02-02] MEDS: FLONASE NAS SCH (08:07)
[2019-02-02] MEDS: ICAR-C PO SCH (08:07)
[2019-02-02] MEDS: CORDARONE PO SCH (08:07)
[2019-02-02] MEDS: GLUCOTROL XL PO SCH (08:07)
[2019-02-02] MEDS: THERA M PLUS PO SCH (08:07)
[2019-02-02] MEDS: GLUCOPHAGE PO SCH (08:07)
[2019-02-02] MEDS: ASPIRIN PO SCH (08:07)
[2019-02-02] MEDS: MIRALAX PO SCH (08:10)
[2019-02-02] MEDS: LEVAQUIN 750 MG/D5W 750 MG/150 ML IVPB IV SCH (08:13)
[2019-02-02] MEDS ORDERED: AYR NASAL SPRAY NAS PRN (16:30)
[2019-02-02] MEDS: PREDNISONE PO SCH (16:44)
--- NOTE | 2019-02-02 19:49 | PROGRESS NOTE ---
DATE: 02/02/2019 SUBJECTIVE: The patient has no major complaints. OBJECTIVE: Vital Signs: Blood pressure 120/82, heart rate 92, respiratory rate 22, temperature 97.6 degrees, satting 97% on 4 L. Cardiovascular: Regular rate and rhythm. Pulmonary: Bilateral breath sounds. Clear to auscultation. GI: Soft, nontender, nondistended. Bowel sounds are positive. LABORATORY DATA: White count 8, hemoglobin and hematocrit 8 and 26, platelets of 578. PROBLEM LIST: 1. Recurrent pneumonia with multinodular infiltrates. Procalcitonin is normal which would argue that this is not infectious. I think at some point we may have to entertain other etiologies, cryptogenic organizing pneumonia, things of that nature. I am just going to make sure he follows up with Dr. Moses pretty closely. We will discuss with Dr. Moses at discharge tomorrow, and anticipate discharge tomorrow. I do think he should be on some steroids, though. I thought he had already been on methylprednisolone, but he is not currently getting any. 2. Atrial fibrillation appears to be stable. 3. Type 2 diabetes. We will continue to monitor his blood sugars. These have been pretty well controlled. They had not been analyzing them before. We will continue his medications. DISPOSITION: Anticipate discharge tomorrow on a course of steroids, antibiotics and follow closely. cc: Ezio Cedeño MD
[2019-02-02] MEDS: METAMUCIL POWDER PACKET PO SCH (21:38)
[2019-02-02] MEDS: PRAVACHOL PO SCH (21:38)
[2019-02-02] MEDS: AMBIEN PO PRN (21:43)
[2019-02-03] MEDS: PRILOSEC PO SCH (07:03)
[2019-02-03] MEDS: HUMULIN R (PARKWAY) SUBQ SCH ×2 (07:03→10:34)
[2019-02-03] MEDS: NON-FORMULARY MED (Fluticasone/Umeclidin/Vilanter [Trelegy Ellipta 100-62.5-25] 0 EA) INH SCH (08:05)
[2019-02-03] MEDS: DUONEB (A & A) INH SCH ×2 (08:05→11:25)
[2019-02-03] MEDS: FLONASE NAS SCH (08:46)
[2019-02-03] MEDS: LEVAQUIN 750 MG/D5W 750 MG/150 ML IVPB IV SCH (08:47)
[2019-02-03] MEDS: THERA M PLUS PO SCH (08:52)
[2019-02-03] MEDS: ICAR-C PO SCH (08:52)
[2019-02-03] MEDS: GLUCOTROL XL PO SCH (08:52)
[2019-02-03] MEDS: ASPIRIN PO SCH (08:52)
[2019-02-03] MEDS: DIFLUCAN PO SCH (08:52)
[2019-02-03] MEDS: CORDARONE PO SCH (08:52)
[2019-02-03] MEDS: GLUCOPHAGE PO SCH (08:53)
[2019-02-03] MEDS: PREDNISONE PO SCH (08:53)
[2019-02-03] MEDS: MIRALAX PO SCH (08:57)
[2019-02-03 13:35] VITALS: BP 138/65
--- NOTE | 2019-02-04 02:50 | DISCHARGE SUMMARY ---
ADMISSION DATE: 01/24/2019 DISCHARGE DATE: 02/03/2019 ADMISSION DIAGNOSIS: 1. Mild congestive heart failure, acute on chronic, systolic. 2. Questionable pneumonia. 3. Atrial fibrillation. 4. Chronic obstructive pulmonary disease. No exacerbation. 5. Diabetes mellitus type 2. 6. Anemia. 7. Hypertension, stable. DISCHARGE DIAGNOSIS: 1. Recurrent pneumonia with multinodular infiltrates. 2. Atrial fibrillation. 3. Diabetes mellitus type 2. 4. Mild acute on chronic systolic congestive heart failure, resolved. 5. IgA deficiency. CONSULTATIONS: Palliative care. SURGERIES AND PROCEDURES: None. HOSPITAL COURSE: On 01/23/2019, Mr. Everett Loving presented to the ER. He was admitted fully on 01/24/2019. He had presented with complaints of shortness of breath over the last 2 days prior to admit along with fever and increased weakness. Apparently, he had a recent GI bleed. Was taken off Eliquis and resumed on aspirin. He has a history of COPD and is on 4 L of oxygen at home, but apparently started having more shortness of breath 2 days prior to admission with a subjective fever of 101.3. He was coughing up thick white phlegm. Had a bowel movement that was dark in color. Had some expiratory wheezing. Denied chest pain. ProBNP was 1382. Also has been complaining of lower extremity ankle edema. The chest x-ray showed COPD changes. He was initiated on Lasix and was also covered with doxycycline. Current smoker of 3 to 4 cigars per day. He was continued on Lasix. Had a chest CT that showed some infiltrate. He was continued on doxycycline. At some point, Rocephin was added. Lasix was changed eventually to p.o. His sputum culture was gram-positive cocci but eventually normal carlton. Procalcitonin was also normal. He had lost his IV so he went to p.o. doxycycline and p.o. Omnicef with p.o. Lasix and after discharge he will need to follow up with Dr. 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 Steroids were also initiated while he was here but only towards the end of his admission. DISCHARGE VITAL SIGNS: Temperature 98.0 degrees, heart rate 89, respiratory rate 20, blood pressure 138/65, O2 saturation 93% on 4 L nasal cannula. DISCHARGE LAB DATA: None today. Yesterday, he had a CBC. It showed a white blood cell count of 8000, hemoglobin 8, hematocrit 26, platelet count 578,000. His blood glucose level today was 2002. He had a BMP on the , sodium 136, potassium 4.2, BUN 14, creatinine 0.5, calcium was 9.1. His iron studies, he had a little bit of a low iron count 29 when he was here. He did have a quite a bit of an elevated CRP at 107. He had immunoglobulin levels drawn, the IgA was actually low. IgG was normal. IgM was normal. Procalcitonin was normal. Urine histoplasmosis antigen was negative. TB skin test negative. IMAGIN01/23/2019 chest x-ray, no change from prior, ill-defined increased interstitial markings bilaterally, stable COPD changes. EKG, sinus tachycardia, rate 103, QTc is 476. On 01/25/2019 chest x-ray, significant ground-glass and interstitial infiltrate. Persistent alveolar consolidation in left lower lobe. Chest CT on the , multinodular bilateral infiltrates, mildly prominent lymph nodes which have not increased in size since the prior study and it shows emphysema. Chest x-ray on the , stable hyperexpanded lungs compatible with COPD, there are faint scattered infiltrates bilaterally as seen on recent CT, no new infiltrates. DISCHARGE MEDICATIONS: 1. Ambien 10 mg p.o. nightly. 2. Pravastatin 40 mg p.o. nightly. 3. Amiodarone 200 mg p.o. daily. 4. Fluticasone nasal spray once daily. 5. Glipizide 5 mg p.o. daily. 6. Iron with ascorbic acid 1 tablet p.o. daily. 7. Albuterol/Atrovent inhaled p.r.n. 8. Metformin 1000 mg p.o. daily. 9. Fluticasone/umeclidinium/vilanterol inhaled daily. 10. Albuterol Ventolin 2 puffs inhaled every 6 hours as needed. 11. Metamucil once nightly. 12. Aspirin 81 mg p.o. daily. 13. Multivitamin once daily. 14. Omeprazole 20 mg p.o. daily. 15. Two new medications that he will go home with to treat his pneumonia and COPD, #1 Levaquin 500 mg p.o. daily for 2 weeks and a prednisone taper. DISCHARGE DIET: Diabetic diet. DISCHARGE ACTIVITY: As tolerated. FOLLOWUP: Follow up with Tali Hartmann and also need to follow up with Dr. Moses. DISCHARGE INSTRUCTIONS: Follow up with Dr. Moses next week. Please set up appointment prior to discharge. Seek attention for worsening dyspnea or cough. If your condition changes, contact your physician and/or return to the emergency department. Changes may include, but are not limited to, shortness of breath, increased fatigue, excess bleeding, unexplained weight loss or gain, signs or symptoms of infection. DISCHARGE DISPOSITION: Home. Dictated by AMAN Zaman for Ezio Cedeño MD cc: AMAN Zaman MD [facility]
[2019-02-04 12:40] LABS: ANTINEUTROPHIL CYTOPLASMIC AB SEE COMMENTS
== END 2019-02-03 14:45 | disposition home or self-care (01) | DRG 291 ==
LOC: P.ED 18:05 → P.MEDSURG 22:52 → SUATTDRO 22:52
PROVIDERS: ATTEND Internal Medicine
CPT/HCPCS: 36415; 36430; 71010; 71045; 71260; 80048; 80053; 82270; 82607; 82728; 82746; 82784; 82805; 82948; 83516; 83540; 83550; 83735; 83880; 84145; 84484; 85025; 85027; 85651; 86038; 86039; 86140; 86480; 86850; 86900; 86901; 86920; 87040; 87070; 87205; 87385; 93005; 94640; 94761; 96365; 96375; 99285; A9270; J0696; J1815; J1940; J1956; J2916; J7040; J7506; J7512; P9016; Q9967; XXXXX